=== PATIENT | female | born 1935 | race Caucasian/White ===

== ENCOUNTER 2016-10-12 16:04 | Emergency (ER) | payer OTHER ==
[2016-10-12 16:19] VITALS: BP 142/67; BMI 24.3
--- NOTE | 2016-10-12 18:44 | DR.GENAD ---
HPI - PCP Primary Care Physician: SUHAIL REINA - Complaint/Symptoms Chief Complaint Doctors Comments: Patient fell two weeks ago, again last week. Today c/o left shoulder pain unable to abduct arm. Chief Complaint:: LIMITED ROM OF LEFT ARM,PAIN TO TOUCH, PAIN IN LEFT NECK - Source History Provided: Patient, Family Member - Mode of Arrival Mode of Arrival: Ambulatory - Timing Onset of Chief Complaint: 10/11/16 PMH - PMH Past Medical History: Yes Past Medical History: Diabetes, Hypertension Past Surgical History: Yes Surgical History: Cholecystectomy, Hysterectomy, Ortho Surgery - Family History History of Family Medical Conditions: Yes Family Medical History: ID - Social History Does patient currently use any type of tobacco product: No Have you used tobacco products in the last 12 months: No Type of Tobacco Use: None Does any household member use tobacco: Yes Alcohol Use: None Do you use any recreational Drugs:: No Lives With: Alone Lives Where: Home - infectious screening In the last 2 months have you had wt loss of >10#?: NO Have you had fever, night sweats or hemotysis?: No Have you traveled outside the country in the last 6 months?: No Isolation: Standard ROS - Review of Systems Constitutional: No Symptoms Reported Eyes: No Symptoms Reported ENTM: No Symptoms Reported Respiratoy: No Symptoms Reported Cardiovascular: No Symptoms Reported Gastrointestinal/Abdominal: No Symptoms Reported Genitourinary: No Symptoms Reported Neurological: No Symptoms Reported Musculoskeletal: Joint Pain Integumentary: No Symptoms Reported Hematologic/Lymphatic: No Symptoms Reported Endocrine: No Symptoms Reported Psychiatric: No Symptoms Reported All Other Systems: Reviewed and Negative PE - Vital Signs Vitals: Temperature 97.3 F Pulse Rate 84 Respiratory Rate 16 Blood Pressure [Right Calf] 136/67 Blood Pressure [Left Calf] 155/63 Blood Pressure [Left Arm] 130/65 Blood Pressure [Right Arm] 135/67 Blood Pressure 142/67 O2 Sat by Pulse Oximetry 99 - General Limitations: No Limitations General Appearance: Alert, In No Apparent Distress - Head Head Exam: Normal Inspection, Atraumatic - Eyes Eye exam: Normal Appearance, PERRL, EOMI - ENT ENT Exam: Normal Exam External Ear Exam: Normal External Inspection TM/Canal Exam: Bilateral Normal Nose Exam: Normal Nose Exam Mouth Exam: Normal Inspection Throat Exam: Normal Inspection - Neck Neck Exam: Normal Inspection - Chest Chest Inspection: Normal Inspection - Respiratory Respiratory Exam: Normal Lung Sounds Bilat Respiratory Exam: Bilateral Clear to Auscultation - Cardiovascular Cardiovascular Exam: Regular Rate, Normal Rhythm - Abdominal Exam Abdominal Exam: Normal Inspection Abdominal Tenderness: negative: RUQ, RLQ, LUQ, LLQ, Epigastrium, Suprapubic, Diffuse, Mild, Moderate, Severe, Other - Extremities Extremities Exam: Normal Inspection - Back Back Exam: Normal Inspection - Neurologic Neurological Exam: Alert, Oriented X3, CN II-XII Intact - Psychiatric Psychiatric Exam: Normal Affect - Skin Skin Exam: Warm, Dry, Intact ROR - XRAY XRAY Interpreted by: Radiologist (Shoulder: negative for fracture; Mild osteoarthrosis of the left AC joint. 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
--- NOTE | 2016-10-12 19:10 | RAD ---
Two views of the left arm indication: Arm pain after fall 2 weeks prior with limited range of motion Findings: There is no fracture or dislocation within the left arm. No localizing soft tissue swellin g. Glenohumeral joint alignment is maintained. Mild osteoarthrosis of the left AC joint. Osteopenia is noted within the left upper extremity No displaced left-sided rib fracture identified. Impression: No acute radiographic abnormality within the left arm. Reported By:
[2016-10-12] MEDS ORDERED: DECADRON INJ IM ONE (19:30)
[2016-10-12] MEDS ORDERED: DECADRON INJ ONE (19:58)
== END 2016-10-12 20:10 | disposition home or self-care (01) ==
LOC: ER 16:28
DX: M19.012 Primary osteoarthritis, left shoulder (principal); W19.XXXA Unspecified fall, initial encounter
CPT/HCPCS: 73060; 96372; 99282; J1100

== ENCOUNTER → 2017-01-13 | Outpatient (CLI) | payer OTHER ==
--- NOTE | 2017-01-13 14:25 | MRI ---
Left shoulder MRI without contrast Indication: Shoulder pain with history of falls Technique: Multi sequence, multiplanar MR images of the left shoulder were obtained without contrast . Comparison: Left humerus radiograph October 12, 2016 Findings: Bone marrow signal appears normal. No acute fracture, malalignment or suspicious osseous l esion is identified. There is moderate tendinosis of the supraspinatus tendon without discrete tear identified. There is also moderate tendinosis of the infraspinatus, which demonstrates a focal, possibly full-thickness t ear of its mid fibers at the footplate with a laminating component extending to the myotendinous donna ction. Moderate fluid is present within the deep delaminating defect. There is a low grade, partial thickness articular sided tear of the mid subscapularis tendon, also with a delaminating component e xtending to the myotendinous junction (sagittal PD images 11-15, series 901). The teres minor appear s intact. There is no significant atrophy or edema of the rotator cuff musculature. There is mild degenerative arthrosis of the AC joint. A small os acromiale is suspected along the an terior aspect of the acromion (best appreciated on sagittal T1 images 18-20, series 801). There is n o appreciable edema of the synchondrosis. The type 2 acromion shows no appreciable anterior or later al downsloping. There is moderate fluid within the subdeltoid/subacromial bursa. There is mild chond romalacia of the glenohumeral joint. The long head biceps tendon appears intact and is appropriately positioned within the bicipital groo ve. There are tears of the anterior superior, superior posterior as well as posterior inferior gleno id labrum. Impression: 1. Diffuse rotator cuff tendinosis with focal, likely full thickness tear of the mid infraspinatus a nd partial thickness articular sided tear of the mid subscapularis tendon, both of which demonstrate delaminating components extending to the myotendinous junctions, as detailed above. 2. Large labral tears, involving the anterior superior, posterior superior and posterior inferior la cipriano. 3. Mild AC joint DJD with moderate fluid in the subdeltoid bursa, compatible with bursitis. A small os acromiale is also suspected. Reported By:
== END | disposition home or self-care (01) | DRG 556 ==
LOC: RAD 09:21
PROVIDERS: ATTEND Internal Medicine
DX: M25.512 Pain in left shoulder (principal); S43.492A Other sprain of left shoulder joint, initial encounter; X58.XXXA Exposure to other specified factors, initial encounter
CPT/HCPCS: 73221

== ENCOUNTER 2017-01-27 10:06 | Observation (INO) | payer OTHER ==
[2017-01-27] MEDS ORDERED: HumuLIN R SUBCUT PRN (11:32)
[2017-01-27 12:00] LABS: BASOPHILS # (AUTO) 0.1 X10^3/uL (0.0-0.1); BASOPHILS % (AUTO) 0.4 % (0.2-1.0); HEMATOCRIT 38.2 % (36.0-47.0); HEMOGLOBIN 13.2 g/dL (12.0-16.0); LYMPHOCYTES # (AUTO) 1.9 X10^3/uL (1.3-2.9); LYMPHOCYTES % (AUTO) 12.8 % (21.0-51.0); MEAN CORPUSCULAR HEMOGLOBIN 33.3 pg (27.0-34.0); MEAN CORPUSCULAR HGB CONC 34.5 g/dL (33.0-35.0); MEAN CORPUSCULAR VOLUME 96.6 fL (80.0-100.0); MEAN PLATELET VOLUME 8.5 fL (7.4-11.0); MONOCYTES # (AUTO) 1.2 x10^3/uL (0.3-0.8); MONOCYTES % (AUTO) 7.6 % (0.0-13.0); NEUTROPHILS % (AUTO) 79.2 % (42.0-75.0); PLATELET COUNT 288 X10^3/uL (150.0-450.0); RED BLOOD COUNT 3.96 X10^6/uL (3.5-5.4); RED CELL DISTRIBUTION WIDTH 14.5 % (11.6-16.5); WHITE BLOOD COUNT 15.2 X10^3/uL (3.6-10.0)
[2017-01-27 12:19] LABS: ALANINE AMINOTRANSFERASE 105 Units/L (12-78); ALBUMIN 4.1 g/dL (3.4-5.0); ALKALINE PHOSPHATASE 83 Units/L (46-116); ASPARTATE AMINO TRANSFERASE 77 Units/L (15-37); BLOOD UREA NITROGEN 17 mg/dL (7-18); CALCIUM 8.9 mg/dL (8.5-10.1); CARBON DIOXIDE 26.7 mmol/L (21-32); CHLORIDE 98 mmol/L (98-107); CREATININE 0.64 mg/dL (0.55-1.02); GLUCOSE 64 mg/dL (65-99); SODIUM 135 mmol/L (136-145); TOTAL PROTEIN 7.9 g/dL (6.4-8.2); eGFR BLACK RACES > 60 (>60); eGFR NON BLACK RACES > 60 (>60)
[2017-01-27 13:00] VITALS: BMI 22.6
[2017-01-27] MEDS: TORADOL 15 MG VIAL IVP SCH ×3 (13:05→23:58)
[2017-01-27] MEDS: NS 1000 ML 1,000 ML IV SCH (13:06)
--- NOTE | 2017-01-27 13:22 | DR.UPDATE ---
H&P Update History and Physical Update: WAS SEEN IN THE OFFICE ON 01/26/17. A H&P WAS COMPLETED PRIOR TO ADMISSION. PATIENT HAS BEEN SEEN AND EXAMINED WITH NO CHANGES NOTED. Changes noted: NO Yes with the following:
--- NOTE | 2017-01-27 15:49 | MRI ---
Reported By: ORY: Severe neck pain. Study: MRI cervical spine without contrast. Comparison: None. Technique: Multiplanar multisequence MRI of the cervical spine was obtained utilizing standard depar tmental protocol. Findings: The visualized posterior fossa appears normal. No cerebellar tonsillar ectopia. Anatomic alignment w ithout acute fracture or listhesis. Multilevel disc desiccation without significant disc height loss . Visualized bone marrow signal appears normal. The spinal cord demonstrates normal course, caliber, and signal characteristics. The prevertebral soft tissues appear normal. C2 -- C3: No significant disc bulge, neural foraminal narrowing, or spinal canal stenosis. C3 -- C4: Broad-based disc bulge with associated uncovertebral hypertrophy causing moderate to sever e bilateral neural foraminal narrowing. No significant spinal canal stenosis. Suggestion of posterio r annular tear. C4 -- C5: Broad-based disc bulge with associated uncovertebral hypertrophy causing mild/moderate lef t neural foraminal narrowing. No significant right neural foraminal narrowing or spinal canal stenos is. C5 -- C6: No significant disc bulge, neural foraminal narrowing, or spinal canal stenosis. C6 -- C7: Broad-based disc bulge with associated uncovertebral hypertrophy causing moderate left shannon ral foraminal narrowing and spinal canal stenosis to 10 mm. No significant right neural foraminal na rrowing. C7 -- T1: Broad-based disc bulge and associated uncovertebral hypertrophy causing moderate to severe right and moderate left neural foraminal narrowing. Spinal canal stenosis to 8 mm. IMPRESSION: Multilevel degenerative changes of the cervical spine as above.
[2017-01-27] MEDS: SNACK - Diabetic Appropriate PO SCH (20:17)
[2017-01-27] MEDS ORDERED: NORCO 7.5/325 MG TAB PO PRN (21:08)
[2017-01-27] MEDS ORDERED: NEURONTIN CAP 300 MG PO SCH (21:08)
[2017-01-27] MEDS ORDERED: GLUCOPHAGE PO SCH (21:09)
[2017-01-27] MEDS ORDERED: PATIENT'S HOME MEDICATION (Simvastatin [Simvastatin] 1 TAB) PO SCH (21:10)
[2017-01-27] MEDS ORDERED: QUINAPRIL HCL 20 MG PO SCH (21:10)
[2017-01-27] MEDS ORDERED: PATIENT'S HOME MEDICATION PO SCH (21:30)
[2017-01-27] MEDS ORDERED: GLUCOPHAGE ONE (23:51)
[2017-01-27] MEDS: ZYLOPRIM PO SCH (23:55)
[2017-01-27] MEDS: DULOXETINE HCL PO SCH (23:56)
[2017-01-27] MEDS: ANTIVERT TAB 25 MG PO SCH (23:57)
[2017-01-27] MEDS: ZOCOR TAB 40 MG PO SCH (23:58)
[2017-01-28] MEDS: NS 1000 ML 1,000 ML IV SCH ×3 (01:11→18:18)
[2017-01-28] MEDS: TORADOL 15 MG VIAL IVP SCH ×4 (05:41→23:38)
[2017-01-28 06:13] LABS: ALANINE AMINOTRANSFERASE 70 Units/L (12-78); ALBUMIN 3.2 g/dL (3.4-5.0); ALKALINE PHOSPHATASE 70 Units/L (46-116); ASPARTATE AMINO TRANSFERASE 38 Units/L (15-37); BLOOD UREA NITROGEN 11 mg/dL (7-18); CALCIUM 8.1 mg/dL (8.5-10.1); CARBON DIOXIDE 25.2 mmol/L (21-32); CHLORIDE 104 mmol/L (98-107); COR CA(FOR HYPOALB) 8.7 mg/dL (8.5-10.1); COR NA(FOR HYPERGLY) 138 mmol/L (136-145); CREATININE 0.62 mg/dL (0.55-1.02); GLUCOSE 116 mg/dL (65-99); SODIUM 138 mmol/L (136-145); TOTAL PROTEIN 6.4 g/dL (6.4-8.2); eGFR BLACK RACES > 60 (>60); eGFR NON BLACK RACES > 60 (>60)
[2017-01-28 06:17] LABS: BASOPHILS % (AUTO) 0.1 % (0.2-1.0); HEMATOCRIT 34.7 % (36.0-47.0); HEMOGLOBIN 12.1 g/dL (12.0-16.0); LYMPHOCYTES # (AUTO) 1.5 X10^3/uL (1.3-2.9); LYMPHOCYTES % (AUTO) 20.7 % (21.0-51.0); MEAN CORPUSCULAR HEMOGLOBIN 33.6 pg (27.0-34.0); MEAN CORPUSCULAR HGB CONC 34.8 g/dL (33.0-35.0); MEAN CORPUSCULAR VOLUME 96.4 fL (80.0-100.0); MEAN PLATELET VOLUME 8.6 fL (7.4-11.0); MONOCYTES # (AUTO) 0.4 x10^3/uL (0.3-0.8); MONOCYTES % (AUTO) 4.8 % (0.0-13.0); NEUTROPHILS # (AUTO) 5.5 x10^3/uL (2.2-4.8); NEUTROPHILS % (AUTO) 74.4 % (42.0-75.0); PLATELET COUNT 223 X10^3/uL (150.0-450.0); RED CELL DISTRIBUTION WIDTH 14.4 % (11.6-16.5); WHITE BLOOD COUNT 7.4 X10^3/uL (3.6-10.0)
[2017-01-28] MEDS ORDERED: GLUCOTROL PO SCH (07:00)
[2017-01-28] MEDS: ACCUPRIL PO SCH (08:56)
[2017-01-28] MEDS: NORVASC TAB 10 MG PO SCH (08:56)
[2017-01-28] MEDS: ANTIVERT TAB 25 MG PO SCH ×2 (08:56→21:28)
[2017-01-28] MEDS: DULOXETINE HCL PO SCH (08:57)
[2017-01-28] MEDS: SINGULAIR TAB 10 MG PO SCH (08:59)
[2017-01-28] MEDS ORDERED: GLIPIZIDE 5 MG PO SCH (09:00)
[2017-01-28] MEDS ORDERED: MILK OF MAGNESIA PO PRN (10:24)
[2017-01-28] MEDS: CYMBALTA PO SCH (11:14)
[2017-01-28] MEDS: PERCOCET TAB 5/325 MG PO SCH ×3 (11:15→21:28)
[2017-01-28] MEDS: NEURONTIN CAP 300 MG PO SCH ×2 (13:15→21:28)
--- NOTE | 2017-01-28 16:14 | PCM.PROG ---
Progress Note - Progress Note for Day of Date: 01/28/17 - Subjective Subjective: IS ALERT AND ORIENTED, SITTING UP IN BED ON MORNING ROUNDS. PATIENT'S DAUGHTER IS AT BEDSIDE. PATIENT IS NOTED WITH COMPLAINTS OF NECK PAIN AND LEFT SHOULDER PAIN. SHE REPORTS SOME RELIEF OF PAIN AFTER RECEIVING TORADOL, BUT STATES THAT PAIN RETURNS WHEN MEDICATION WEARS OFF. VITAL THIS MORNING ARE 98.1-86-18-94%-110/59. CBC REPORTS WBC 7.9, HGB 12.1, HCT 34.7. CMP REPORTS SODIUM 138, POTASSIUM 3.8, BUN 11, CREATININE 0.62, GLUCOSE 116, AST 38, ALT 70, TOTAL PROTEIN 6.4, ALBUMIN 3.2. ALL OTHER VALUES WITHIN NORMAL LIMITS. WE OBTAINED A CERVICAL SPINE CT WITHOUT CONTRAST. IT REPORTED MULTILEVEL DEGENERATIVE CHANGES OF THE C-SPINE. WE WILL START GABAPENTIN 300MG PO TID, PERCOCET 5/325 PO TID, AND PROZAC 30MG DAILY TO CONTROL PAIN. WE PLAN TO RECHECK LABS AND FOLLOW UP WITH PATIENT IN AM. - Past Medical Family Social History Past Med/Fam/Surg Hx: No changes since H&P Allergies: Allergies aspirin Allergy (Verified 01/27/17 11:32) fluconazole [From Diflucan] Allergy (Verified 01/27/17 11:08) rofecoxib [From Vioxx] Allergy (Verified 01/27/17 11:08) tizanidine [From Zanaflex] Allergy (Verified 01/27/17 11:08) - Review of Systems ROS: No change since H&P - Vital Signs and I&O's Vital Signs: Temperature 98.2 F Pulse Rate [Right Brachial] 85 Respiratory Rate 20 Blood Pressure [Right Calf] 136/67 Blood Pressure [Left Calf] 155/63 Blood Pressure [Left Arm] 130/65 Blood Pressure [Right Arm] 129/58 Blood Pressure 142/67 O2 Sat by Pulse Oximetry 97 Intake and Output: Intake & Output 01/26/17 01/27/17 01/28/17 01/29/17 11:59 11:59 11:59 11:59 Intake Total 1514 1194 Output Total 500 800 Balance 1014 394 - Physical Exam Oriented: Normal Eyes: Normal Ear: Normal Nose: Normal Throat: Normal Respiratory: Normal Cardiovascular: Normal : Normal Auscultation: Bowel Sounds: Normal Palpation: Normal Tenderness: Normal Skin: Normal Musculoskeletal: Left, Shoulder (PAIN AND TENDERNESS TO LEFT SHOULDER AND NECK ) , Tender Psychiatric: Normal. negative: Anxiety, Depression, Agitation, Other Mood Description: Calm Affect: Normal Speech Pattern: Clear, Appropriate - Laboratory and Diagnostics Result Diagrams: 01/28/17 05:33 01/28/17 11:40 Labs: Laboratory WBC 7.4 X10^3/uL (3.6-10.0) 01/28/17 05:33 RBC 3.60 X10^6/uL (3.5-5.4) 01/28/17 05:33 Hgb 12.1 g/dL (12.0-16.0) 01/28/17 05:33 Hct 34.7 % (36.0-47.0) L 01/28/17 05:33 MCV 96.4 fL (80.0-100.0) 01/28/17 05:33 MCH 33.6 pg (27.0-34.0) 01/28/17 05:33 MCHC 34.8 g/dL (33.0-35.0) 01/28/17 05:33 RDW 14.4 % (11.6-16.5) 01/28/17 05:33 Plt Count 223 X10^3/uL (150.0-450.0) 01/28/17 05:33 MPV 8.6 fL (7.4-11.0) 01/28/17 05:33 Neut % 74.4 % (42.0-75.0) 01/28/17 05:33 Lymph % 20.7 % (21.0-51.0) L 01/28/17 05:33 Bradford % 4.8 % (0.0-13.0) 01/28/17 05:33 Eos % 0.0 % (0.9-2.9) L 01/28/17 05:33 Baso % 0.1 % (0.2-1.0) L 01/28/17 05:33 Neut # 5.5 x10^3/uL (2.2-4.8) H 01/28/17 05:33 Lymph # 1.5 X10^3/uL (1.3-2.9) 01/28/17 05:33 Bradford # 0.4 x10^3/uL (0.3-0.8) 01/28/17 05:33 Eos # 0.0 x10^3/uL (0.0-0.2) 01/28/17 05:33 Baso # 0.0 X10^3/uL (0.0-0.1) 01/28/17 05:33 Absolute Nucleated RBC 0.1 /100WBC 01/28/17 05:33 Sodium 138 mmol/L (136-145) 01/28/17 05:33 Corrected Sodium 138 mmol/L (136-145) 01/28/17 05:33 Potassium 3.8 mmol/L (3.5-5.1) 01/28/17 05:33 Chloride 104 mmol/L (98-107) 01/28/17 05:33 Carbon Dioxide 25.2 mmol/L (21-32) 01/28/17 05:33 BUN 11 mg/dL (7-18) 01/28/17 05:33 Creatinine 0.62 mg/dL (0.55-1.02) 01/28/17 05:33 Est GFR (MDRD) Af Amer > 60 (>60) 01/28/17 05:33 Est GFR (MDRD) Non-Af > 60 (>60) 01/28/17 05:33 Glucose 63 mg/dL (65-99) L 01/28/17 11:40 Calcium 8.1 mg/dL (8.5-10.1) L 01/28/17 05:33 Corrected Calcium 8.7 mg/dL (8.5-10.1) 01/28/17 05:33 Total Bilirubin 0.30 mg/dL (0.2-1.0) 01/28/17 05:33 AST 38 Units/L (15-37) H 01/28/17 05:33 ALT 70 Units/L (12-78) 01/28/17 05:33 Alkaline Phosphatase 70 Units/L (46-116) 01/28/17 05:33 Total Protein 6.4 g/dL (6.4-8.2) 01/28/17 05:33 Albumin 3.2 g/dL (3.4-5.0) L 01/28/17 05:33 Globulin 3.2 g/dL (2.5-4.5) 01/28/17 05:33 Albumin/Globulin Ratio 1.0 Ratio (1.1-2.1) L 01/28/17 05:33 - Plan (1) Neck pain Status: Acute Plan: TORADOL 15MG IV Q6H, GABAPENTIN 300MG TID, PERCOCET 5/325 TID, CONTINUE TO MONITOR (2) Shoulder pain, left Status: Acute Qualifiers: Chronicity: acute Qualified Code(s): M25.512 - Pain in left shoulder Plan: TORADOL 15MG IV Q6H, GABAPENTIN 300MG TID, PERCOCET 5/325 TID, CONTINUE TO MONITOR (3) Depression Status: Acute Qualifiers: Depression Type: major depressive disorder Major depression recurrence: recurrent Active/Remission status: currently active Major depression episode severity: moderate Psychotic features: P Trimester: T Qualified Code(s): F33.1 - Major depressive disorder, recurrent, moderate Plan: DULOXETINE 30MG PO DAILY, CONTINUE TO MONITOR
[2017-01-28] MEDS: SNACK - Diabetic Appropriate PO SCH (20:00)
[2017-01-28] MEDS ORDERED: COLACE CAP 100 MG PO SCH (21:00)
[2017-01-28] MEDS: ZOCOR TAB 40 MG PO SCH (21:28)
[2017-01-28] MEDS: ZYLOPRIM PO SCH (21:28)
[2017-01-29] MEDS: NS 1000 ML 1,000 ML IV SCH (05:34)
[2017-01-29] MEDS: PERCOCET TAB 5/325 MG PO SCH (05:35)
[2017-01-29] MEDS: NEURONTIN CAP 300 MG PO SCH (05:36)
[2017-01-29] MEDS: TORADOL 15 MG VIAL IVP SCH (05:37)
[2017-01-29 05:53] LABS: BASOPHILS % (AUTO) 0.5 % (0.2-1.0); EOSINOPHILS # (AUTO) 0.1 x10^3/uL (0.0-0.2); EOSINOPHILS % (AUTO) 0.9 % (0.9-2.9); HEMOGLOBIN 13.1 g/dL (12.0-16.0); LYMPHOCYTES # (AUTO) 4.7 X10^3/uL (1.3-2.9); LYMPHOCYTES % (AUTO) 49.4 % (21.0-51.0); MEAN CORPUSCULAR HEMOGLOBIN 33.2 pg (27.0-34.0); MEAN CORPUSCULAR HGB CONC 34.4 g/dL (33.0-35.0); MEAN CORPUSCULAR VOLUME 96.7 fL (80.0-100.0); MEAN PLATELET VOLUME 8.8 fL (7.4-11.0); MONOCYTES # (AUTO) 0.8 x10^3/uL (0.3-0.8); NEUTROPHILS # (AUTO) 3.9 x10^3/uL (2.2-4.8); NEUTROPHILS % (AUTO) 41.2 % (42.0-75.0); PLATELET COUNT 253 X10^3/uL (150.0-450.0); RED BLOOD COUNT 3.93 X10^6/uL (3.5-5.4); RED CELL DISTRIBUTION WIDTH 14.3 % (11.6-16.5); WHITE BLOOD COUNT 9.4 X10^3/uL (3.6-10.0)
[2017-01-29 06:01] LABS: ALANINE AMINOTRANSFERASE 64 Units/L (12-78); ALBUMIN 3.2 g/dL (3.4-5.0); ALKALINE PHOSPHATASE 74 Units/L (46-116); ASPARTATE AMINO TRANSFERASE 35 Units/L (15-37); BLOOD UREA NITROGEN 10 mg/dL (7-18); CALCIUM 8.1 mg/dL (8.5-10.1); CARBON DIOXIDE 26.4 mmol/L (21-32); CHLORIDE 101 mmol/L (98-107); COR CA(FOR HYPOALB) 8.7 mg/dL (8.5-10.1); CREATININE 0.59 mg/dL (0.55-1.02); SODIUM 136 mmol/L (136-145); TOTAL PROTEIN 6.6 g/dL (6.4-8.2); eGFR BLACK RACES > 60 (>60); eGFR NON BLACK RACES > 60 (>60)
[2017-01-29 06:11] LABS: GLUCOSE 80 mg/dL (65-99)
[2017-01-29] MEDS: SINGULAIR TAB 10 MG PO SCH (08:24)
[2017-01-29] MEDS: ANTIVERT TAB 25 MG PO SCH (08:25)
[2017-01-29] MEDS: ACCUPRIL PO SCH (08:25)
[2017-01-29] MEDS: NORVASC TAB 10 MG PO SCH (08:25)
[2017-01-29 08:45] VITALS: BP 125/88
[2017-01-29] MEDS: CYMBALTA PO SCH (11:20)
== END 2017-01-29 12:15 | disposition home or self-care (01) ==
LOC: ICU 10:06 → UNDOADMOB 10:06 → ICU 11:13
PROVIDERS: ADMIT Internal Medicine; ATTEND Internal Medicine
DX: M54.2 Cervicalgia (principal); M25.512 Pain in left shoulder; M50.93 Cervical disc disorder, unspecified, cervicothoracic region; E11.649 Type 2 diabetes mellitus with hypoglycemia without coma; E78.2 Mixed hyperlipidemia; I10 Essential (primary) hypertension; F33.1 Major depressive disorder, recurrent, moderate; R74.8 Abnormal levels of other serum enzymes
CPT/HCPCS: 36415; 72141; 80053; 82947; 85025; A4222; G0378

== ENCOUNTER → 2017-04-05 | Outpatient (CLI) | payer OTHER ==
--- NOTE | 2017-04-05 17:28 | MG ---
Examination: Bilateral screening mammogram. Clinical history: Routine screening. Technique: Digital CC and MLO views of both breasts were obtained. Computer aided detection analysis was performed and used during the interpretation. Comparison: 04/01/2016. Findings: The breasts are composed of scattered fibroglandular densities. Innumerable scattered benign-appeari ng calcifications and vascular calcifications are noted in the breasts bilaterally. Stable benign-wendi earing densities are present in the left breast. No suspicious mass, area of architectural distortion or suspicious cluster of microcalcifications is noted. Impression: 1. No mammographic evidence of malignancy. BI-RADS category 2-benign findings. Recommend routine annual screening mammogram. Diagnostic CAD was utilized and reviewed. * 0 (ZERO) - ASSESSMENT INCOMPLETE; ADDITIONAL IMAGING IS NEEDED. * 0C - ASSESSMENT INCOMPLETE, NEEDS ADDITIONAL IMAGING EVALUATION AND/OR PRIOR MAMMOGRAMS FOR COMPARI SON. * 1/1 (ONE) - NEGATIVE. * 2/II (TWO) - BENIGN FINDINGS. * 3/III (THREE) - PROBABLY BENIGN FINDING; SHORT INTERVAL FOLLOW-UP SUGGESTED. * 4/IV (FOUR) - SUSPICIOUS ABNORMALITY; BIOPSY SHOULD BE CONSIDERED. * 5/V - HIGHLY SUSPICIOUS OF MALIGNANCY; BIOPSY SHOULD BE PERFORMED. * 6/IV - KNOWN BIOPSY PROVEN MALIGNANCY-APPROPRIATE ACTION SHOULD BE TAKEN. A NEGATIVE X-RAY REPORT SHOULD NOT DELAY BIOPSY IF A DOMINANT OR CLINICALLY SUSPICIOUS MASS IS PRESENT; 4 TO 8 PERCENT OF CANCERS ARE NOT IDENTIFIED BY X-RAY. A NEGATIVE REPORT MAY REINFORCE THE CLINICAL IMPRESSION. ADENOSIS AND DENSE BREASTS MAY OBSCURE AN UNDERLYING NEOPLASM. Reported By:
== END ==
LOC: RAD 13:09
PROVIDERS: ATTEND Internal Medicine
DX: Z12.31 Encounter for screening mammogram for malignant neoplasm of breast (principal)
CPT/HCPCS: 77067

== ENCOUNTER → 2017-05-03 | Outpatient (CLI) | payer OTHER ==
--- NOTE | 2017-05-03 17:05 | MRI ---
STUDY: MRI OF THE CERVICAL SPINE HISTORY: Chronic neck pain. Comparison: MRI dated January 27, 2017. Technique: An MRI of the cervical spine including sagittal T1, T2, and T2 STIR, axial T1, and T2 FSE images was performed using standard departmental protocol. Findings: Sagittal images: Visualized portions of the posterior fossa are within normal limits. The craniocervical junction is unremarkable. Vertebral body heights and alignment are within normal limits. Marrow signal is age-ap propriate. There is no evidence for fracture or significant bone marrow edema. There is no signific ant prevertebral soft tissue swelling. The surrounding paraspinal soft tissues are unremarkable. Th ere is no evidence of cord compression. No intrinsic signal abnormalities are identified in the spin al cord itself. Axial images: C2 -- C3: Normal. C3 -- C4: There is a posterior disc osteophyte complex and bilateral uncovertebral osteophyte formati on. This results in mild central canal stenosis. There is mild right neural foraminal stenosis. The l eft neural foramen is adequate. C4 -- C5: There is a shallow disc osteophyte complex and bilateral uncovertebral osteophyte formation . The central canal and right neural foramina are adequate. There is mild left neural foraminal steno sis. C5 -- C6: There is a posterior disc osteophyte complex and bilateral uncovertebral osteophyte formati on. The central canal and neural foramina are adequate. C6 -- C7: There is a shallow disc osteophyte complex and bilateral uncovertebral osteophyte formation . The central canal neural foramina are adequate. C7 -- T1: Normal. IMPRESSION: 1. Multilevel cervical spondylosis as described, probably most prominent at C3/4. 2. Mild spinal stenosis at C3/4. 3. Please see above for detail. Reported By:
== END ==
LOC: RAD 13:44
PROVIDERS: ATTEND Physician Assistant
DX: M50.21 Other cervical disc displacement, high cervical region (principal)
CPT/HCPCS: 72141

== ENCOUNTER → 2017-06-28 | Outpatient (CLI) | payer OTHER ==
--- NOTE | 2017-06-29 12:30 | MRI ---
MRI right knee without contrast Indication: Right knee pain with stiffness Comparison: None available Technique: Multiplanar, multi sequence imaging of the right knee without IV contrast administration. Findings: The extensor mechanism is intact. The patella demonstrates moderate chondral thinning of th e median patellar ridge with tiny subcortical cyst formation. The patellar remains well positioned wi thin the femoral trochlea. The medial and lateral retinacular complex are intact. Small suprapatellar joint effusion. The pes anserine tendons are normal. The popliteus muscle and tendon are normal. No popliteal fossa cyst. The medial femorotibial compartment demonstrates moderate tibial plateau and mild femoral condyle sub chondral bone marrow edema with diffuse thinning of the overlying articular cartilage. No discrete mcmillan bchondral depression or fracture identified. There is edema within the lateral most aspect of the fib ular head also without evidence of fracture the lateral femorotibial compartment demonstrates mild ch ondral thinning without subchondral bone marrow edema. The ACL is torn, given lack surrounding edema likely is chronic tear. The PCL is lax with intermediate signal likely secondary to patient hyperexte nsion however a chronic PCL injury/tear is not excluded. No high-grade or acute tear. The superficial MCL is intact. The fibular collateral ligament is normal. The biceps femoris is intact however does insert at the edematous fibular head. Iliotibial band is normal. Neither meniscus demonstrates tear. There is a mildly PD/T2 signal hyperintensity within the posterior aspect of the proximal tibial meta physis with mildly decreased T1 signal seen on sagittal image 15. The adjacent cortical bone is intac t. There is no subperiosteal edema or reaction. Impression: 1.Moderate osteoarthrosis of the medial femorotibial compartment with bone marrow edema within the me dial tibial plateau and femoral condyles. Moderate chondromalacia and chondral thinning of the median patellar ridge with subchondral bone marrow edema also in the setting of osteoarthrosis. 2. Nonspecific bone marrow edema within the fibular head, this likely represent contusion as no discr ete fracture is identified. The adjacent biceps femoris and fibular collateral ligaments attachment a re maintained. 3. Chronic appearing full-thickness tear of the ACL with anterior translation the tibial tuberosity. 4. Abnormal morphology and intermediate signal within the PCL is likely secondary to redundancy in th e setting of hyperextension however a chronic PCL injury is possible. 5. Indeterminate lobular PD/T2 hyperintense area within the posterior medullary portion of the proxim al tibial metaphysis likely represents asymmetric bone marrow reconversion; however, if there is a hi story of malignancy correlation with contrast-enhanced knee MRI would be indicated to exclude bony me tastatic disease. A nuclear medicine bone scan can also be performed however there is concern for art ifactual increased radiotracer uptake in this location secondary to the adjacent medial femorotibial compartment DJD. Reported By:
== END | disposition home or self-care (01) | DRG 556 ==
LOC: RAD 11:21
PROVIDERS: ATTEND Internal Medicine
DX: M25.561 Pain in right knee (principal); S83.511A Sprain of anterior cruciate ligament of right knee, initial encounter; X58.XXXA Exposure to other specified factors, initial encounter
CPT/HCPCS: 73721

== ENCOUNTER 2017-07-24 15:59 | Emergency (ER) | payer OTHER ==
[2017-07-24 16:07] VITALS: BP 179/79; BMI 27.4
[2017-07-24] MEDS ORDERED: PHENERGAN INJ 25 MG IM ONE (16:42)
[2017-07-24] MEDS ORDERED: DEMEROL INJ IM ONE (16:42)
--- NOTE | 2017-07-24 16:43 | DR.GENAD ---
HPI - PCP Primary Care Physician: LATOSHA - Complaint/Symptoms Chief Complaint Doctors Comments: Patient states she was at the mall two days ago and was walking from [facility] to [facility] when she go tired and set in her rolling walker and her daughter was pushing her when they hit an uneven place on the floor and the wheels got caught and she fell backwards hitting her head on the cement and her right ribs. She has some bruisin on her right leg but she went to [facility] and she checked her out and put a dressing on her bruising since the patient did not want to come to the emergency room. Patient states the pain is 8 of 10. and she has been taking tylenol for pain. She has some hydrocortisone at home but has not taken any. Chief Complaint:: PATIENT FAMILY STATED THAT PATIENT WAS AT THE MALL A COUPLE OF DAYS AGO AND WAS SITTING ON HER ROLLING WALKER AND IT FLIPPED AND CAUSED PATIENT TO FALL AND HIT HER HEAD AND RIGHT SIDE OF HER RIBS TO FEEL LIKE THEY ARE BROKEN. - Nurses notes reviewed Nurses Notes Review: Yes - Source History Provided: Patient, Family Member - Mode of Arrival Mode of Arrival: Ambulatory - Timing Onset of Chief Complaint: 07/21/17 Came on: Suddenly - Duration Duration: Intermittent How lon Duration: Days - Location Location: right ribs; back of head - Severity Severity: Moderate - Modifying Factors Worsens:: nothing Improves:: nothing PMH - PMH Past Medical History: Yes Past Medical History: Diabetes, Hypertension Past Surgical History: Yes Surgical History: Cholecystectomy, Hysterectomy, Joint Replacement, Ortho Surgery - Family History History of Family Medical Conditions: Yes Family Medical History: Diabetes Mellitus, Cancer, Hypertension - Social History Does patient currently use any type of tobacco product: No Have you used tobacco products in the last 12 months: No Type of Tobacco Use: None Does any household member use tobacco: No Alcohol Use: None Do you use any recreational Drugs:: No Lives With: Family Lives Where: Home - infectious screening In the last 2 months have you had wt loss of >10#?: NO Have you had fever, night sweats or hemotysis?: No Have you traveled outside the country in the last 6 months?: No Isolation: Standard ROS - Review of Systems Constitutional: No Symptoms Reported. negative: See HPI, Chills, Diaphoresis, Fever, Malaise, Weakness, Irritable, Fatigue, Loss of Appetite, Other Eyes: No Symptoms Reported ENTM: No Symptoms Reported Respiratoy: No Symptoms Reported. negative: See HPI, Productive Cough, Non- Productive Cough, Moist Cough, Dry Cough, Hacking Cough, Barking Cough, Brassy Cough, Orthopnea, Short of Breath, Stridor, Wheezing, Hemoptysis, Other Cardiovascular: No Symptoms Reported. negative: See HPI, Chest Pain, Edema, Palpitations, Syncope, Cyanosis, Skin Mottling, Other Gastrointestinal/Abdominal: No Symptoms Reported Genitourinary: No Symptoms Reported. negative: See HPI, Discharge, Dysuria, Frequency, Hematuria, Pain, Bleeding, Other Neurological: No Symptoms Reported, Headache Musculoskeletal: No Symptoms Reported, Neck Pain, Right, Rib(s) Integumentary: No Symptoms Reported, Bruises (right lower leg with bruising) Hematologic/Lymphatic: No Symptoms Reported. negative: See HPI, Anemia, Blood Clots, Easy Bleeding, Easy Bruising, Swollen Glands, Lymphadenopathy, Other Endocrine: No Symptoms Reported Psychiatric: No Symptoms Reported. negative: See HPI, Anxiety, Depression, Hallucinations, Excessive crying, Suicidal, Other PE - Vital Signs Vitals: Temperature 98.2 F Pulse Rate 93 Respiratory Rate 20 Blood Pressure [Right Calf] 136/67 Blood Pressure [Left Calf] 155/63 Blood Pressure [Left Arm] 130/65 Blood Pressure [Right Arm] 125/88 Blood Pressure 179/79 O2 Sat by Pulse Oximetry 98 - General Limitations: Physical Limitation (decreased hearing) General Appearance: Alert, In Distress (moderate) - Head Head Exam: Normal Inspection, Normocephalic (occipital scalp with 3 cm nodule with ecchymosis) - Eyes Eye exam: Normal Appearance, PERRL, EOMI. negative: Scleral Icterus, Conjunctival Injection, Nystagmus, Miosis, Mydrasis, Periorbital Swelling, Periorbital Tenderness, Other - ENT ENT Exam: Normal Exam, Normal Oropharynx, Normal External Ear Exam, Mucous Membranes Moist, TM's Normal Bilaterally External Ear Exam: Normal External Inspection TM/Canal Exam: Bilateral Normal Nose Exam: Normal Nose Exam Mouth Exam: Normal Inspection. negative: Drooling, Trismus, Lip Swelling, Tongue Elevation, Tongue Swelling, Laceration, Other Throat Exam: Normal Inspection - Neck Neck Exam: Normal Inspection, Full ROM, Trachea Midline - Chest Chest Inspection: Normal Inspection, Symmetric Chest Wall Rise, Tenderness ( right chest wall tenderness; no erythema or bruising noted) - Respiratory Respiratory Exam: Normal Lung Sounds Bilat Respiratory Exam: Bilateral Clear to Auscultation - Cardiovascular Cardiovascular Exam: Regular Rate, Normal Rhythm, Normal Heart Sounds - Abdominal Exam Abdominal Exam: Normal Inspection, Normal Bowel Sounds, Soft Abdominal Tenderness: negative: RUQ, RLQ, LUQ, LLQ, Epigastrium, Suprapubic, Diffuse, Mild, Moderate, Severe, Other - Extremities Extremities Exam: Normal Inspection, Full ROM, Normal Capillary Refill. negative: Tenderness, Edema, Joint Swelling, Calf Tenderness, Other - Back Back Exam: Normal Inspection, Full ROM. negative: Tenderness, (R) CVA Tenderness, (L) CVA Tenderness, Muscle Spasm, Paraspinal Tenderness, Vertebral Tenderness, Rashes, (R) Sciatic Notch Tenderness, (L) Sciatic Notch Tendern, (R ) Straight Leg Raise, (L) Straight Leg Raise, Other - Neurologic Neurological Exam: Alert, Oriented X3, CN II-XII Intact, Reflexes Normal. negative: Normal Gait (gait not tested) - Psychiatric Psychiatric Exam: Normal Affect, Normal Mood - Skin Skin Exam: Warm, Dry, Intact, Normal Color ROR - Labs Reviewed Laboratory Results Reviewed?: Yes (all lab results reviewed and discussed with patient and daughter) - XRAY XRAY Interpreted by: Radiologist (CT head: No definite evidence of acute intracranial process.) XRAY Findings: CT chest: No acute intrathoracic process. Imaged ribs are without fracture - Diagnosis Discharge Problem: Left thyroid nodule Fall (on)(from) sidewalk curb, initial encounter Qualifiers: Encounter type: initial encounter Qualified Code(s): W10.1XXA - Fall (on)(from ) sidewalk curb, initial encounter Contusion of head Qualifiers: Encounter type: initial encounter Contusion of head detail: scalp Qualified Code(s): S00.03XA - Contusion of scalp, initial encounter Contusion of rib on right side Qualifiers: Encounter type: initial encounter Qualified Code(s): S20.211A - Contusion of right front wall of thorax, initial encounter Abrasion of right lower leg Qualifiers: Encounter type: initial encounter Qualified Code(s): S80.811A - Abrasion, right lower leg, initial encounter - Discharge Plan Disposition: 01 HOME, SELF-CARE Condition: Stable - Follow ups/Referrals Follow ups/Referrals: Suhail Gaona [Primary Care Provider] - 3 days - Instructions Instructions: Neck Contusion, Head Injury, Adult, [id number], Degenerative Disk Disease, Rib Contusion, Hematoma
[2017-07-24] MEDS ORDERED: PHENERGAN INJ 25 MG ONE (16:45)
[2017-07-24] MEDS ORDERED: DEMEROL INJ ONE (16:45)
--- NOTE | 2017-07-24 17:33 | CT ---
HISTORY: Fell a few days ago Study: CT cervical spine without contrast Comparison: None available Technique: Multiple axial images of the cervical spine were obtained from the skull base to the thora cic inlet without administration of IV contrast. Sagittal and coronal reformats were performed and r eviewed. Findings: Alignment of the cervical spine is maintained. No evidence for acute cortical disruption or subluxat ion can be seen. The central canal remains free of compromise from bony fragments or significant sof t tissue encroachment. The posterior elements appear unremarkable. The prevertebral soft tissues ar e normal in their appearance. Soft tissues demonstrate carotid artery calcifications and a small left -sided thyroid nodule..Moderate degenerative changes of the cervical spine are incidentally noted. IMPRESSION: 1. No evidence for traumatic injury of the cervical spine. Reported By:
--- NOTE | 2017-07-24 17:34 | CT ---
CT CHEST WITHOUT IV CONTRAST CLINICAL HISTORY: 81-year-old female status post fall a few days ago with right-sided chest pain. COMPARISON: None. TECHNIQUE: Contiguous axial CT images were obtained of the chest without contrast and reformatted in the sagittal and coronal planes. FINDINGS: Heart is normal in size without pericardial effusion. Calcific atherosclerosis of the coronary vessel s. No focal areas of consolidation are identified in the lungs. No pleural effusion or pneumothorax is s een. No pathologically enlarged lymph nodes are identified in the mediastinum or joe, though detection is difficult in the absence of intravenous contrast. The visualized upper abdominal structures are unremarkable. No fracture, dislocation or abnormal lytic or blastic bone lesions are identified. IMPRESSION: 1. No acute intrathoracic process. 2. Imaged ribs are without fracture. Reported By:
--- NOTE | 2017-07-24 17:37 | CT ---
CT HEAD WITHOUT CONTRAST CLINICAL HISTORY: 81-year-old female status post fall from rolling walker 3 days prior striking her h ead. COMPARISON: CT head 11/12/2014. TECHNIQUE: Multiple, non-contrasted axial CT images were obtained from the skull base to the cranial vertex. Coronal and sagittal reformats were performed. FINDINGS: There are no abnormal intra- or extra-axial fluid collections, midline shift, or mass effec t. Shine-white differentiation is normal. Global cortical involutional changes are present that are ad vanced for the patient's stated age. The ventricular system is mildly enlarged but commensurate with the degree of sulcal prominence. Periventricular and supraventricular white matter hypodensity is pre sent that is nonspecific in appearance, but most likely to represent microvascular ischemic changes. Atherosclerotic vascular calcification is present within the carotid siphons and distal vertebral art eries. The paranasal sinuses, mastoid air cells, and tympanic spaces are clear. IMPRESSION: 1. No definite evidence of an acute intracranial process. If clinical concern persists, consider MRI /MRA brain. 2. Moderate microvascular white matter ischemic changes, with associated volume loss. Reported By:
== END 2017-07-24 19:08 | disposition home or self-care (01) ==
LOC: ER 16:11
DX: S00.03XA Contusion of scalp, initial encounter (principal); S20.211A Contusion of right front wall of thorax, initial encounter; S80.811A Abrasion, right lower leg, initial encounter; E04.1 Nontoxic single thyroid nodule; W10.1XXA Fall (on)(from) sidewalk curb, initial encounter; Y92.89 Other specified places as the place of occurrence of the external cause; S09.8XXA Other specified injuries of head, initial encounter
CPT/HCPCS: 70450; 71250; 72125; 96372; 99282; 99283; J2175; J2550

== ENCOUNTER 2018-05-02 17:06 | Inpatient (IN) ==
[2018-05-02] MEDS ORDERED: DILAUDID INJ IVP PRN (17:52)
[2018-05-02] MEDS ORDERED: ZOSYN VIAL 3.375 GRAMS IV ONE (18:04)
[2018-05-02] MEDS ORDERED: NS 100 ML IV + SPIKE MINIBAG* 100 ML IV ONE (18:05)
[2018-05-02 18:27] LABS: BASOPHILS # (AUTO) 0.1 X10^3/uL (0.0-0.1); BASOPHILS % (AUTO) 0.7 % (0.2-1.0); EOSINOPHILS # (AUTO) 0.2 x10^3/uL (0.0-0.2); EOSINOPHILS % (AUTO) 2.3 % (0.9-2.9); HEMATOCRIT 34.2 % (36.0-47.0); HEMOGLOBIN 11.4 g/dL (12.0-16.0); LYMPHOCYTES # (AUTO) 1.8 X10^3/uL (1.3-2.9); LYMPHOCYTES % (AUTO) 24.5 % (21.0-51.0); MEAN CORPUSCULAR HEMOGLOBIN 31.9 pg (27.0-34.0); MEAN CORPUSCULAR HGB CONC 33.3 g/dL (33.0-35.0); MEAN PLATELET VOLUME 8.3 fL (7.4-11.0); MONOCYTES # (AUTO) 0.5 x10^3/uL (0.3-0.8); MONOCYTES % (AUTO) 6.4 % (0.0-13.0); NEUTROPHILS # (AUTO) 4.8 x10^3/uL (2.2-4.8); NEUTROPHILS % (AUTO) 66.1 % (42.0-75.0); PLATELET COUNT 378 X10^3/uL (150.0-450.0); RED BLOOD COUNT 3.57 X10^6/uL (3.5-5.4); RED CELL DISTRIBUTION WIDTH 15.6 % (11.6-16.5); WHITE BLOOD COUNT 7.3 X10^3/uL (3.6-10.0)
[2018-05-02 18:34] LABS: ALANINE AMINOTRANSFERASE 44 Units/L (12-78); ALBUMIN 2.9 g/dL (3.4-5.0); ALKALINE PHOSPHATASE 120 Units/L (46-116); ASPARTATE AMINO TRANSFERASE 26 Units/L (15-37); BLOOD UREA NITROGEN 14 mg/dL (7-18); CALCIUM 8.8 mg/dL (8.5-10.1); CARBON DIOXIDE 26.5 mmol/L (21-32); CHLORIDE 101 mmol/L (98-107); COR CA(FOR HYPOALB) 9.7 mg/dL (8.5-10.1); CREATININE 0.55 mg/dL (0.55-1.02); SODIUM 136 mmol/L (136-145); TOTAL PROTEIN 7.2 g/dL (6.4-8.2); eGFR NON BLACK RACES > 60 (>60)
[2018-05-02] MEDS: ZOSYN VIAL 3.375 GRAMS 3.375 G in NS 100 ML IV + SPIKE MINIBAG* 100 ML IV SCH ×2 (18:48→21:06)
[2018-05-02] MEDS: NS 1000 ML 1,000 ML IV SCH (18:48)
[2018-05-02] MEDS: TORADOL 30 MG VIAL IVP PRN (18:49)
[2018-05-02 22:58] VITALS: BMI 26.5
[2018-05-03] MEDS: TORADOL 30 MG VIAL IVP PRN (00:18)
[2018-05-03 05:28] LABS: ALANINE AMINOTRANSFERASE 33 Units/L (12-78); ALBUMIN 2.1 g/dL (3.4-5.0); ALKALINE PHOSPHATASE 88 Units/L (46-116); ASPARTATE AMINO TRANSFERASE 18 Units/L (15-37); BLOOD UREA NITROGEN 13 mg/dL (7-18); CALCIUM 7.9 mg/dL (8.5-10.1); CARBON DIOXIDE 27.6 mmol/L (21-32); CHLORIDE 105 mmol/L (98-107); COR CA(FOR HYPOALB) 9.4 mg/dL (8.5-10.1); CREATININE 0.52 mg/dL (0.55-1.02); SODIUM 137 mmol/L (136-145); TOTAL PROTEIN 5.6 g/dL (6.4-8.2); eGFR NON BLACK RACES > 60 (>60)
[2018-05-03] MEDS: ZOSYN VIAL 3.375 GRAMS 3.375 G in NS 100 ML IV + SPIKE MINIBAG* 100 ML IV SCH ×3 (05:31→21:26)
[2018-05-03 05:33] LABS: BASOPHILS # (AUTO) 0.1 X10^3/uL (0.0-0.1); BASOPHILS % (AUTO) 1.1 % (0.2-1.0); EOSINOPHILS # (AUTO) 0.2 x10^3/uL (0.0-0.2); EOSINOPHILS % (AUTO) 4.3 % (0.9-2.9); HEMATOCRIT 26.7 % (36.0-47.0); LYMPHOCYTES # (AUTO) 2.3 X10^3/uL (1.3-2.9); LYMPHOCYTES % (AUTO) 39.8 % (21.0-51.0); MEAN CORPUSCULAR HEMOGLOBIN 32.3 pg (27.0-34.0); MEAN CORPUSCULAR HGB CONC 33.8 g/dL (33.0-35.0); MEAN CORPUSCULAR VOLUME 95.6 fL (80.0-100.0); MEAN PLATELET VOLUME 8.3 fL (7.4-11.0); MONOCYTES # (AUTO) 0.5 x10^3/uL (0.3-0.8); MONOCYTES % (AUTO) 8.6 % (0.0-13.0); NEUTROPHILS # (AUTO) 2.6 x10^3/uL (2.2-4.8); NEUTROPHILS % (AUTO) 46.2 % (42.0-75.0); PLATELET COUNT 296 X10^3/uL (150.0-450.0); RED BLOOD COUNT 2.79 X10^6/uL (3.5-5.4); RED CELL DISTRIBUTION WIDTH 15.8 % (11.6-16.5); WHITE BLOOD COUNT 5.7 X10^3/uL (3.6-10.0)
[2018-05-03] MEDS ORDERED: HYDROGEN PEROXIDE 3% ONE (08:47)
[2018-05-03] MEDS ORDERED: STERILE WATER IRRIGATION IR ONE (08:55)
[2018-05-03] MEDS: NS 1000 ML 1,000 ML IV SCH ×3 (09:36→20:14)
[2018-05-03] MEDS ORDERED: TORADOL 30 MG VIAL IVP PRN (13:56)
[2018-05-03] MEDS ORDERED: DILAUDID INJ IVP PRN (13:57)
[2018-05-03] MEDS ORDERED: TYLENOL 325 MG TAB PO PRN (14:14)
[2018-05-03] MEDS ORDERED: PATIENT'S HOME MEDICATION (Ferrous Sulfate [Ferrous Sulfate] 325 MG) PO SCH (14:15)
[2018-05-03] MEDS ORDERED: HumuLIN R SUBCUT PRN (14:17)
[2018-05-03] MEDS ORDERED: GLIPIZIDE 5 MG PO SCH (14:30)
[2018-05-03] MEDS ORDERED: GLUCOPHAGE ONE (15:21)
[2018-05-03] MEDS: DULOXETINE PO SCH (15:26)
[2018-05-03] MEDS: COLACE CAP 100 MG PO SCH (15:37)
[2018-05-03] MEDS: NEURONTIN CAP 300 MG PO SCH ×2 (15:37→21:25)
[2018-05-03] MEDS: ZYLOPRIM PO SCH (15:37)
[2018-05-03] MEDS: PROTONIX TAB 40 MG PO SCH (15:37)
[2018-05-03] MEDS: GLUCOPHAGE PO SCH (15:38)
[2018-05-03] MEDS: NORVASC TAB 10 MG PO SCH ×2 (15:39→18:45)
[2018-05-03] MEDS: TAB-A-VITE PO SCH (15:39)
[2018-05-03] MEDS ORDERED: NEOSPORIN OINT ONE (15:52)
[2018-05-03] MEDS ORDERED: NEOSPORIN OINT TOP ONE (16:00)
[2018-05-03] MEDS ORDERED: SACCHAROMYCES BOULARDII PO SCH (21:00)
[2018-05-03] MEDS: SNACK - Diabetic Appropriate PO SCH (21:25)
[2018-05-03] MEDS ORDERED: POTASSIUM CHLORIDE LIQ 20 MEQ UDC PO PRN (21:25)
[2018-05-03] MEDS ORDERED: K-RIDER 10 MEQ/NS 100 ML 10 MEQ/100 ML BAG IV PRN (21:25)
[2018-05-03] MEDS: SINGULAIR TAB 10 MG PO SCH (21:25)
[2018-05-03] MEDS: ACCUPRIL PO SCH (21:25)
[2018-05-03] MEDS ORDERED: POTASSIUM CHL 40 MEQ/NS 0.45% 500 ML IV PRN (21:25)
[2018-05-03] MEDS ORDERED: K-DUR TAB 20 MEQ PO PRN (21:25)
[2018-05-03] MEDS ORDERED: MICRO K EXTEN CAP 10 MEQ PO PRN (21:25)
[2018-05-03] MEDS: ZOCOR TAB 20 MG PO SCH (21:25)
[2018-05-03] MEDS ORDERED: POTASSIUM CHL 60 MEQ/NS 0.45% 500 ML IV PRN (21:25)
[2018-05-03] MEDS ORDERED: KLOR-CON PO PRN (21:25)
[2018-05-03] MEDS: NORCO 7.5/325 MG TAB PO PRN (21:27)
[2018-05-03] MEDS: MAGNESIUM SULFATE 1 GRAM/100 mL PREMIX 1 GM/100 ML BAG IV PRN ×2 (22:10→23:35)
[2018-05-04 05:16] LABS: BASOPHILS # (AUTO) 0.1 X10^3/uL (0.0-0.1); EOSINOPHILS # (AUTO) 0.4 x10^3/uL (0.0-0.2); EOSINOPHILS % (AUTO) 7.1 % (0.9-2.9); HEMOGLOBIN 9.3 g/dL (12.0-16.0); LYMPHOCYTES # (AUTO) 2.4 X10^3/uL (1.3-2.9); LYMPHOCYTES % (AUTO) 43.5 % (21.0-51.0); MEAN CORPUSCULAR HEMOGLOBIN 31.8 pg (27.0-34.0); MEAN CORPUSCULAR HGB CONC 33.2 g/dL (33.0-35.0); MEAN CORPUSCULAR VOLUME 95.8 fL (80.0-100.0); MEAN PLATELET VOLUME 8.4 fL (7.4-11.0); MONOCYTES # (AUTO) 0.5 x10^3/uL (0.3-0.8); MONOCYTES % (AUTO) 9.1 % (0.0-13.0); NEUTROPHILS # (AUTO) 2.2 x10^3/uL (2.2-4.8); NEUTROPHILS % (AUTO) 39.3 % (42.0-75.0); PLATELET COUNT 302 X10^3/uL (150.0-450.0); RED BLOOD COUNT 2.92 X10^6/uL (3.5-5.4); RED CELL DISTRIBUTION WIDTH 15.6 % (11.6-16.5); WHITE BLOOD COUNT 5.6 X10^3/uL (3.6-10.0)
[2018-05-04 05:27] LABS: ALANINE AMINOTRANSFERASE 28 Units/L (12-78); ALBUMIN 2.2 g/dL (3.4-5.0); ALKALINE PHOSPHATASE 91 Units/L (46-116); ASPARTATE AMINO TRANSFERASE 18 Units/L (15-37); BLOOD UREA NITROGEN 7 mg/dL (7-18); CALCIUM 7.9 mg/dL (8.5-10.1); CARBON DIOXIDE 22.7 mmol/L (21-32); CHLORIDE 106 mmol/L (98-107); COR CA(FOR HYPOALB) 9.3 mg/dL (8.5-10.1); MAGNESIUM 2.5 mg/dL (1.7-2.9); SODIUM 139 mmol/L (136-145); TOTAL PROTEIN 5.9 g/dL (6.4-8.2); eGFR NON BLACK RACES > 60 (>60)
[2018-05-04] MEDS: NEURONTIN CAP 300 MG PO SCH ×3 (05:29→21:17)
[2018-05-04] MEDS: ZOSYN VIAL 3.375 GRAMS 3.375 G in NS 100 ML IV + SPIKE MINIBAG* 100 ML IV SCH ×3 (05:30→21:17)
--- NOTE | 2018-05-04 08:02 | DR.UPDATE ---
H&P Update History and Physical Update: WAS SEEN IN THE OFFICE ON 05/02/18. SHE WAS ADMITTED FOR FURTHER EVALUATION AND TREATMENT OF LLE CELLULITIS AND WOUND. WE PLANNED TO CONSULT FOR POSSIBLE DEBRIDEMENT. A H&P WAS COMPLETED PRIOR TO ADMISSION. PATIENT HAS BEEN SEEN AND EXAMINED WITH NO CHANGES NOTED TO H&P. Changes noted: NO Yes with the following:
[2018-05-04] MEDS: ACCUPRIL PO SCH ×2 (09:55→21:17)
[2018-05-04] MEDS: FERROUS GLUCONATE PO SCH (09:55)
[2018-05-04] MEDS: QUESTRAN POWDER FOR ORAL SUSP PO SCH (09:55)
[2018-05-04] MEDS: VSL#3 PO SCH (09:55)
[2018-05-04] MEDS: NORVASC TAB 10 MG PO SCH (09:55)
[2018-05-04] MEDS: COLACE CAP 100 MG PO SCH (09:55)
[2018-05-04] MEDS: TAB-A-VITE PO SCH (09:55)
[2018-05-04] MEDS: ZYLOPRIM PO SCH (09:55)
[2018-05-04] MEDS: GLUCOPHAGE PO SCH (09:55)
[2018-05-04] MEDS: PROTONIX TAB 40 MG PO SCH (09:55)
[2018-05-04] MEDS ORDERED: GLUCOPHAGE ONE (10:00)
[2018-05-04] MEDS: GLUCOTROL PO SCH (10:14)
--- NOTE | 2018-05-04 10:14 | PCM.PROG ---
Progress Note - Progress Note for Day of Date of Exam: 05/03/18 - Subjective Subjective: WAS ADMITTED FOR LEFT LOWER EXTREMITY CELLULITIS AND A WOUND FOLLOWING A FALL OVER THE WEEKEND. WOUND WAS SUTURED IN THE ER. THERE ARE ALSO MULTIPLE ABRASION AND SKIN TEARS NOTED TO LEG. TODAY, SHE IS ALERT AND ORIENTED, LYING IN BED ON MORNING ROUNDS. FAMILY IS AT BEDSIDE. SHE COMPLAINS OF LEFT LEG PAIN. ON EXAMINATION, HEART IS REGULAR IN RATE AND RHYTHM. BILATERAL LUNGS ARE NOTED WITH DIMINISHED LUNG SOUNDS THROUGHOUT. ABDOMEN IS ROUND, SOFT, AND NON-TENDER WITH NORMAL BOWEL SOUNDS NOTED IN ALL QUADRANTS. LEFT LOWER EXTREMITY IS NOTED WITH ERYTHEMA, MULTIPLE ABRASIONS, AND SCATTERED BRUISING. HER VITALS THIS MORNING ARE 98.8-86-18-97%-133/63. LABS WERE OBTAINED. ABNORMAL LAB VALUES INCLUDE THE FOLLOWING: RBC 2.79, HGB 9.0, HCT 26.7, CREATININE 0.52, CALCIUM 7.9, TOTAL PROTEIN 5.6, ALBUMIN 2.1. WOUND AND BLOOD CULTURES PENDING. WE CONSULTED FOR POSSIBLE DEBRIDEMENT OF WOUND. HE WILL SEE HER THIS MORNING. SHE IS CURRENTLY RECEIVING IV ZOSYN. WE WILL CONTINUE WITH CURRENT PLAN OF CARE TODAY. OTHERWISE, WE WILL FOLLOW UP WITH AM LABS AND CONTINUE TO MONITOR PATIENT. - Past Medical Family Social History Past Med/Fam/Surg Hx: No changes since H&P Allergies: Allergies aspirin Allergy (Verified 01/27/17 11:32) fluconazole [From Diflucan] Allergy (Verified 01/27/17 11:08) rofecoxib [From Vioxx] Allergy (Verified 01/27/17 11:08) tizanidine [From Zanaflex] Allergy (Verified 01/27/17 11:08) - Review of Systems ROS: No change since H&P - Vital Signs and I&O's Vital Signs: Temperature 97.6 F Pulse Rate [Left Radial] 79 Respiratory Rate 16 Blood Pressure [Right Calf] 136/67 Blood Pressure [Left Calf] 155/63 Blood Pressure [Left Arm] 130/65 Blood Pressure [Right Arm] 139/60 Blood Pressure 138/64 O2 Sat by Pulse Oximetry 96 Intake and Output: Intake & Output 05/01/18 05/02/18 05/03/18 05/04/18 11:59 11:59 11:59 11:59 Intake Total 1280 / 1280 2725 / 2725 Balance 1280 / 1280 2725 / 2725 - Physical Exam Oriented: Normal Eyes: Normal Ear: Normal Nose: Normal Throat: Normal Respiratory: Diminished Cardiovascular: Normal. negative: S3, S4, Murmur : Normal Auscultation: Bowel Sounds: Normal Palpation: Normal Tenderness: Normal Skin: Red (LEFT LOWER EXTREMITY), Tender, Wound, Bruising Musculoskeletal: Normal Psychiatric: Normal Mood Description: Calm Affect: Normal Speech Pattern: Clear, Appropriate - Laboratory and Diagnostics Result Diagrams: 05/04/18 04:06 05/04/18 04:06 Labs: 05/02/18 21:58 Leg - Left Gram Stain - Final 05/02/18 21:58 Leg - Left Wound Culture - Preliminary Laboratory WBC 5.6 X10^3/uL (3.6-10.0) 05/04/18 04:06 RBC 2.92 X10^6/uL (3.5-5.4) L 05/04/18 04:06 Hgb 9.3 g/dL (12.0-16.0) L 05/04/18 04:06 Hct 28.0 % (36.0-47.0) L 05/04/18 04:06 MCV 95.8 fL (80.0-100.0) 05/04/18 04:06 MCH 31.8 pg (27.0-34.0) 05/04/18 04:06 MCHC 33.2 g/dL (33.0-35.0) 05/04/18 04:06 RDW 15.6 % (11.6-16.5) 05/04/18 04:06 Plt Count 302 X10^3/uL (150.0-450.0) 05/04/18 04:06 MPV 8.4 fL (7.4-11.0) 05/04/18 04:06 Neut % (Auto) 39.3 % (42.0-75.0) L 05/04/18 04:06 Lymph % (Auto) 43.5 % (21.0-51.0) 05/04/18 04:06 [place] % (Auto) 9.1 % (0.0-13.0) 05/04/18 04:06 Eos % (Auto) 7.1 % (0.9-2.9) H 05/04/18 04:06 Baso % (Auto) 1.0 % (0.2-1.0) 05/04/18 04:06 Neut # (Auto) 2.2 x10^3/uL (2.2-4.8) 05/04/18 04:06 Lymph # (Auto) 2.4 X10^3/uL (1.3-2.9) 05/04/18 04:06 [place] # (Auto) 0.5 x10^3/uL (0.3-0.8) 05/04/18 04:06 Eos # (Auto) 0.4 x10^3/uL (0.0-0.2) H 05/04/18 04:06 Baso # (Auto) 0.1 X10^3/uL (0.0-0.1) 05/04/18 04:06 Absolute Nucleated RBC 0.1 /100WBC 05/04/18 04:06 Sodium 139 mmol/L (136-145) 05/04/18 04:06 Corrected Sodium TNP 05/04/18 04:06 Potassium 4.3 mmol/L (3.5-5.1) 05/04/18 04:06 Chloride 106 mmol/L (98-107) 05/04/18 04:06 Carbon Dioxide 22.7 mmol/L (21-32) 05/04/18 04:06 BUN 7 mg/dL (7-18) 05/04/18 04:06 Creatinine 0.50 mg/dL (0.55-1.02) L 05/04/18 04:06 Est GFR (MDRD) Af Amer > 60 (>60) 05/04/18 04:06 Est GFR (MDRD) Non-Af > 60 (>60) 05/04/18 04:06 Glucose 100 mg/dL (65-99) H 05/04/18 04:06 POC Glucose (mg/dL) 91 mg/dL (65-99) 05/04/18 05:32 Calcium 7.9 mg/dL (8.5-10.1) L 05/04/18 04:06 Corrected Calcium 9.3 mg/dL (8.5-10.1) 05/04/18 04:06 Magnesium 2.5 mg/dL (1.7-2.9) 05/04/18 04:06 Total Bilirubin 0.20 mg/dL (0.2-1.0) 05/04/18 04:06 AST 18 Units/L (15-37) 05/04/18 04:06 ALT 28 Units/L (12-78) 05/04/18 04:06 Alkaline Phosphatase 91 Units/L (46-116) 05/04/18 04:06 Total Protein 5.9 g/dL (6.4-8.2) L 05/04/18 04:06 Albumin 2.2 g/dL (3.4-5.0) L 05/04/18 04:06 Globulin 3.7 g/dL (2.5-4.5) 05/04/18 04:06 Albumin/Globulin Ratio 0.6 Ratio (1.1-2.1) L 05/04/18 04:06 - Plan (1) Lower extremity cellulitis Status: Acute Qualifiers: Laterality: left Qualified Code(s): L03.116 - Cellulitis of left lower limb Plan: IV ANTIBIOTICS, WOUND CARE, CONTINUE TO MONITOR (2) Laceration of leg, left Status: Acute Qualifiers: Encounter type: subsequent encounter Qualified Code(s): S81.812D - Laceration without foreign body, left lower leg, subsequent encounter Plan: IV ANTIBIOTICS, WOUND CARE, DEBRIDEMENT TODAY, CONTINUE TO MONITOR
[2018-05-04] MEDS: DULOXETINE PO SCH (11:00)
[2018-05-04] MEDS: NS 1000 ML 1,000 ML IV SCH (12:15)
[2018-05-04] MEDS: NEOSPORIN OINT TOP SCH (12:45)
[2018-05-04] MEDS: NORCO 7.5/325 MG TAB PO PRN (15:41)
--- NOTE | 2018-05-04 19:56 | PCM.PROG ---
Progress Note - Progress Note for Day of Date of Exam: 05/04/18 - Subjective Subjective: WAS ADMITTED FOR LEFT LOWER EXTREMITY CELLULITIS AND A WOUND FOLLOWING A FALL OVER THE WEEKEND. WOUND WAS DEBRIDED BY YESTERDAY. TODAY, SHE IS ALERT AND ORIENTED, LYING IN BED ON MORNING ROUNDS. FAMILY IS AT BEDSIDE. SHE COMPLAINS OF LEFT LEG PAIN. ON EXAMINATION, HEART IS REGULAR IN RATE AND RHYTHM. BILATERAL LUNGS ARE NOTED WITH DIMINISHED LUNG SOUNDS THROUGHOUT. ABDOMEN IS ROUND, SOFT, AND NON-TENDER WITH NORMAL BOWEL SOUNDS NOTED IN ALL QUADRANTS. LEFT LOWER EXTREMITY IS NOTED WITH ERYTHEMA, MULTIPLE ABRASIONS, AND SCATTERED BRUISING. HER VITALS THIS MORNING ARE 97.8-81-18-99%-135/65. LABS WERE OBTAINED. ABNORMAL LAB VALUES INCLUDE THE FOLLOWING: RBC 2.92, HGB 9.3, HCT 28.0, CREATININE 0.50, GLUCOSE 100, CALCIUM 7.9, TOTAL PROTEIN 5.9, ALBUMIN 2.2. WOUND AND BLOOD CULTURES PENDING.. SHE IS CURRENTLY RECEIVING IV ZOSYN. WE WILL CONTINUE WITH CURRENT PLAN OF CARE TODAY. OTHERWISE, WE WILL FOLLOW UP WITH AM LABS AND CONTINUE TO MONITOR PATIENT. - Past Medical Family Social History Past Med/Fam/Surg Hx: No changes since H&P Allergies: Allergies aspirin Allergy (Verified 01/27/17 11:32) fluconazole [From Diflucan] Allergy (Verified 01/27/17 11:08) rofecoxib [From Vioxx] Allergy (Verified 01/27/17 11:08) tizanidine [From Zanaflex] Allergy (Verified 01/27/17 11:08) - Review of Systems ROS: No change since H&P - Vital Signs and I&O's Vital Signs: Temperature 98.5 F Pulse Rate [Left Radial] 94 Respiratory Rate 20 Blood Pressure [Right Calf] 136/67 Blood Pressure [Left Calf] 155/63 Blood Pressure [Left Arm] 130/65 Blood Pressure [Right Arm] 132/63 Blood Pressure 138/64 O2 Sat by Pulse Oximetry 95 Intake and Output: Intake & Output 05/02/18 05/03/18 05/04/18 05/05/18 11:59 11:59 11:59 11:59 Intake Total 1280 / 1280 2725 / 2725 580 / 580 Balance 1280 / 1280 2725 / 2725 580 / 580 - Physical Exam Oriented: Normal Eyes: Normal Ear: Normal Nose: Normal Throat: Normal Respiratory: Diminished Cardiovascular: Normal. negative: S3, S4, Murmur : Normal Auscultation: Bowel Sounds: Normal Tenderness: Normal Skin: Red (LEFT LOWER EXTREMITY), Tender, Wound, Bruising Musculoskeletal: Normal Psychiatric: Normal Mood Description: Calm Affect: Normal Speech Pattern: Clear, Appropriate - Laboratory and Diagnostics Result Diagrams: 05/04/18 04:06 05/04/18 04:06 Labs: 05/02/18 18:10 Blood Blood Culture - Preliminary 05/02/18 18:06 Blood Blood Culture - Preliminary 05/02/18 21:58 Leg - Left Gram Stain - Final 05/02/18 21:58 Leg - Left Wound Culture - Preliminary Laboratory WBC 5.6 X10^3/uL (3.6-10.0) 05/04/18 04:06 RBC 2.92 X10^6/uL (3.5-5.4) L 05/04/18 04:06 Hgb 9.3 g/dL (12.0-16.0) L 05/04/18 04:06 Hct 28.0 % (36.0-47.0) L 05/04/18 04:06 MCV 95.8 fL (80.0-100.0) 05/04/18 04:06 MCH 31.8 pg (27.0-34.0) 05/04/18 04:06 MCHC 33.2 g/dL (33.0-35.0) 05/04/18 04:06 RDW 15.6 % (11.6-16.5) 05/04/18 04:06 Plt Count 302 X10^3/uL (150.0-450.0) 05/04/18 04:06 MPV 8.4 fL (7.4-11.0) 05/04/18 04:06 Neut % (Auto) 39.3 % (42.0-75.0) L 05/04/18 04:06 Lymph % (Auto) 43.5 % (21.0-51.0) 05/04/18 04:06 [place] % (Auto) 9.1 % (0.0-13.0) 05/04/18 04:06 Eos % (Auto) 7.1 % (0.9-2.9) H 05/04/18 04:06 Baso % (Auto) 1.0 % (0.2-1.0) 05/04/18 04:06 Neut # (Auto) 2.2 x10^3/uL (2.2-4.8) 05/04/18 04:06 Lymph # (Auto) 2.4 X10^3/uL (1.3-2.9) 05/04/18 04:06 [place] # (Auto) 0.5 x10^3/uL (0.3-0.8) 05/04/18 04:06 Eos # (Auto) 0.4 x10^3/uL (0.0-0.2) H 05/04/18 04:06 Baso # (Auto) 0.1 X10^3/uL (0.0-0.1) 05/04/18 04:06 Absolute Nucleated RBC 0.1 /100WBC 05/04/18 04:06 Sodium 139 mmol/L (136-145) 05/04/18 04:06 Corrected Sodium TNP 05/04/18 04:06 Potassium 4.3 mmol/L (3.5-5.1) 05/04/18 04:06 Chloride 106 mmol/L (98-107) 05/04/18 04:06 Carbon Dioxide 22.7 mmol/L (21-32) 05/04/18 04:06 BUN 7 mg/dL (7-18) 05/04/18 04:06 Creatinine 0.50 mg/dL (0.55-1.02) L 05/04/18 04:06 Est GFR (MDRD) Af Amer > 60 (>60) 05/04/18 04:06 Est GFR (MDRD) Non-Af > 60 (>60) 05/04/18 04:06 Glucose 100 mg/dL (65-99) H 05/04/18 04:06 POC Glucose (mg/dL) 112 mg/dL (65-99) H 05/04/18 16:17 Calcium 7.9 mg/dL (8.5-10.1) L 05/04/18 04:06 Corrected Calcium 9.3 mg/dL (8.5-10.1) 05/04/18 04:06 Magnesium 2.5 mg/dL (1.7-2.9) 05/04/18 04:06 Total Bilirubin 0.20 mg/dL (0.2-1.0) 05/04/18 04:06 AST 18 Units/L (15-37) 05/04/18 04:06 ALT 28 Units/L (12-78) 05/04/18 04:06 Alkaline Phosphatase 91 Units/L (46-116) 05/04/18 04:06 Total Protein 5.9 g/dL (6.4-8.2) L 05/04/18 04:06 Albumin 2.2 g/dL (3.4-5.0) L 05/04/18 04:06 Globulin 3.7 g/dL (2.5-4.5) 05/04/18 04:06 Albumin/Globulin Ratio 0.6 Ratio (1.1-2.1) L 05/04/18 04:06 - Plan (1) Lower extremity cellulitis Status: Acute Qualifiers: Laterality: left Qualified Code(s): L03.116 - Cellulitis of left lower limb Plan: IV ANTIBIOTICS, WOUND CARE, CONTINUE TO MONITOR (2) Laceration of leg, left Status: Acute Qualifiers: Encounter type: subsequent encounter Qualified Code(s): S81.812D - Laceration without foreign body, left lower leg, subsequent encounter Plan: IV ANTIBIOTICS, WOUND CARE, DEBRIDEMENT TODAY, CONTINUE TO MONITOR
[2018-05-04] MEDS: SNACK - Diabetic Appropriate PO SCH (20:30)
[2018-05-04] MEDS: ZOCOR TAB 20 MG PO SCH (21:17)
[2018-05-04] MEDS: SINGULAIR TAB 10 MG PO SCH (21:17)
[2018-05-05] MEDS: NEURONTIN CAP 300 MG PO SCH ×3 (05:32→21:17)
[2018-05-05 05:33] LABS: BASOPHILS # (AUTO) 0.1 X10^3/uL (0.0-0.1); BASOPHILS % (AUTO) 0.9 % (0.2-1.0); EOSINOPHILS # (AUTO) 0.4 x10^3/uL (0.0-0.2); EOSINOPHILS % (AUTO) 5.9 % (0.9-2.9); HEMATOCRIT 28.2 % (36.0-47.0); HEMOGLOBIN 9.6 g/dL (12.0-16.0); LYMPHOCYTES # (AUTO) 2.4 X10^3/uL (1.3-2.9); LYMPHOCYTES % (AUTO) 35.3 % (21.0-51.0); MEAN CORPUSCULAR HEMOGLOBIN 32.7 pg (27.0-34.0); MEAN CORPUSCULAR HGB CONC 34.2 g/dL (33.0-35.0); MEAN CORPUSCULAR VOLUME 95.5 fL (80.0-100.0); MEAN PLATELET VOLUME 8.3 fL (7.4-11.0); MONOCYTES # (AUTO) 0.6 x10^3/uL (0.3-0.8); MONOCYTES % (AUTO) 8.6 % (0.0-13.0); NEUTROPHILS # (AUTO) 3.4 x10^3/uL (2.2-4.8); NEUTROPHILS % (AUTO) 49.3 % (42.0-75.0); PLATELET COUNT 304 X10^3/uL (150.0-450.0); RED BLOOD COUNT 2.95 X10^6/uL (3.5-5.4); RED CELL DISTRIBUTION WIDTH 15.5 % (11.6-16.5); WHITE BLOOD COUNT 6.9 X10^3/uL (3.6-10.0)
[2018-05-05] MEDS: ZOSYN VIAL 3.375 GRAMS 3.375 G in NS 100 ML IV + SPIKE MINIBAG* 100 ML IV SCH ×3 (05:33→21:05)
[2018-05-05 05:44] LABS: ALANINE AMINOTRANSFERASE 26 Units/L (12-78); ALBUMIN 2.3 g/dL (3.4-5.0); ALKALINE PHOSPHATASE 93 Units/L (46-116); ASPARTATE AMINO TRANSFERASE 19 Units/L (15-37); BLOOD UREA NITROGEN 6 mg/dL (7-18); CALCIUM 8.1 mg/dL (8.5-10.1); CHLORIDE 105 mmol/L (98-107); COR CA(FOR HYPOALB) 9.5 mg/dL (8.5-10.1); CREATININE 0.53 mg/dL (0.55-1.02); SODIUM 139 mmol/L (136-145); TOTAL PROTEIN 6.1 g/dL (6.4-8.2); eGFR NON BLACK RACES > 60 (>60)
[2018-05-05] MEDS: GLUCOTROL PO SCH (06:08)
--- NOTE | 2018-05-05 07:44 | DR.PROGNOT ---
Hospital Progress Notes - Progress Note for Day of: Progress Note Date: 05/05/18 - Chief Complaint Chief Complaint: poor appetite . afebriole . WBC is normal . culture is negative . dressing was changed yesterday and a new wound vac was applied on both ulcers with a bridging . - Past Medical Family Social History Past Med/Fam/Surg Hx: No changes since H&P Allergies: Allergies aspirin Allergy (Verified 01/27/17 11:32) fluconazole [From Diflucan] Allergy (Verified 01/27/17 11:08) rofecoxib [From Vioxx] Allergy (Verified 01/27/17 11:08) tizanidine [From Zanaflex] Allergy (Verified 01/27/17 11:08) - Review Of Systems ROS: No change since H&P - Vital Signs Vital Signs: Temperature 98.1 F Pulse Rate [Left Radial] 85 Respiratory Rate 18 Blood Pressure [Right Calf] 136/67 Blood Pressure [Left Calf] 155/63 Blood Pressure [Left Arm] 156/73 Blood Pressure [Right Arm] 132/63 Blood Pressure 138/64 O2 Sat by Pulse Oximetry 98 - Physical Exam Oriented: Normal Eyes: Normal Ear: Normal Nose: Normal Throat: Normal Respiratory: Diminished Cardiovascular: Normal. negative: S3, S4, Murmur : Normal GI:Auscultation: Normal GI:Palpation: Normal GI: Tenderness: Normal Skin: Red (large stage 4 decubitus ulcer Rt gluteal area 14 x 6 x6 cm .. no necrosis or abscess formation with smaller one 2 x 2 cm next to it ), Tender, Wound, Bruising Musculoskeletal: Normal Psychiatric: Normal Mood Description: Calm Affect: Normal Speech Pattern: Clear, Appropriate - Laboratory and Diagnostics Result Diagrams: 05/05/18 04:08 05/05/18 04:08 Labs: 05/02/18 18:10 Blood Blood Culture - Preliminary 05/02/18 18:06 Blood Blood Culture - Preliminary 05/02/18 21:58 Leg - Left Gram Stain - Final 05/02/18 21:58 Leg - Left Wound Culture - Preliminary Laboratory WBC 6.9 X10^3/uL (3.6-10.0) 05/05/18 04:08 RBC 2.95 X10^6/uL (3.5-5.4) L 05/05/18 04:08 Hgb 9.6 g/dL (12.0-16.0) L 05/05/18 04:08 Hct 28.2 % (36.0-47.0) L 05/05/18 04:08 MCV 95.5 fL (80.0-100.0) 05/05/18 04:08 MCH 32.7 pg (27.0-34.0) 05/05/18 04:08 MCHC 34.2 g/dL (33.0-35.0) 05/05/18 04:08 RDW 15.5 % (11.6-16.5) 05/05/18 04:08 Plt Count 304 X10^3/uL (150.0-450.0) 05/05/18 04:08 MPV 8.3 fL (7.4-11.0) 05/05/18 04:08 Neut % (Auto) 49.3 % (42.0-75.0) 05/05/18 04:08 Lymph % (Auto) 35.3 % (21.0-51.0) 05/05/18 04:08 [place] % (Auto) 8.6 % (0.0-13.0) 05/05/18 04:08 Eos % (Auto) 5.9 % (0.9-2.9) H 05/05/18 04:08 Baso % (Auto) 0.9 % (0.2-1.0) 05/05/18 04:08 Neut # (Auto) 3.4 x10^3/uL (2.2-4.8) 05/05/18 04:08 Lymph # (Auto) 2.4 X10^3/uL (1.3-2.9) 05/05/18 04:08 [place] # (Auto) 0.6 x10^3/uL (0.3-0.8) 05/05/18 04:08 Eos # (Auto) 0.4 x10^3/uL (0.0-0.2) H 05/05/18 04:08 Baso # (Auto) 0.1 X10^3/uL (0.0-0.1) 05/05/18 04:08 Absolute Nucleated RBC 0.1 /100WBC 05/05/18 04:08 Sodium 139 mmol/L (136-145) 05/05/18 04:08 Corrected Sodium TNP 05/05/18 04:08 Potassium 4.4 mmol/L (3.5-5.1) 05/05/18 04:08 Chloride 105 mmol/L (98-107) 05/05/18 04:08 Carbon Dioxide 24.0 mmol/L (21-32) 05/05/18 04:08 BUN 6 mg/dL (7-18) L 05/05/18 04:08 Creatinine 0.53 mg/dL (0.55-1.02) L 05/05/18 04:08 Est GFR (MDRD) Af Amer > 60 (>60) 05/05/18 04:08 Est GFR (MDRD) Non-Af > 60 (>60) 05/05/18 04:08 Glucose 83 mg/dL (65-99) 05/05/18 04:08 POC Glucose (mg/dL) 84 mg/dL (65-99) 05/05/18 05:44 Calcium 8.1 mg/dL (8.5-10.1) L 05/05/18 04:08 Corrected Calcium 9.5 mg/dL (8.5-10.1) 05/05/18 04:08 Magnesium 2.5 mg/dL (1.7-2.9) 05/04/18 04:06 Total Bilirubin 0.30 mg/dL (0.2-1.0) 05/05/18 04:08 AST 19 Units/L (15-37) 05/05/18 04:08 ALT 26 Units/L (12-78) 05/05/18 04:08 Alkaline Phosphatase 93 Units/L (46-116) 05/05/18 04:08 Total Protein 6.1 g/dL (6.4-8.2) L 05/05/18 04:08 Albumin 2.3 g/dL (3.4-5.0) L 05/05/18 04:08 Globulin 3.8 g/dL (2.5-4.5) 05/05/18 04:08 Albumin/Globulin Ratio 0.6 Ratio (1.1-2.1) L 05/05/18 04:08 - Assessment and Plan 1: large Rt gluteal decubitus ulcers, stage 4 and 14 x 6 x 6 cm . keep wound v ac and change it twice a week . will follow as OP. - Problem Patient Problems: Patient Problems Lower extremity cellulitis (Acute) L03.119 Laceration of leg, left (Acute) S81.927M
[2018-05-05] MEDS ORDERED: GLUCOPHAGE ONE (08:30)
--- NOTE | 2018-05-05 08:39 | DR.PROGNOT ---
Hospital Progress Notes - Progress Note for Day of: Progress Note Date: 05/05/18 - Chief Complaint Chief Complaint: only mild drainage from leg wound. pain is less . culture is negative so far. - Past Medical Family Social History Past Med/Fam/Surg Hx: No changes since H&P Allergies: Allergies aspirin Allergy (Verified 01/27/17 11:32) fluconazole [From Diflucan] Allergy (Verified 01/27/17 11:08) rofecoxib [From Vioxx] Allergy (Verified 01/27/17 11:08) tizanidine [From Zanaflex] Allergy (Verified 01/27/17 11:08) - Review Of Systems ROS: No change since H&P - Vital Signs Vital Signs: Temperature 98.2 F Pulse Rate [Left Radial] 85 Respiratory Rate 18 Blood Pressure [Right Calf] 136/67 Blood Pressure [Left Calf] 155/63 Blood Pressure [Left Arm] 154/81 Blood Pressure [Right Arm] 132/63 Blood Pressure 138/64 O2 Sat by Pulse Oximetry 93 - Physical Exam Oriented: Normal Eyes: Normal Ear: Normal Nose: Normal Throat: Normal Respiratory: Diminished Cardiovascular: Normal. negative: S3, S4, Murmur : Normal GI:Auscultation: Normal GI:Palpation: Normal GI: Tenderness: Normal Skin: Tender (large area of denuded , friable and ecchymotic skin Lt leg with cellulitis .1 + distal edema ), Wound, Bruising Musculoskeletal: Normal Psychiatric: Normal Mood Description: Calm Affect: Normal Speech Pattern: Clear, Appropriate - Laboratory and Diagnostics Result Diagrams: 05/05/18 04:08 05/05/18 04:08 Labs: 05/02/18 18:10 Blood Blood Culture - Preliminary 05/02/18 18:06 Blood Blood Culture - Preliminary 05/02/18 21:58 Leg - Left Gram Stain - Final 05/02/18 21:58 Leg - Left Wound Culture - Preliminary Laboratory WBC 6.9 X10^3/uL (3.6-10.0) 05/05/18 04:08 RBC 2.95 X10^6/uL (3.5-5.4) L 05/05/18 04:08 Hgb 9.6 g/dL (12.0-16.0) L 05/05/18 04:08 Hct 28.2 % (36.0-47.0) L 05/05/18 04:08 MCV 95.5 fL (80.0-100.0) 05/05/18 04:08 MCH 32.7 pg (27.0-34.0) 05/05/18 04:08 MCHC 34.2 g/dL (33.0-35.0) 05/05/18 04:08 RDW 15.5 % (11.6-16.5) 05/05/18 04:08 Plt Count 304 X10^3/uL (150.0-450.0) 05/05/18 04:08 MPV 8.3 fL (7.4-11.0) 05/05/18 04:08 Neut % (Auto) 49.3 % (42.0-75.0) 05/05/18 04:08 Lymph % (Auto) 35.3 % (21.0-51.0) 05/05/18 04:08 [place] % (Auto) 8.6 % (0.0-13.0) 05/05/18 04:08 Eos % (Auto) 5.9 % (0.9-2.9) H 05/05/18 04:08 Baso % (Auto) 0.9 % (0.2-1.0) 05/05/18 04:08 Neut # (Auto) 3.4 x10^3/uL (2.2-4.8) 05/05/18 04:08 Lymph # (Auto) 2.4 X10^3/uL (1.3-2.9) 05/05/18 04:08 [place] # (Auto) 0.6 x10^3/uL (0.3-0.8) 05/05/18 04:08 Eos # (Auto) 0.4 x10^3/uL (0.0-0.2) H 05/05/18 04:08 Baso # (Auto) 0.1 X10^3/uL (0.0-0.1) 05/05/18 04:08 Absolute Nucleated RBC 0.1 /100WBC 05/05/18 04:08 Sodium 139 mmol/L (136-145) 05/05/18 04:08 Corrected Sodium TNP 05/05/18 04:08 Potassium 4.4 mmol/L (3.5-5.1) 05/05/18 04:08 Chloride 105 mmol/L (98-107) 05/05/18 04:08 Carbon Dioxide 24.0 mmol/L (21-32) 05/05/18 04:08 BUN 6 mg/dL (7-18) L 05/05/18 04:08 Creatinine 0.53 mg/dL (0.55-1.02) L 05/05/18 04:08 Est GFR (MDRD) Af Amer > 60 (>60) 05/05/18 04:08 Est GFR (MDRD) Non-Af > 60 (>60) 05/05/18 04:08 Glucose 83 mg/dL (65-99) 05/05/18 04:08 POC Glucose (mg/dL) 84 mg/dL (65-99) 05/05/18 05:44 Calcium 8.1 mg/dL (8.5-10.1) L 05/05/18 04:08 Corrected Calcium 9.5 mg/dL (8.5-10.1) 05/05/18 04:08 Magnesium 2.5 mg/dL (1.7-2.9) 05/04/18 04:06 Total Bilirubin 0.30 mg/dL (0.2-1.0) 05/05/18 04:08 AST 19 Units/L (15-37) 05/05/18 04:08 ALT 26 Units/L (12-78) 05/05/18 04:08 Alkaline Phosphatase 93 Units/L (46-116) 05/05/18 04:08 Total Protein 6.1 g/dL (6.4-8.2) L 05/05/18 04:08 Albumin 2.3 g/dL (3.4-5.0) L 05/05/18 04:08 Globulin 3.8 g/dL (2.5-4.5) 05/05/18 04:08 Albumin/Globulin Ratio 0.6 Ratio (1.1-2.1) L 05/05/18 04:08 - Assessment and Plan 1: recent trauma Lt leg . infected wounds Lt leg with cellulitis and skin abrasions. PVD . same local care and ATB . debridement as needed . - Problem Patient Problems: Patient Problems Lower extremity cellulitis (Acute) L03.119 Laceration of leg, left (Acute) S80.432O
[2018-05-05] MEDS: NEOSPORIN OINT TOP SCH (08:45)
[2018-05-05] MEDS: NS 1000 ML 1,000 ML IV SCH (08:45)
[2018-05-05] MEDS: TAB-A-VITE PO SCH (08:45)
[2018-05-05] MEDS: FERROUS GLUCONATE PO SCH (08:45)
[2018-05-05] MEDS: ACCUPRIL PO SCH ×2 (08:45→21:06)
[2018-05-05] MEDS: QUESTRAN POWDER FOR ORAL SUSP PO SCH (08:46)
[2018-05-05] MEDS: COLACE CAP 100 MG PO SCH (08:46)
[2018-05-05] MEDS: PROTONIX TAB 40 MG PO SCH (08:46)
[2018-05-05] MEDS: VSL#3 PO SCH (08:46)
[2018-05-05] MEDS: ZYLOPRIM PO SCH (08:46)
[2018-05-05] MEDS: GLUCOPHAGE PO SCH (08:47)
[2018-05-05] MEDS: DULOXETINE PO SCH (08:47)
[2018-05-05] MEDS: NORVASC TAB 10 MG PO SCH (08:47)
[2018-05-05] MEDS ORDERED: BUTT CREAM (COMPOUND) TOP PRN (09:48)
[2018-05-05] MEDS: SNACK - Diabetic Appropriate PO SCH (20:00)
[2018-05-05] MEDS: ZOCOR TAB 20 MG PO SCH (21:06)
[2018-05-05] MEDS: SINGULAIR TAB 10 MG PO SCH (21:17)
[2018-05-06 05:13] LABS: BASOPHILS # (AUTO) 0.1 X10^3/uL (0.0-0.1); BASOPHILS % (AUTO) 0.9 % (0.2-1.0); EOSINOPHILS # (AUTO) 0.3 x10^3/uL (0.0-0.2); EOSINOPHILS % (AUTO) 5.8 % (0.9-2.9); HEMATOCRIT 29.1 % (36.0-47.0); HEMOGLOBIN 9.7 g/dL (12.0-16.0); LYMPHOCYTES # (AUTO) 2.3 X10^3/uL (1.3-2.9); LYMPHOCYTES % (AUTO) 40.2 % (21.0-51.0); MEAN CORPUSCULAR HEMOGLOBIN 31.9 pg (27.0-34.0); MEAN CORPUSCULAR HGB CONC 33.4 g/dL (33.0-35.0); MEAN CORPUSCULAR VOLUME 95.4 fL (80.0-100.0); MONOCYTES # (AUTO) 0.5 x10^3/uL (0.3-0.8); MONOCYTES % (AUTO) 8.9 % (0.0-13.0); NEUTROPHILS # (AUTO) 2.5 x10^3/uL (2.2-4.8); NEUTROPHILS % (AUTO) 44.2 % (42.0-75.0); PLATELET COUNT 330 X10^3/uL (150.0-450.0); RED BLOOD COUNT 3.05 X10^6/uL (3.5-5.4); RED CELL DISTRIBUTION WIDTH 15.5 % (11.6-16.5); WHITE BLOOD COUNT 5.7 X10^3/uL (3.6-10.0)
[2018-05-06] MEDS: NS 1000 ML 1,000 ML IV SCH (05:28)
[2018-05-06] MEDS: NEURONTIN CAP 300 MG PO SCH (05:29)
[2018-05-06] MEDS: ZOSYN VIAL 3.375 GRAMS 3.375 G in NS 100 ML IV + SPIKE MINIBAG* 100 ML IV SCH (05:29)
[2018-05-06 05:38] LABS: ALANINE AMINOTRANSFERASE 26 Units/L (12-78); ALBUMIN 2.4 g/dL (3.4-5.0); ALKALINE PHOSPHATASE 91 Units/L (46-116); ASPARTATE AMINO TRANSFERASE 22 Units/L (15-37); BLOOD UREA NITROGEN 5 mg/dL (7-18); CALCIUM 8.1 mg/dL (8.5-10.1); CARBON DIOXIDE 23.3 mmol/L (21-32); CHLORIDE 104 mmol/L (98-107); COR CA(FOR HYPOALB) 9.4 mg/dL (8.5-10.1); SODIUM 138 mmol/L (136-145); TOTAL PROTEIN 6.1 g/dL (6.4-8.2); eGFR NON BLACK RACES > 60 (>60)
--- NOTE | 2018-05-06 08:43 | PCM.PROG ---
Progress Note - Progress Note for Day of Date of Exam: 05/05/18 - Subjective Subjective: WAS ADMITTED FOR LEFT LOWER EXTREMITY CELLULITIS AND A WOUND FOLLOWING A FALL OVER THE WEEKEND. WOUND WAS DEBRIDED BY YESTERDAY. TODAY, SHE IS ALERT AND ORIENTED, LYING IN BED ON MORNING ROUNDS. FAMILY IS AT BEDSIDE. SHE COMPLAINS OF LEFT LEG PAIN. ON EXAMINATION, HEART IS REGULAR IN RATE AND RHYTHM. BILATERAL LUNGS ARE NOTED WITH DIMINISHED LUNG SOUNDS THROUGHOUT. ABDOMEN IS ROUND, SOFT, AND NON-TENDER WITH NORMAL BOWEL SOUNDS NOTED IN ALL QUADRANTS. LEFT LOWER EXTREMITY IS NOTED WITH ERYTHEMA, MULTIPLE ABRASIONS, AND SCATTERED BRUISING. HER VITALS THIS MORNING ARE 97.8-81-18-99%-135/65. LABS WERE OBTAINED. ABNORMAL LAB VALUES INCLUDE THE FOLLOWING: RBC 2.92, HGB 9.3, HCT 28.0, CREATININE 0.50, GLUCOSE 100, CALCIUM 7.9, TOTAL PROTEIN 5.9, ALBUMIN 2.2. WOUND AND BLOOD CULTURES PENDING.. SHE IS CURRENTLY RECEIVING IV ZOSYN. WE WILL CONTINUE WITH CURRENT PLAN OF CARE TODAY. OTHERWISE, WE WILL FOLLOW UP WITH AM LABS AND CONTINUE TO MONITOR PATIENT. - Past Medical Family Social History Past Med/Fam/Surg Hx: No changes since H&P Allergies: Allergies aspirin Allergy (Verified 01/27/17 11:32) fluconazole [From Diflucan] Allergy (Verified 01/27/17 11:08) rofecoxib [From Vioxx] Allergy (Verified 01/27/17 11:08) tizanidine [From Zanaflex] Allergy (Verified 01/27/17 11:08) - Review of Systems ROS: No change since H&P - Vital Signs and I&O's Vital Signs: Temperature 98.6 F Pulse Rate [Left Radial] 86 Respiratory Rate 20 Blood Pressure [Right Calf] 136/67 Blood Pressure [Left Calf] 155/63 Blood Pressure [Left Arm] 129/60 Blood Pressure [Right Arm] 132/63 Blood Pressure 138/64 O2 Sat by Pulse Oximetry 94 Intake and Output: Intake & Output 05/03/18 05/04/18 05/05/18 05/06/18 11:59 11:59 11:59 11:59 Intake Total 1280 / 1280 2725 / 2725 1400 / 1400 2227 / 2227 Balance 1280 / 1280 2725 / 2725 1400 / 1400 222 / 2226 - Physical Exam Oriented: Normal Eyes: Normal Ear: Normal Nose: Normal Throat: Normal Respiratory: Diminished Cardiovascular: Normal. negative: S3, S4, Murmur : Normal Auscultation: Bowel Sounds: Normal Palpation: Normal Tenderness: Normal Skin: Tender (large area of denuded , friable and ecchymotic skin Lt leg with cellulitis .1 + distal edema ), Wound, Bruising Musculoskeletal: Normal Psychiatric: Normal Mood Description: Calm Affect: Normal Speech Pattern: Clear - Laboratory and Diagnostics Result Diagrams: 05/06/18 04:04 05/06/18 04:04 Labs: 05/02/18 21:58 Leg - Left Gram Stain - Final 05/02/18 21:58 Leg - Left Wound Culture - Preliminary 05/02/18 18:10 Blood Blood Culture - Preliminary 05/02/18 18:06 Blood Blood Culture - Preliminary Laboratory WBC 5.7 X10^3/uL (3.6-10.0) 05/06/18 04:04 RBC 3.05 X10^6/uL (3.5-5.4) L 05/06/18 04:04 Hgb 9.7 g/dL (12.0-16.0) L 05/06/18 04:04 Hct 29.1 % (36.0-47.0) L 05/06/18 04:04 MCV 95.4 fL (80.0-100.0) 05/06/18 04:04 MCH 31.9 pg (27.0-34.0) 05/06/18 04:04 MCHC 33.4 g/dL (33.0-35.0) 05/06/18 04:04 RDW 15.5 % (11.6-16.5) 05/06/18 04:04 Plt Count 330 X10^3/uL (150.0-450.0) 05/06/18 04:04 MPV 8.0 fL (7.4-11.0) 05/06/18 04:04 Neut % (Auto) 44.2 % (42.0-75.0) 05/06/18 04:04 Lymph % (Auto) 40.2 % (21.0-51.0) 05/06/18 04:04 [place] % (Auto) 8.9 % (0.0-13.0) 05/06/18 04:04 Eos % (Auto) 5.8 % (0.9-2.9) H 05/06/18 04:04 Baso % (Auto) 0.9 % (0.2-1.0) 05/06/18 04:04 Neut # (Auto) 2.5 x10^3/uL (2.2-4.8) 05/06/18 04:04 Lymph # (Auto) 2.3 X10^3/uL (1.3-2.9) 05/06/18 04:04 [place] # (Auto) 0.5 x10^3/uL (0.3-0.8) 05/06/18 04:04 Eos # (Auto) 0.3 x10^3/uL (0.0-0.2) H 05/06/18 04:04 Baso # (Auto) 0.1 X10^3/uL (0.0-0.1) 05/06/18 04:04 Absolute Nucleated RBC 0.0 /100WBC 05/06/18 04:04 Sodium 138 mmol/L (136-145) 05/06/18 04:04 Corrected Sodium TNP 05/06/18 04:04 Potassium 3.7 mmol/L (3.5-5.1) 05/06/18 04:04 Chloride 104 mmol/L (98-107) 05/06/18 04:04 Carbon Dioxide 23.3 mmol/L (21-32) 05/06/18 04:04 BUN 5 mg/dL (7-18) L 05/06/18 04:04 Creatinine 0.50 mg/dL (0.55-1.02) L 05/06/18 04:04 Est GFR (MDRD) Af Amer > 60 (>60) 05/06/18 04:04 Est GFR (MDRD) Non-Af > 60 (>60) 05/06/18 04:04 Glucose 85 mg/dL (65-99) 05/06/18 04:04 POC Glucose (mg/dL) 82 mg/dL (65-99) 05/06/18 05:10 Calcium 8.1 mg/dL (8.5-10.1) L 05/06/18 04:04 Corrected Calcium 9.4 mg/dL (8.5-10.1) 05/06/18 04:04 Magnesium 2.5 mg/dL (1.7-2.9) 05/04/18 04:06 Total Bilirubin 0.30 mg/dL (0.2-1.0) 05/06/18 04:04 AST 22 Units/L (15-37) 05/06/18 04:04 ALT 26 Units/L (12-78) 05/06/18 04:04 Alkaline Phosphatase 91 Units/L (46-116) 05/06/18 04:04 Total Protein 6.1 g/dL (6.4-8.2) L 05/06/18 04:04 Albumin 2.4 g/dL (3.4-5.0) L 05/06/18 04:04 Globulin 3.7 g/dL (2.5-4.5) 05/06/18 04:04 Albumin/Globulin Ratio 0.6 Ratio (1.1-2.1) L 05/06/18 04:04 - Plan (1) Lower extremity cellulitis Status: Acute Qualifiers: Laterality: left Qualified Code(s): L03.116 - Cellulitis of left lower limb Plan: IV ANTIBIOTICS, WOUND CARE, CONTINUE TO MONITOR (2) Laceration of leg, left Status: Acute Qualifiers: Encounter type: subsequent encounter Qualified Code(s): S81.812D - Laceration without foreign body, left lower leg, subsequent encounter Plan: IV ANTIBIOTICS, WOUND CARE, DEBRIDEMENT TODAY, CONTINUE TO MONITOR
[2018-05-06] MEDS: ACCUPRIL PO SCH (09:53)
[2018-05-06] MEDS: VSL#3 PO SCH (09:54)
[2018-05-06] MEDS: COLACE CAP 100 MG PO SCH (09:54)
[2018-05-06] MEDS: TAB-A-VITE PO SCH (09:54)
[2018-05-06] MEDS: PROTONIX TAB 40 MG PO SCH (09:54)
[2018-05-06] MEDS: ZYLOPRIM PO SCH (09:54)
[2018-05-06] MEDS: FERROUS GLUCONATE PO SCH (09:54)
[2018-05-06] MEDS: DULOXETINE PO SCH (09:55)
[2018-05-06] MEDS: QUESTRAN POWDER FOR ORAL SUSP PO SCH (09:55)
[2018-05-06] MEDS: NORVASC TAB 10 MG PO SCH (09:56)
[2018-05-06] MEDS: NEOSPORIN OINT TOP SCH (09:56)
[2018-05-06 12:31] VITALS: BP 132/61
--- NOTE | 2018-06-09 22:21 | DR.CARTERD ---
- Discharge Summary for: Discharge Summary for Date of:: 05/06/18 - Admission Date Date of Admission: 05/02/18 - Admission Diagnoses Admission Diagnosis: (1) Lower extremity cellulitis (2) Laceration of leg, left - Discharge Date Discharge Date: 05/06/18 - Discharge Diagnoses Discharge Diagnosis: (1) Lower extremity cellulitis (2) Laceration of leg, left - Hospital Course Hospital Course: DAY ONE, MS. WATERS WAS SEEN IN THE OFFICE ON 05/02/18. SHE WAS ADMITTED FOR FURTHER EVALUATION AND TREATMENT OF LLE CELLULITIS AND WOUND. WE PLANNED TO CONSULT FOR POSSIBLE DEBRIDEMENT. WE CONTINUED TO MONITOR AND TREAT. DAY TWO, WAS ADMITTED FOR LEFT LOWER EXTREMITY CELLULITIS AND A WOUND FOLLOWING A FALL OVER THE WEEKEND. WOUND WAS SUTURED IN THE ER. THERE WERE ALSO MULTIPLE ABRASION AND SKIN TEARS NOTED TO LEG. TODAY, SHE WAS ALERT AND ORIENTED, LYING IN BED ON MORNING ROUNDS. FAMILY WAS AT BEDSIDE. SHE COMPLAINED OF LEFT LEG PAIN. ON EXAMINATION, HEART WAS REGULAR IN RATE AND RHYTHM. BILATERAL LUNGS WERE NOTED WITH DIMINISHED LUNG SOUNDS THROUGHOUT. ABDOMEN WAS ROUND, SOFT, AND NON-TENDER WITH NORMAL BOWEL SOUNDS NOTED IN ALL QUADRANTS. LEFT LOWER EXTREMITY WAS NOTED WITH ERYTHEMA, MULTIPLE ABRASIONS, AND SCATTERED BRUISING. HER VITALS THIS MORNING WERE 98.8-86-18-97%-133/63. LABS WERE OBTAINED. ABNORMAL LAB VALUES INCLUDED THE FOLLOWING: RBC 2.79, HGB 9.0, HCT 26.7, CREATININE 0.52, CALCIUM 7.9, TOTAL PROTEIN 5.6, ALBUMIN 2.1. WOUND AND BLOOD CULTURES PENDING. WE CONSULTED FOR POSSIBLE DEBRIDEMENT OF WOUND. HE SAW HER THIS MORNING. SHE RECEIVED IV ZOSYN. WE CONTINUED WITH CURRENT PLAN OF CARE TODAY. WE FOLLOWED UP WITH AM LABS AND CONTINUED TO MONITOR PATIENT. DAY THREE, WOUND WAS DEBRIDED BY YESTERDAY. TODAY, SHE WAS ALERT AND ORIENTED, LYING IN BED ON MORNING ROUNDS. FAMILY WAS AT BEDSIDE. SHE COMPLAINED OF LEFT LEG PAIN. ON EXAMINATION, HEART WAS REGULAR IN RATE AND RHYTHM. BILATERAL LUNGS WERE NOTED WITH DIMINISHED LUNG SOUNDS THROUGHOUT. ABDOMEN WAS ROUND, SOFT, AND NON-TENDER WITH NORMAL BOWEL SOUNDS NOTED IN ALL QUADRANTS. LEFT LOWER EXTREMITY WAS NOTED WITH ERYTHEMA, MULTIPLE ABRASIONS, AND SCATTERED BRUISING. HER VITALS THIS MORNING WERE 97.8-81-18-99%-135/65. LABS WERE OBTAINED. ABNORMAL LAB VALUES INCLUDED THE FOLLOWING: RBC 2.92, HGB 9.3, HCT 28.0, CREATININE 0.50, GLUCOSE 100, CALCIUM 7.9, TOTAL PROTEIN 5.9, ALBUMIN 2.2. WOUND AND BLOOD CULTURES PENDING.. SHE RECEIVED IV ZOSYN. WE CONTINUED WITH CURRENT PLAN OF CARE TODAY. WE FOLLOWED UP WITH AM LABS AND CONTINUED TO MONITOR PATIENT. DAY FOUR, SHE WAS ALERT AND ORIENTED, LYING IN BED ON MORNING ROUNDS. FAMILY WAS AT BEDSIDE. SHE COMPLAINED OF LEFT LEG PAIN. ON EXAMINATION, HEART WAS REGULAR IN RATE AND RHYTHM. BILATERAL LUNGS WERE NOTED WITH DIMINISHED LUNG SOUNDS THROUGHOUT. ABDOMEN WAS ROUND, SOFT, AND NON-TENDER WITH NORMAL BOWEL SOUNDS NOTED IN ALL QUADRANTS. LEFT LOWER EXTREMITY WAS NOTED WITH ERYTHEMA, MULTIPLE ABRASIONS, AND SCATTERED BRUISING. HER VITALS THIS MORNING WERE 97.8-81-18-99%-135/65. LABS WERE OBTAINED. ABNORMAL LAB VALUES INCLUDED THE FOLLOWING: RBC 2.92, HGB 9.3, HCT 28.0, CREATININE 0.50, GLUCOSE 100, CALCIUM 7.9, TOTAL PROTEIN 5.9, ALBUMIN 2.2. WOUND AND BLOOD CULTURES PENDING.. SHE WAS RECEIVING IV ZOSYN. WE CONTINUED WITH CURRENT PLAN OF CARE. WE WILL FOLLOWED UP WITH AM LABS AND CONTINUED TO MONITOR PATIENT. DAY FIVE, PATIENT WAS LYING IN BED ALERT AND ORIENTED THIS MORNING. NO COMPLAINTS WERE VOICED THIS AM. REDNESS TO LEFT LOWER EXTREMITY HAS SIGNIFICANTLY IMPROVED. LABS WERE IN NORMAL RANGE FOR PATIENT. VITALS WERE STABLE. HOME HEALTH WAS SET UP BY CASE MANAGEMENT. WE PLANNED FOR DISCHARGE. INSTRUCTIONS FOR MEDICATIONS AND FOLLOW UP WERE DISCUSSED WITH PATIENT AND FAMILY, BOTH VOICED UNDERSTANDING. PATIENT WAS DISCHARGED HOME IN STABLE CONDITION WITH FAMILY. - Discharge Medications Discharge Medications: Home Medication List montelukast 10 mg PO HS 05/02/18 [History] multivitamin 1 tab PO DAILY 05/02/18 [History] sulfamethoxazole-trimethoprim [Bactrim DS] 1 tab PO BID #20 tab 05/06/18 [Rx] Prescriptions: sulfamethoxazole-trimethoprim [Bactrim DS] Suhail [facility]ona Ambulatory Orders Glipizide [Glipizide 5 mg] 5 mg PO DAILY 11/28/13 metformin 500 mg PO DAILY 11/28/13 quinapril 20 mg PO BID #60 tab 11/15/14 gabapentin 300 mg PO TID #90 capsule 01/29/17 Saccharomyces boulardii [Florastor] 1 cap PO BID 04/28/18 acetaminophen 2 tab PO Q4HR PRN 04/28/18 allopurinol 300 mg PO DAILY 04/28/18 amlodipine 10 mg PO DAILY 04/28/18 cholestyramine (with sugar) 1 pkg PO DAILY 04/28/18 docusate sodium 100 mg PO DAILY 04/28/18 duloxetine 1 cap PO DAILY 04/28/18 ferrous sulfate 325 mg PO DAILY 04/28/18 hydrocodone-acetaminophen 2 tab PO Q6H PRN 04/28/18 insulin regular human [Humulin R Regular U-100 Insuln] See Rx Instructions .ROUTE .COMPLEX 04/28/18 pantoprazole 40 mg PO DAILY 04/28/18 simvastatin 20 mg PO DAILYHS 04/28/18 - Discharge Disposition Discharge Disposition: PATIENT TO FOLLOW UP IN OUR OFFICE IN ONE WEEK. PATIENT TO FOLLOW UP WITH DR. MORA ON NEXT AVAILABLE APPOINTMENT TIME.
== END 2018-05-06 12:20 | disposition home health service (06) | DRG 570 ==
LOC: MED/SURG 17:13
PROVIDERS: ADMIT Internal Medicine; ATTEND Internal Medicine
DX: I10 Essential (primary) hypertension; E78.2 Mixed hyperlipidemia; R26.89 Other abnormalities of gait and mobility; E11.65 Type 2 diabetes mellitus with hyperglycemia; L89.894 Pressure ulcer of other site, stage 4; L03.116 Cellulitis of left lower limb; W18.39XA Other fall on same level, initial encounter; S81.812A Laceration without foreign body, left lower leg, initial encounter; M79.605 Pain in left leg
CPT/HCPCS: 36415; 80053; 83735; 85025; 87040; 87070; 87075; 87205; 97110; 97116; 97162; 97167; 97530; A4216; A4217; A4222; J1170; J1885; J2543; J3475; J7030; J7050

== ENCOUNTER 2021-10-08 06:45 | Inpatient (IN) ==
[2021-10-08 07:05] VITALS: BMI 24.8
[2021-10-08] MEDS ORDERED: NORCO 5/325 MG TAB PO ONE (07:05)
[2021-10-08] MEDS ORDERED: NORCO 5/325 MG TAB ONE (07:20)
[2021-10-08 07:41] LABS: BASOPHILS # (AUTO) 0.1 X10^3/uL (0.0-0.1); BASOPHILS % (AUTO) 1.3 % (0.2-1.0); EOSINOPHILS % (AUTO) 0.3 % (0.9-2.9); HEMATOCRIT 39.5 % (36.0-47.0); HEMOGLOBIN 13.4 g/dL (12.0-16.0); LYMPHOCYTES # (AUTO) 1.8 X10^3/uL (1.3-2.9); LYMPHOCYTES % (AUTO) 15.7 % (21.0-51.0); MEAN CORPUSCULAR HEMOGLOBIN 32.5 pg (27.0-34.0); MEAN CORPUSCULAR HGB CONC 33.9 g/dL (33.0-35.0); MEAN CORPUSCULAR VOLUME 95.9 fL (80.0-100.0); MEAN PLATELET VOLUME 8.7 fL (7.4-11.0); MONOCYTES # (AUTO) 0.6 x10^3/uL (0.3-0.8); MONOCYTES % (AUTO) 4.9 % (0.0-13.0); NEUTROPHILS # (AUTO) 8.7 x10^3/uL (2.2-4.8); NEUTROPHILS % (AUTO) 77.8 % (42.0-75.0); RED BLOOD COUNT 4.12 X10^6/uL (3.5-5.4); RED CELL DISTRIBUTION WIDTH 15.2 % (11.6-16.5)
[2021-10-08 07:45] LABS: ALANINE AMINOTRANSFERASE 25 Units/L (12-78); ALBUMIN 3.6 g/dL (3.4-5.0); ALKALINE PHOSPHATASE 133 Units/L (46-116); ASPARTATE AMINO TRANSFERASE 32 Units/L (15-37); BLOOD UREA NITROGEN 13 mg/dL (7-18); CALCIUM 9.4 mg/dL (8.5-10.1); CARBON DIOXIDE 26.3 mmol/L (21-32); CHLORIDE 100 mmol/L (98-107); CREATININE 0.63 mg/dL (0.55-1.02); SODIUM 137 mmol/L (136-145); TOTAL PROTEIN 7.4 g/dL (6.4-8.2); eGFR NON BLACK RACES > 60 (>60)
--- NOTE | 2021-10-08 07:45 | DR.EXTPAIN ---
HPI <Indy Jeffers - Last Filed: 10/08/21 07:54> Time seen Time Seen by Provider: 10/08/21 06:52 HPI Comment HPI Comment: Brought in by ems with info from daughter who says "she fell again this morning" and is now c/o pain in lt ankle, knee and hip as well as head where she opened a cut that was previously glued recently; daughter says pt has been weak, dizzy and off balance for weeks and she's expressed concern about her bp being too low; says dbp routinely runs in the 40s and she thinks her meds need to be adjusted; pt denies cp, sob, abd pain, n/v/d. <[facility] - Last Filed: 10/09/21 00:05> HPI Comment HPI Comment: 86 y/o female being seen in the ED this a.m. due to a fall this morning. Her who is present with her states that the pt. has been falling at home recently. SHe is s/p Lt. hip replacement surgery. She was endorsed over from the previous shift. PMH <Indy Jeffers - Last Filed: 10/08/21 07:54> PMH Past Medical History: Arthritis, Diabetes and Hypertension Past Surgical History: Yes Surgical History: Cholecystectomy, Hysterectomy, Joint Replacement and Ortho Surgery Family History Family Medical History: Diabetes Mellitus, Cancer and Hypertension Social History Do you use any recreational Drugs:: No ROS <Indy Jeffers - Last Filed: 10/08/21 07:54> Review of Systems Constitutional: No Symptoms Reported Eyes: No Symptoms Reported ENTM: No Symptoms Reported Respiratoy: No Symptoms Reported Cardiovascular: No Symptoms Reported Gastrointestinal/Abdominal: No Symptoms Reported Genitourinary: No Symptoms Reported Integumentary: No Symptoms Reported Hematologic/Lymphatic: No Symptoms Reported Endocrine: No Symptoms Reported Psychiatric: No Symptoms Reported PE <Indy Jeffers - Last Filed: 10/08/21 07:54> Vital Signs Vitals: Temperature 97.7 F Pulse Rate 88 Respiratory Rate 18 Blood Pressure [Right Calf] 136/67 Blood Pressure [Left Calf] 155/63 Blood Pressure [Left Arm] 132/61 Blood Pressure [Right Arm] 132/63 Blood Pressure 130/75 O2 Sat by Pulse Oximetry 96 General Limitations: Physical Limitation (in bed unable move) General Appearance: Alert and In No Apparent Distress Head Head Exam: Other (1-2 cm thin, linear superficial abrasion to lt posterior scalp, no bleeding) Eyes Eye exam: Normal Appearance ENT ENT Exam: Normal Exam Neck Neck Exam: Normal Inspection Chest Chest Inspection: Normal Inspection Respiratory Respiratory Exam: Normal Lung Sounds Bilat Cardiovascular Cardiovascular Exam: Regular Rate and Normal Rhythm Abdominal Exam Abdominal Exam: Normal Inspection, Normal Bowel Sounds and Soft Extremities Extremities Exam: Normal Inspection Lower Extremities Ankle Exam: Swelling (lt lateral malleolous swelling, tender, normal rom) Back Back Exam: Normal Inspection Neurological Neurological Exam: Alert, Oriented X3 and CN II-XII Intact Psychiatric Psychiatric Exam: Normal Affect and Normal Mood Skin Skin Exam: Warm, Dry and Other (bruising and tenderness to lt knee, no significant swelling) <[facility] Last Filed: 10/09/21 00:05> Vital Signs Vitals: Temperature 97.7 F Pulse Rate 88 Respiratory Rate 18 Blood Pressure [Right Calf] 136/67 Blood Pressure [Left Calf] 155/63 Blood Pressure [Left Arm] 132/61 Blood Pressure [Right Arm] 132/63 Blood Pressure 130/75 O2 Sat by Pulse Oximetry 96 <[facility] - Last Filed: 10/09/21 00:05> Treatment Treatment: Name: GRIS WATERS [facility]#: [id number]: [id number] : 1935Sex: FLocation: MED/SURG Order Number(s): [id number](s):KNEE COMPLETE, LEFT Ordering Physician: Indy Jeffers Primary Care: Suhail Gaona Service Date: 10/08/21 Service Time: 0750 HISTORY Pt c/o pain to left side of neck, left shoulder, left knee an left ankle s/p fall. Pt is aao x 4. Pulses palpable to bilateral feet. Pt fell at midnight and was found by family after 6 am. HTN, DM, ARTHRITIS SX: SUE HYST ORTHO STUDY KNEE COMPLETE, LEFT three-view COMPARISON None FINDINGS No evidence for acute cortical disruption or dislocation. Left total knee arthroplasty. No evidence of hardware fracture or loosening. No large knee joint effusion. IMPRESSION No acute fracture or hardware complication. Electronically signed by: JAZMYNE MONTEZ (Oct 08, 2021 14:07:23) Report Electronically signed: 10/08/21 1408 CC: Indy Jeffers Reevaluation 1st: Unchanged Consultation Consultation Comments: Name: GRIS WATERS#: [id number]: [id number] : 1935Sex: FLocation: ER Order Number(s): [id number](s):HIP, LEFT Ordering Physician: Indy Jeffers Primary Care: Suhail Gaona Service Date: 10/08/21 Service Time: 0750 HISTORY Pt c/o pain to left side of neck, left shoulder, left knee an left ankle s/p fall. Pt is aao x 4. Pulses palpable to bilateral feet. Pt fell at midnight and was found by family after 6 am. STUDY HIP, LEFT COMPARISON Left hip radiograph 08/25/2021. TECHNIQUE AP pelvis and lateral view left hip. FINDINGS Status post left hip arthroplasty. No radiographic hardware complication. Bones are osteopenic. There is mild irregularity suspicious for fracture at the left superior pubic ramus. Lucency at the left sacral ala may be due to bowel gas. IMPRESSION Mild irregularity suspicious for fracture at the left superior pubic ramus. Recommend CT to evaluate for other radiographically occult fractures. Electronically signed by: Yung Encarnacion (Oct 08, 2021 08:40:39) Report Electronically signed: 10/08/21 0878 CC: Indy Jeffers Education/Counseling Education/Counseling: Patient, Family, Education and Counseling Educated On: Treatment, Diagnosis, Prognosis and Needs for Follow Up ROR <Indy Jeffers - Last Filed: 10/08/21 07:54> Labs Reviewed Result Diagrams: 10/08/21 07:23 10/08/21 07:23 Laboratory: WBC 11.2 X10^3/uL (3.6-10.0) H 10/08/21 07:23 RBC 4.12 X10^6/uL (3.5-5.4) 10/08/21 07:23 Hgb 13.4 g/dL (12.0-16.0) 10/08/21 07:23 Hct 39.5 % (36.0-47.0) 10/08/21 07: MCV 95.9 fL (80.0-100.0) 10/08/21 07:23 MCH 32.5 pg (27.0-34.0) 10/08/21 07: MCHC 33.9 g/dL (33.0-35.0) 10/08/21 07: RDW 15.2 % (11.6-16.5) 10/08/21 07: Plt Count 359 X10^3/uL (150.0-450.0) 10/08/21 07: Plt Count Comment Adequate (ADEQUATE) 10/08/21: MPV 8.7 fL (7.4-11.0) 10/08/21 07: Neut % (Auto) 77.8 % (42.0-75.0) H 10/08/21 07: Lymph % (Auto) 15.7 % (21.0-51.0) L 10/08/21 07: Terrell % (Auto) 4.9 % (0.0-13.0) 10/08/21: Eos % (Auto) 0.3 % (0.9-2.9) L 10/08/21 07: Baso % (Auto) 1.3 % (0.2-1.0) H 10/08/21: Neut # (Auto) 8.7 x10^3/uL (2.2-4.8) H 10/08/21 07: Lymph # (Auto) 1.8 X10^3/uL (1.3-2.9) 10/08/21 07: Terrell # (Auto) 0.6 x10^3/uL (0.3-0.8) 10/08/21 07: Eos # (Auto) 0.0 x10^3/uL (0.0-0.2) 10/08/21 07: Baso # (Auto) 0.1 X10^3/uL (0.0-0.1) 10/08/21: Absolute Nucleated RBC 0.1 /100WBC 10/08/21 07: Plt Clumps, EDTA Few 10/08/21 07: Plt Morphology Comment Normal (NORMAL) 10/08/21 07: RBC Morphology Normal (NORMAL) 10/08/21 07: Sodium 137 mmol/L (136-145) 10/08/21 07:23 Corrected Sodium TNP 10/08/21 07:23 Potassium 4.2 mmol/L (3.5-5.1) 10/08/21 07:23 Chloride 100 mmol/L (98-107) 10/08/21 07:23 Carbon Dioxide 26.3 mmol/L (21-32) 10/08/21 07:23 BUN 13 mg/dL (7-18) 10/08/21 07:23 Creatinine 0.63 mg/dL (0.55-1.02) 10/08/21 07:23 Est GFR (MDRD) Af Amer > 60 (>60) 10/08/21 07:23 Est GFR (MDRD) Non-Af > 60 (>60) 10/08/21 07:23 Glucose 108 mg/dL (65-99) H 10/08/21 07:23 Calcium 9.4 mg/dL (8.5-10.1) 10/08/21 07:23 Corrected Calcium TNP 10/08/21 07:23 Total Bilirubin 0.40 mg/dL (0.2-1.0) 10/08/21 07:23 AST 32 Units/L (15-37) 10/08/21 07:23 ALT 25 Units/L (12-78) 10/08/21 07:23 Alkaline Phosphatase 133 Units/L (46-116) H 10/08/21 07:23 Total Protein 7.4 g/dL (6.4-8.2) 10/08/21 07:23 Albumin 3.6 g/dL (3.4-5.0) 10/08/21 07:23 Globulin 3.8 g/dL (2.5-4.5) 10/08/21 07:23 Albumin/Globulin Ratio 0.9 Ratio (1.1-2.1) L 10/08/21 07:23 Specimen Type Catherized urine 10/08/21 08:20 Urine Color Yellow (YELLOW) 10/08/21 08:20 Urine Appearance Clear (CLEAR) 10/08/21 08:20 Urine pH 7.0 (5.0 - 8.0) 10/08/21 08:20 Ur Specific [place] 1.015 (1.000-1.030) 10/08/21 08:20 Urine Protein Negative (NEGATIVE) 10/08/21 08:20 Urine Glucose (UA) Negative (NEGATIVE) 10/08/21 08:20 Urine Ketones 3+ (NEGATIVE) 10/08/21 08:20 Urine Blood Negative (NEGATIVE) 10/08/21 08:20 Urine Nitrite Positive (NEGATIVE) 10/08/21 08:20 Urine Bilirubin Negative (NEGATIVE) 10/08/21 08:20 Urine Urobilinogen Normal (NORMAL) 10/08/21 08:20 Ur Leukocyte Esterase 2+ (NEGATIVE) 10/08/21 08:20 Urine RBC 0-2 /HPF (0-3) 10/08/21 08:20 Urine WBC 20-30 /HPF (0-5) A 10/08/21 08:20 Ur Squamous Epith Cells Rare /HPF (NEGATIVE) 10/08/21 08:20 Ur Transition Epith Cell Rare /HPF (NEGATIVE) 10/08/21 08:20 Amorphous Sediment Trace /HPF (NEGATIVE) 10/08/21 08:20 Urine Bacteria 2+ /HPF (NEGATIVE) 10/08/21 08:20 Ur Culture Indicated? Yes/culture set up 10/08/21 08:20 SARS-CoV-2 (PCR) Negative (NEGATIVE) 10/08/21 09:00 <JONO SOOD - Last Filed: 10/09/21 00:05> Labs Reviewed Laboratory Results Reviewed?: Yes Laboratory: WBC 11.2 X10^3/uL (3.6-10.0) H 10/08/21 07:23 RBC 4.12 X10^6/uL (3.5-5.4) 10/08/21 07:23 Hgb 13.4 g/dL (12.0-16.0) 10/08/21 07:23 Hct 39.5 % (36.0-47.0) 10/08/21 07:23 MCV 95.9 fL (80.0-100.0) 10/08/21 07:23 MCH 32.5 pg (27.0-34.0) 10/08/21 07: MCHC 33.9 g/dL (33.0-35.0) 10/08/21 07:23 RDW 15.2 % (11.6-16.5) 10/08/21 07:23 Plt Count 359 X10^3/uL (150.0-450.0) 10/08/21 07: Plt Count Comment Adequate (ADEQUATE) 10/08/21 07: MPV 8.7 fL (7.4-11.0) 10/08/21 07: Neut % (Auto) 77.8 % (42.0-75.0) H 10/08/21 07: Lymph % (Auto) 15.7 % (21.0-51.0) L 10/08/21 07: Terrell % (Auto) 4.9 % (0.0-13.0) 10/08/21 07: Eos % (Auto) 0.3 % (0.9-2.9) L 10/08/21 07: Baso % (Auto) 1.3 % (0.2-1.0) H 10/08/21 07: Neut # (Auto) 8.7 x10^3/uL (2.2-4.8) H 10/08/21 07: Lymph # (Auto) 1.8 X10^3/uL (1.3-2.9) 10/08/21 07:23 Terrell # (Auto) 0.6 x10^3/uL (0.3-0.8) 10/08/21 07: Eos # (Auto) 0.0 x10^3/uL (0.0-0.2) 10/08/21 07: Baso # (Auto) 0.1 X10^3/uL (0.0-0.1) 10/08/21 07: Absolute Nucleated RBC 0.1 /100WBC 10/08/21 07: Plt Clumps, EDTA Few 10/08/21 07:23 Plt Morphology Comment Normal (NORMAL) 10/08/21 07: RBC Morphology Normal (NORMAL) 10/08/21 07: Sodium 137 mmol/L (136-145) 10/08/21 07:23 Corrected Sodium TNP 10/08/21 07: Potassium 4.2 mmol/L (3.5-5.1) 10/08/21 07: Chloride 100 mmol/L (98-107) 10/08/21 07: Carbon Dioxide 26.3 mmol/L (21-32) 10/08/21 07: BUN 13 mg/dL (7-18) 10/08/21 07:23 Creatinine 0.63 mg/dL (0.55-1.02) 10/08/21 07:23 Est GFR (MDRD) Af Amer > 60 (>60) 10/08/21 07:23 Est GFR (MDRD) Non-Af > 60 (>60) 10/08/21 07:23 Glucose 108 mg/dL (65-99) H 10/08/21 07:23 Calcium 9.4 mg/dL (8.5-10.1) 10/08/21 07:23 Corrected Calcium TNP 10/08/21 07:23 Total Bilirubin 0.40 mg/dL (0.2-1.0) 10/08/21 07:23 AST 32 Units/L (15-37) 10/08/21 07:23 ALT 25 Units/L (12-78) 10/08/21 07:23 Alkaline Phosphatase 133 Units/L (46-116) H 10/08/21 07:23 Total Protein 7.4 g/dL (6.4-8.2) 10/08/21 07:23 Albumin 3.6 g/dL (3.4-5.0) 10/08/21 07:23 Globulin 3.8 g/dL (2.5-4.5) 10/08/21 07:23 Albumin/Globulin Ratio 0.9 Ratio (1.1-2.1) L 10/08/21 07:23 Specimen Type Catherized urine 10/08/21 08:20 Urine Color Yellow (YELLOW) 10/08/21 08:20 Urine Appearance Clear (CLEAR) 10/08/21 08:20 Urine pH 7.0 (5.0 - 8.0) 10/08/21 08:20 Ur Specific [place] 1.015 (1.000-1.030) 10/08/21 08:20 Urine Protein Negative (NEGATIVE) 10/08/21 08:20 Urine Glucose (UA) Negative (NEGATIVE) 10/08/21 08:20 Urine Ketones 3+ (NEGATIVE) 10/08/21 08:20 Urine Blood Negative (NEGATIVE) 10/08/21 08:20 Urine Nitrite Positive (NEGATIVE) 10/08/21 08:20 Urine Bilirubin Negative (NEGATIVE) 10/08/21 08:20 Urine Urobilinogen Normal (NORMAL) 10/08/21 08:20 Ur Leukocyte Esterase 2+ (NEGATIVE) 10/08/21 08:20 Urine RBC 0-2 /HPF (0-3) 10/08/21 08:20 Urine WBC 20-30 /HPF (0-5) A 10/08/21 08:20 Ur Squamous Epith Cells Rare /HPF (NEGATIVE) 10/08/21 08:20 Ur Transition Epith Cell Rare /HPF (NEGATIVE) 10/08/21 08:20 Amorphous Sediment Trace /HPF (NEGATIVE) 10/08/21 08:20 Urine Bacteria 2+ /HPF (NEGATIVE) 10/08/21 08:20 Ur Culture Indicated? Yes/culture set up 10/08/21 08:20 SARS-CoV-2 (PCR) Negative (NEGATIVE) 10/08/21 09:00 Opioid <Indy Jeffers - Last Filed: 10/08/21 07:54> Opioid Risk Tool Age (Sandor box if 16-45): No History of Preadolescent Sexual Abuse: No Total: 0 Total Score Risk Category: Low Risk Copyright: Yosef BRISENO predicting aberrant behaviors <JONO SOOD - Last Filed: 10/09/21 00:05> Opioid Risk Tool Total: 0 Total Score Risk Category: Low Risk <Indy Jeffers - Last Filed: 10/08/21 07:54> Diagnosis Discharge Problem: Left lateral ankle pain, Acute UTI Fall Qualifiers: Encounter type: initial encounter Qualified Code(s): W19.XXXA - Unspecified fall, initial encounter Knee pain, left Qualifiers: Chronicity: acute Qualified Code(s): M25.562 - Pain in left knee Abrasion of scalp Qualifiers: Encounter type: initial encounter Qualified Code(s): S00.01XA - Abrasion of scalp, initial encounter Fracture of superior pubic ramus Qualifiers: Encounter type: initial encounter Fracture type: closed Laterality: left Qualified Code(s): S32.512A - Fracture of superior rim of left pubis, initial encounter for closed fracture <ADEWUNMI SOBOWALE - Last Filed: 10/09/21 00:05> Additional Notes Additional Notes: Name: GRIS WATERS [facility]#: [id number]: [id number] : 1935Sex: FLocation: ER Order Number(s): [id number](s):ANKLE, LEFT Ordering Physician: Indy Jfefers Primary Care: Suhail Gaona Service Date: 10/08/21 Service Time: 0750 HISTORY Fall, left ankle pain STUDY Left ankle three views COMPARISON None FINDINGS The bones are osteopenic. No definite fracture, lytic, or blastic lesion is identified. No joint effusion or joint erosion is identified. No soft tissue abnormality is identified. IMPRESSION No acute traumatic abnormality Osteopenia Electronically signed by: JAZMYNE MONTEZ (Oct 08, 2021 08:47:47) Report Electronically signed: 10/08/21 0848 CC: Indy Jeffers Name: GRIS WATERS [facility]#: [id number]: [id number] : 1935Sex: FLocation: ER Order Number(s): [id number](s):BRAIN W/O CON Ordering Physician: Indy Jeffers Primary Care: Suhail Gaona Service Date: 10/08/21 Service Time: 729 HISTORY Fall, head injury, left neck pain STUDY CT head without contrast Technique: Axial noncontrast images with coronal and sagittal reformats. Dose reduction procedures were used with mA/kv adjusted for body size. COMPARISON 08/25/2021 FINDINGS The ventricles, cortical sulci, and other CSF spaces are enlarged consistent with generalized atrophy likely age related. There is decreased attenuation in the periventricular white matter suggestive of small vessel vascular disease. There is a lacunar infarct in the right anterior ivanna. This appears old but new when compared to the prior examination. There are no focal areas of abnormal attenuation to suggest recent CVA, hemorrhage, contusion, mass lesion, or extra-axial fluid collection. The visualized sinuses are. The calvarium is intact. 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 Electronically signed by: JAZMYNE MONTEZ (Oct 08, 2021 08:24:31) Report Electronically signed: 10/08/21 0825 CC: Indy Jeffers
[2021-10-08 07:55] LABS: WHITE BLOOD COUNT 11.2 X10^3/uL (3.6-10.0)
[2021-10-08 07:56] LABS: PLATELET MORPHOLOGY COMMENT NORMAL (NORMAL)
--- NOTE | 2021-10-08 08:25 | CT ---
HISTORYFall, head injury, left neck painSTUDYCT head without contrastTechnique: Axial noncontrast images with coronal and sagittal reformats. Dose reduction procedures were used with mA/kv adjusted for body size.ZUAGWOELHM33/07/2022FINDINGSThe ventricles, cortical sulci, and other CSF spaces are enlarged consistent with generalized atrophy likely age related. There is decreased attenuation in the periventricular white matter suggestive of small vessel vascular disease. There is a lacunar infarct in the right anterior ivanna. This appears old but new when compared to the prior examination. There are no focal areas of abnormal attenuation to suggest recent CVA, hemorrhage, contusion, mass lesion, or extra-axial fluid collection. The visualized sinuses are. The calvarium is intact.IMPRESSIONNo definite acute intracranial abnormalityGeneralized atrophy likely age relatedDiffuse small vessel vascular diseaseLacunar infarct in the right anterior ivanna which does not appear recent but is new since the prior examination.Electronically signed by: JAZMYNE MONTEZ (Oct 08, 2021 08:24:31)
[2021-10-08 08:29] LABS: BILIRUBIN,URINE NEGATIVE (NEGATIVE); BLOOD/HEMOGLOBIN,URINE NEGATIVE (NEGATIVE); GLUCOSE, URINE NEGATIVE (NEGATIVE); KETONES,URINE 3+ (NEGATIVE); LEUKOCYTE ESTERASE ,URINE 2+ (NEGATIVE); NITRITES,URINE POSITIVE (NEGATIVE); PROTEIN,URINE NEGATIVE (NEGATIVE); UROBILINOGEN,URINE NORMAL (NORMAL)
--- NOTE | 2021-10-08 08:41 | RAD ---
HISTORYPt c/o pain to left side of neck, left shoulder, left knee an left ankle s/p fall. Pt is aao x 4. Pulses palpable to bilateral feet. Pt fell at midnight and was found by family after 6 am.STUDYHIP, LEFTCOMPARISONLeft hip radiograph 08/25/2021.TECHNIQUEAP pelvis and lateral view left hip.FINDINGSStatus post left hip arthroplasty. No radiographic hardware complication. Bones are osteopenic. There is mild irregularity suspicious for fracture at the left superior pubic ramus. Lucency at the left sacral ala may be due to bowel gas.IMPRESSIONMild irregularity suspicious for fracture at the left superior pubic ramus. Recommend CT to evaluate for other radiographically occult fractures.Electronically signed by: Yung Encarnacion (Oct 08, 2021 08:40:39)
[2021-10-08 08:45] LABS: APPEARANCE,URINE CLEAR (CLEAR); BACTERIA,URINE 2+ /HPF (NEGATIVE); COLOR,URINE YELLOW (YELLOW); RBC,URINE 0-2 /HPF (0-3); SQUAMOUS EPITHELIAL CELL,UR RARE /HPF (NEGATIVE)
[2021-10-08 08:46] LABS: TRANSITIONAL EPI CELLS,URINE RARE /HPF (NEGATIVE)
--- NOTE | 2021-10-08 08:48 | RAD ---
HISTORYFall, left ankle painSTUDYLeft ankle three viewsCOMPARISONNoneFINDINGSThe bones are osteopenic. No definite fracture, lytic, or blastic lesion is identified. No joint effusion or joint erosion is identified. No soft tissue abnormality is identified.IMPRESSIONNo acute traumatic abnormalityOsteopeniaElectronically signed by: JAZMYNE MONTEZ (Oct 08, 2021 08:47:47)
[2021-10-08] MEDS ORDERED: ROCEPHIN 1 GRAM IV PREMIX 1 G/50 ML IV.SOLN. IV ONE ×2 (09:15→09:30)
[2021-10-08] MEDS ORDERED: NEURONTIN CAP 300 MG PO PRN (10:14)
[2021-10-08] MEDS: ROCEPHIN VIAL 1 GRAM 1 G in NS 100 ML IV 100 ML IV SCH (11:00)
[2021-10-08] MEDS: NS 1,000 ML IV 1,000 ML IV SCH ×3 (11:00→20:54)
[2021-10-08] MEDS ORDERED: MORPHINE SULFATE INJ 2 MG INJ IVP PRN (13:56)
--- NOTE | 2021-10-08 14:08 | RAD ---
HISTORYPt c/o pain to left side of neck, left shoulder, left knee an left ankle s/p fall. Pt is aao x 4. Pulses palpable to bilateral feet. Pt fell at midnight and was found by family after 6 am. HTN, DM, ARTHRITIS SX: SUE HYST ORTHOSTUDYKNEE COMPLETE, LEFT three-viewCOMPARISONNoneFINDINGSNo evidence for acute cortical disruption or dislocation. Left total knee arthroplasty. No evidence of hardware fracture or loosening. No large knee joint effusion.IMPRESSIONNo acute fracture or hardware complication.Electronically signed by: JAZMYNE MONTEZ (Oct 08, 2021 14:07:23)
--- NOTE | 2021-10-08 14:58 | CT ---
HISTORYPUBIC RAMI FXSTUDYCT pelvis without IV contrastCOMPARISONX-ray from same dayTECHNIQUEMultiple axial images of the pelvis were obtained without the administration of IV contrast. Dose reduction techniques including Automated Exposure Control (AEC) and adjustment of mA and kV were utilized.FINDINGSPosterior fusion is seen in the lower lumbar spine. Visualized portions of the hardware appear normal. Bones are prominently osteopenic. There may be osteomalacia. There is no widening of the symphysis pubis or SI joints.There is angulation of the mid coccyx which could be from old fracture or possibly a recent nondisplaced fracture. Very slight cortical irregularity is seen of the body of the left pubic bone. This may be from an old healed fracture. No acute pubic bone fracture is seen.Patient has a left SUSANA which causes artifact slightly limiting evaluation. It appears normal. Little arthritic changes are seen in the right hip. Small umbilical hernia is seen containing fat and there may be small inguinal hernias containing fat.IMPRESSIONProbable old healed fracture of the midbody of the coccyx with mild angulation. Less likely this is a recent nondisplaced fracture.Likely old healed fracture of the body of the left pubic bones. No suggestion of acute pubic bone fracture.Electronically signed by: Yifan Vang (Oct 08, 2021 14:57:09)
[2021-10-08] MEDS: ZOCOR TAB 40 MG PO SCH (20:49)
[2021-10-08] MEDS: ANTIVERT TAB 25 MG PO SCH (20:49)
[2021-10-08] MEDS: ZYLOPRIM PO SCH (20:49)
[2021-10-08] MEDS: CYMBALTA PO SCH (20:50)
[2021-10-08] MEDS: NORCO 5/325 MG TAB PO PRN (20:50)
[2021-10-08] MEDS ORDERED: BUTT CREAM (COMPOUND) TOP PRN (23:18)
[2021-10-09 04:56] LABS: ALANINE AMINOTRANSFERASE 20 Units/L (12-78); ALBUMIN 2.6 g/dL (3.4-5.0); ALKALINE PHOSPHATASE 105 Units/L (46-116); ASPARTATE AMINO TRANSFERASE 25 Units/L (15-37); BLOOD UREA NITROGEN 6 mg/dL (7-18); CALCIUM 8.2 mg/dL (8.5-10.1); CARBON DIOXIDE 27.1 mmol/L (21-32); CHLORIDE 103 mmol/L (98-107); COR CA(FOR HYPOALB) 9.3 mg/dL (8.5-10.1); CREATININE 0.53 mg/dL (0.55-1.02); SODIUM 135 mmol/L (136-145); TOTAL PROTEIN 5.9 g/dL (6.4-8.2); eGFR NON BLACK RACES > 60 (>60)
[2021-10-09 05:13] LABS: MEAN PLATELET VOLUME 8.5 fL (7.4-11.0)
[2021-10-09 05:16] LABS: BASOPHILS % (AUTO) 0.6 % (0.2-1.0); EOSINOPHILS # (AUTO) 0.1 x10^3/uL (0.0-0.2); HEMATOCRIT 34.6 % (36.0-47.0); HEMOGLOBIN 12.1 g/dL (12.0-16.0); LYMPHOCYTES # (AUTO) 1.5 X10^3/uL (1.3-2.9); LYMPHOCYTES % (AUTO) 24.3 % (21.0-51.0); MEAN CORPUSCULAR HEMOGLOBIN 33.6 pg (27.0-34.0); MEAN CORPUSCULAR HGB CONC 34.9 g/dL (33.0-35.0); MEAN CORPUSCULAR VOLUME 96.3 fL (80.0-100.0); MONOCYTES # (AUTO) 0.4 x10^3/uL (0.3-0.8); MONOCYTES % (AUTO) 5.7 % (0.0-13.0); NEUTROPHILS # (AUTO) 4.3 x10^3/uL (2.2-4.8); NEUTROPHILS % (AUTO) 68.4 % (42.0-75.0); RED CELL DISTRIBUTION WIDTH 15.3 % (11.6-16.5); WHITE BLOOD COUNT 6.3 X10^3/uL (3.6-10.0)
[2021-10-09] MEDS ORDERED: MICRO K EXTEN CAP 10 MEQ PO PRN (07:24)
[2021-10-09] MEDS ORDERED: K-RIDER 10 MEQ/NS 100 ML 10 MEQ/100 ML BAG IV PRN (07:24)
[2021-10-09] MEDS ORDERED: POTASSIUM CHL 60 MEQ/NS 0.45% 500 ML IV PRN (07:24)
[2021-10-09] MEDS ORDERED: KLOR-CON PO PRN (07:24)
[2021-10-09] MEDS ORDERED: POTASSIUM CHLORIDE LIQ 20 MEQ UDC PO PRN (07:24)
[2021-10-09] MEDS ORDERED: MAGNESIUM SULFATE 1 GRAM/100 mL PREMIX 1 G/100 ML BAG IV PRN (07:24)
[2021-10-09] MEDS ORDERED: K-DUR TAB 20 MEQ PO PRN (07:24)
[2021-10-09] MEDS ORDERED: POTASSIUM CHL 40 MEQ/NS 0.45% 500 ML IV PRN (07:24)
[2021-10-09] MEDS ORDERED: [UNRECOGNIZED DRUG - OTHER] PO SCH (09:00)
[2021-10-09] MEDS: SINGULAIR TAB 10 MG PO SCH (10:00)
[2021-10-09] MEDS: ANTIVERT TAB 25 MG PO SCH ×2 (10:00→20:25)
[2021-10-09] MEDS: TAB-A-VITE PO SCH (10:00)
[2021-10-09] MEDS: ROCEPHIN VIAL 1 GRAM 1 G in NS 100 ML IV 100 ML IV SCH (10:00)
--- NOTE | 2021-10-09 10:29 | DR.H&P ---
H&P - History & Physical for Day of: H&P Date: 10/08/21 - Chief Complaint Chief Complaint: LEFT ANKLE, KNEE, HIP PAIN, HEADACHE, DIZZINESS, WEAKNESS, UNSTEADY GAIT - History of Present Illness History of Present Illness: IS A 86 YEAR OLD PATIENT OF OURS. SHE PRESENTED TO THE ER WITH COMPLAINTS OF LEFT ANKLE, KNEE, AND HIP PAIN FOLLOWING A FALL AT HOME. SHE ALSO COMPLAINS OF HEADACHE, DIZZINESS, AND UNSTEADY GAIT. SHE REPORTS THAT HER DIASTOLIC BLOOD PRESSURE ROUTINELY DROPS INTO THE 40s. SHE DENIES CHEST PAIN, SHORTNESS OF BREATH, ABDOMINAL PAIN, OR N/V/D. PMH INCLUDES ARTHRITIS, DM II, HTN, CHOLECYSTECTOMY, HYSTERECTOMY, LEFT HIP REPLACEMENT, AND KNEE REPLACEMENT. EXAMINATION REVEALED SCATTERED BRUISING AND TENDERNESS TO THE LEFT KNEE. LEFT LATERAL MALLEOLOUS SWELLING AND TENDERNESS NOTED. THERE IS A 1- 2CM SUPERFICIAL ABRASION TO THE LEFT POSTERIOR SCALP. NO ACTIVE BLEEDING NOTED. THERE ARE THREE SMALL STAGE 1 ULCERS TO THE BUTTOCKS. ON ARRIVAL, HER VITASL WERE 97.7-99-20-100%-102/57. LABS WERE OBTAINED. WBC 11.2, RBC 4.12, HGB 13.4, HCT 39.5, SODIUM 137, POTASSIUM 4.2, BUN 13, CREATININE 0.63, GLUCOSE 108, CALCIUM 9.4, TOTAL BILI 0.40, TOTAL PROTEIN 7.4, ALBUMIN 3.6. URINALYSIS REVEALED: WBC 20-30, RBC 0-2, LEUKOCYTES 2+, BACTERIA 2+, NITRITES POSITIE. A URINE CULTURE WAS SET UP. COVID-[address] WITHOUT CONTRAST WAS OBTAINED AND REVEALED: No definite acute intracranial abnormality. Generalized atrophy likely age related. Diffuse small vessel vascular disease. 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 LEFT ANKLE XRAY REVEALED: No acute traumatic abnormality. Osteopenia. HIP XRAY REVEALED: Mild irregularity suspicious for fracture at the left superior pubic ramus. Recommend CT to evaluate for other radiographically occult fractures. LEFT KNEE XRAY REVEALED: No acute fracture or hardware complication. WE OBTAINED A PELVIS CT WITHOUT CONTRAST. IT REVEALED: Probable old healed fracture of the midbody of the coccyx with mild angulation. Less likely this is a recent nondisplaced fracture. Likely old healed fracture of the body of the left pubic bones. No suggestion of acute pubic bone fracture. IN THE ER, SHE WAS GIVEN NORCO 5/325MG PO X 1 DOSE, ROCEPHIN 1G IV X 1 DOSE. SHE WAS ADMITTED TO THE HOSPTIAL FOR FURTHER EVALUATION AND TREATMENT OF UTI, SCALP ABRASION, FREQUENT FALLS, AND PUBIC RAMI FX. SHE WAS STARTED ON NORMAL SALINE AT 75 ML/HR, ROCEPHIN 1G IM DAILY, THE POTASSIUM AND MAGNESIUM PROTOCOLS, MORPHINE 2MG IV Q4H PRN, OTBS ACHS, AND HER HOME MEDICATIONS WERE RESUMED. TODAY, WE WILL OBTAIN A BRAIN MRI WITHOUT CONTRAST TO FURTHER ASSESS FOR CVA. OTHERWISE, WE PLAN TO FOLLOW UP WITH AM LABS AND CONTINUE TO MONITOR. WE WILL HAVE PT EVALUATE PATIENT. TIME SPENT ON CLINICAL ASSESSMENT, REVIEWING LABS AND IMAGING, DECISION MAKING, AND DOCUMENTATION GREATER THAN 75 MINUTES. - Past Medical History Past Medical History: Hypertension, Diabetes, Arthritis Additional Medical History: Freq UTI's - Past Surgical History Surgical History: Cholecystectomy, Hysterectomy, Joint Replacement, Ortho Surgery - Family History Family Medical History: Diabetes Mellitus, Cancer, Hypertension - Social History Does patient currently use any type of tobacco product: No Have you used tobacco products in the last 12 months: No Type of Tobacco Use: None Does any household member use tobacco: No Alcohol Use: None Drug Use: None - Medications Home Medications: aspirin Allergy (Verified 01/27/17 11:32) fluconazole [From Diflucan] Allergy (Verified 01/27/17 11:08) rofecoxib [From Vioxx] Allergy (Verified 01/27/17 11:08) tizanidine [From Zanaflex] Allergy (Verified 01/27/17 11:08) - Review of Systems Constitutional: Weakness Eyes: No Symptoms Reported ENT: No Symptoms Reported Respiratory: No Symptoms Reported Cardiovascular: [place] Gastrointestinal: No Symptoms Reported Genitourinary: No Symptoms Reported Musculoskeletal: See HPI, Leg Pain, Other (LEFT KNEE, ANKLE, AND HIP PAIN ) Skin: Bruising Neurological: See HPI, Weakness, Incoordination - Physical Exam Vital Signs: Temperature 97.8 F Pulse Rate [Bilateral Radial] 88 Pulse Rate 88 Respiratory Rate 20 Blood Pressure [Right Calf] 136/67 Blood Pressure [Left Calf] 155/63 Blood Pressure [Left Arm] 127/60 Blood Pressure [Right Arm] 121/66 Blood Pressure 130/75 O2 Sat by Pulse Oximetry 92 Oriented: Time, Person, Place Eyes: Normal Ear: Normal Nose: Normal Throat: Normal Respiratory: Diminished Throughout Cardiovascular: Normal : Normal Auscultation: Bowel Sounds: Normal Palpation: Normal Tenderness: Normal Skin: Bruising Musculoskeletal: Left, Hip, Knee, Leg, Swelling (LEFT ANKLE/FOOT TRACE EDEMA ), Tender Psychiatric: Normal Mood Description: Calm Affect: Normal Speech Pattern: Clear - Assessment/Plan (1) Acute UTI Status: Acute Plan: ADMIT, NORMAL SALINE AT 75 ML/HR, ROCEPHIN 1G IM DAILY, THE POTASSIUM AND MAGNESIUM PROTOCOLS, MORPHINE 2MG IV Q4H PRN, OTBS ACHS, AND HER HOME MEDICATIONS WERE RESUMED. (2) Pubic ramus fracture Qualifiers: Encounter type: initial encounter Fracture type: closed Laterality: left Qualified Code(s): S32.592A - Other specified fracture of left pubis, initial encounter for closed fracture Status: Acute (3) Abrasion of scalp Qualifiers: Encounter type: initial encounter Qualified Code(s): S00.01XA - Abrasion of scalp, initial encounter Status: Acute (4) Frequent falls Status: Acute (5) Dizziness Status: Acute (6) Unsteady gait Status: Acute (7) Diabetes mellitus, type 2 Qualifiers: Diabetes mellitus long term care pharmacist insulin use: with usp use Diabetes mellitus complication status: with hyperglycemia Qualified Code(s): E11.65 - Type 2 diabetes mellitus with hyperglycemia; Z79.4 - correction (current) use of insulin Status: Chronic (8) Essential hypertension Status: Chronic (9) Hyperlipidemia Qualifiers: Hyperlipidemia type: mixed hyperlipidemia Qualified Code(s): E78.2 - Mixed hyperlipidemia Status: Chronic - Allergies Allergies/Adverse Reactions: Allergies Allergy/AdvReac Type Severity Reaction Status Date / Time aspirin Allergy Verified 01/27/17 11:32 fluconazole [From Diflucan] Allergy Verified 01/27/17 11:08 rofecoxib [From Vioxx] Allergy Verified 01/27/17 11:08 tizanidine [From Zanaflex] Allergy Verified 01/27/17 11:08
[2021-10-09] MEDS: NS 1,000 ML IV 1,000 ML IV SCH ×2 (11:45→19:04)
[2021-10-09] MEDS: NORCO 5/325 MG TAB PO PRN (20:24)
[2021-10-09] MEDS: ZOCOR TAB 40 MG PO SCH (20:25)
[2021-10-09] MEDS: CYMBALTA PO SCH (20:25)
[2021-10-09] MEDS: ZYLOPRIM PO SCH (20:26)
[2021-10-10] MEDS: NS 1,000 ML IV 1,000 ML IV SCH ×4 (02:49→20:43)
[2021-10-10 06:39] LABS: BASOPHILS # (AUTO) 0.1 X10^3/uL (0.0-0.1); BASOPHILS % (AUTO) 1.1 % (0.2-1.0); EOSINOPHILS # (AUTO) 0.1 x10^3/uL (0.0-0.2); EOSINOPHILS % (AUTO) 1.7 % (0.9-2.9); HEMATOCRIT 36.4 % (36.0-47.0); HEMOGLOBIN 12.4 g/dL (12.0-16.0); LYMPHOCYTES # (AUTO) 1.9 X10^3/uL (1.3-2.9); LYMPHOCYTES % (AUTO) 28.5 % (21.0-51.0); MEAN CORPUSCULAR HEMOGLOBIN 32.9 pg (27.0-34.0); MEAN CORPUSCULAR HGB CONC 33.9 g/dL (33.0-35.0); MEAN CORPUSCULAR VOLUME 96.8 fL (80.0-100.0); MEAN PLATELET VOLUME 8.3 fL (7.4-11.0); MONOCYTES # (AUTO) 0.5 x10^3/uL (0.3-0.8); MONOCYTES % (AUTO) 7.2 % (0.0-13.0); NEUTROPHILS # (AUTO) 4.1 x10^3/uL (2.2-4.8); NEUTROPHILS % (AUTO) 61.5 % (42.0-75.0); RED BLOOD COUNT 3.76 X10^6/uL (3.5-5.4); RED CELL DISTRIBUTION WIDTH 15.2 % (11.6-16.5); WHITE BLOOD COUNT 6.6 X10^3/uL (3.6-10.0)
[2021-10-10 06:59] LABS: ALANINE AMINOTRANSFERASE 22 Units/L (12-78); ALBUMIN 2.7 g/dL (3.4-5.0); ALKALINE PHOSPHATASE 106 Units/L (46-116); ASPARTATE AMINO TRANSFERASE 28 Units/L (15-37); BLOOD UREA NITROGEN 7 mg/dL (7-18); CALCIUM 8.8 mg/dL (8.5-10.1); CARBON DIOXIDE 25.7 mmol/L (21-32); CHLORIDE 103 mmol/L (98-107); COR CA(FOR HYPOALB) 9.8 mg/dL (8.5-10.1); SODIUM 135 mmol/L (136-145); TOTAL PROTEIN 6.1 g/dL (6.4-8.2); eGFR NON BLACK RACES > 60 (>60)
[2021-10-10] MEDS: ANTIVERT TAB 25 MG PO SCH ×2 (08:16→20:40)
[2021-10-10] MEDS: TAB-A-VITE PO SCH (08:16)
[2021-10-10] MEDS: CIPRO IV 400 MG PREMIX* 400 MG/200 ML IV.SOLN. IV SCH ×2 (08:16→20:40)
[2021-10-10] MEDS: SINGULAIR TAB 10 MG PO SCH (08:16)
--- NOTE | 2021-10-10 11:05 | PCM.PROG ---
Progress Note Progress Note for Day of Date of Exam: 10/10/21 Subjective Subjective: PT IS A 86 YEAR OLD PATIENT PMH INCLUDES ARTHRITIS, DM II, HTN, CHOLECYSTECTOMY, HYSTERECTOMY, LEFT HIP REPLACEMENT, AND KNEE REPLACEMENT, ADMITTED FOR ACUTE CYSTITIS AND FREQUENT FALLS. THIS MORNING PT IS RESTING COMFORTABLY IN BED, NO ACUTE EVENTS OVERNIGHT. LABS/IMAGING: WBC 6.6, HGB 12.4, PLT 269, NA 135, K 3.8, CREATININE 0.50, GLUCOSE 97. URINE CULTURE POSITIVE FOR PSEUDOMONAS AUR., SUSCEPTIBLE TO CIPROFLOXACIN. HER TREATMENTS COURSE INCLUDES: IVF NORMAL SALINE AT 75 ML/HR, ROCEPHIN 1G IM DAILY, THE POTASSIUM AND MAGNESIUM PROTOCOLS, MORPHINE 2MG IV Q4H PRN, OTBS ACHS, AND HER HOME MEDICATIONS WERE RESUMED. BRAIN MRI WITHOUT CONTRAST TO FURTHER ASSESS FOR CVA HAS BEEN TAKING AN D THE RESULT IS PENDING. WILL CHANGE ANTIBIOTICS TO IV CIPROFLOXACIN BASED ON SENSITIVITIES. OTHERWISE, CONTINUE WITH CURRENT TREATMENT PLAN. MONITOR AND FOLLOW UP WITH AM LABS. WILL HAVE PHYSICAL THERAPY EVALUATE PATIENT. Past Medical Family Social History Past Med/Fam/Surg Hx: No changes since H&P Allergies: Allergies aspirin Allergy (Verified 01/27/17 11:32) fluconazole [From Diflucan] Allergy (Verified 01/27/17 11:08) rofecoxib [From Vioxx] Allergy (Verified 01/27/17 11:08) tizanidine [From Zanaflex] Allergy (Verified 01/27/17 11:08) Review of Systems ROS: No change since H&P Vital Signs and I&O's Vital Signs: Temperature 98.0 F Pulse Rate [Bilateral Radial] 82 Pulse Rate 88 Respiratory Rate 18 Blood Pressure [Right Calf] 136/67 Blood Pressure [Left Calf] 155/63 Blood Pressure [Left Arm] 137/67 Blood Pressure [Right Arm] 131/62 Blood Pressure 130/75 O2 Sat by Pulse Oximetry 94 Intake and Output: Intake & Output 10/07/21 10/08/21 10/09/21 10/10/21 23:59 23:59 23:59 23:59 Intake Total 2054 557 / 557 1057 / 1057 Balance 2054 557 / 557 1057 / 1057 Physical Exam Oriented: Time, Person and Place Eyes: Normal Ear: Normal Nose: Normal Throat: Normal Respiratory: Normal Cardiovascular: Normal : Normal Auscultation: Bowel Sounds: Normal Tenderness: Normal Skin: Bruising Musculoskeletal: Left, Hip, Knee, Leg, Swelling (LEFT ANKLE/FOOT TRACE EDEMA ) and Tender Psychiatric: Normal Mood Description: Calm Affect: Normal Speech Pattern: Clear Laboratory and Diagnostics Result Diagrams: 10/10/21 06:25 10/10/21 06:25 Labs: 10/08/21 08:20 Urine,Catheterized Urine Culture - Final Pseudomonas Aeruginosa Laboratory WBC 6.6 X10^3/uL (3.6-10.0) 10/10/21 06:25 RBC 3.76 X10^6/uL (3.5-5.4) 10/10/21 06:25 Hgb 12.4 g/dL (12.0-16.0) 10/10/21 06:25 Hct 36.4 % (36.0-47.0) 10/10/21 06:25 MCV 96.8 fL (80.0-100.0) 10/10/21 06:25 MCH 32.9 pg (27.0-34.0) 10/10/21 06:25 MCHC 33.9 g/dL (33.0-35.0) 10/10/21 06:25 RDW 15.2 % (11.6-16.5) 10/10/21 06:25 Plt Count 269 X10^3/uL (150.0-450.0) 10/10/21 06:25 Plt Count Comment Adequate (ADEQUATE) 10/08/21 07:23 MPV 8.3 fL (7.4-11.0) 10/10/21 06:25 Neut % (Auto) 61.5 % (42.0-75.0) 10/10/21 06:25 Lymph % (Auto) 28.5 % (21.0-51.0) 10/10/21 06:25 Emanuel % (Auto) 7.2 % (0.0-13.0) 10/10/21 06:25 Eos % (Auto) 1.7 % (0.9-2.9) 10/10/21 06:25 Baso % (Auto) 1.1 % (0.2-1.0) H 10/10/21 06:25 Neut # (Auto) 4.1 x10^3/uL (2.2-4.8) 10/10/21 06:25 Lymph # (Auto) 1.9 X10^3/uL (1.3-2.9) 10/10/21 06:25 Emanuel # (Auto) 0.5 x10^3/uL (0.3-0.8) 10/10/21 06:25 Eos # (Auto) 0.1 x10^3/uL (0.0-0.2) 10/10/21 06:25 Baso # (Auto) 0.1 X10^3/uL (0.0-0.1) 10/10/21 06:25 Absolute Nucleated RBC 0.0 /100WBC 10/10/21 06:25 Plt Clumps, EDTA Few 10/08/21 07:23 Plt Morphology Comment Normal (NORMAL) 10/08/21 07:23 RBC Morphology Normal (NORMAL) 10/08/21 07:23 Sodium 135 mmol/L (136-145) L 10/10/21 06:25 Corrected Sodium TNP 10/10/21 06:25 Potassium 3.8 mmol/L (3.5-5.1) 10/10/21 06:25 Chloride 103 mmol/L (98-107) 10/10/21 06:25 Carbon Dioxide 25.7 mmol/L (21-32) 10/10/21 06:25 BUN 7 mg/dL (7-18) 10/10/21 06:25 Creatinine 0.50 mg/dL (0.55-1.02) L 10/10/21 06:25 Est GFR (MDRD) Af Amer > 60 (>60) 10/10/21 06:25 Est GFR (MDRD) Non-Af > 60 (>60) 10/10/21 06:25 Glucose 97 mg/dL (65-99) 10/10/21 06:25 POC Glucose (mg/dL) 101 mg/dL (65-99) H 10/10/21 10:51 Calcium 8.8 mg/dL (8.5-10.1) 10/10/21 06:25 Corrected Calcium 9.8 mg/dL (8.5-10.1) 10/10/21 06:25 Magnesium 1.9 mg/dL (1.7-2.9) 10/09/21 04:15 Total Bilirubin 0.30 mg/dL (0.2-1.0) 10/10/21 06:25 AST 28 Units/L (15-37) 10/10/21 06:25 ALT 22 Units/L (12-78) 10/10/21 06:25 Alkaline Phosphatase 106 Units/L (46-116) 10/10/21 06:25 Total Protein 6.1 g/dL (6.4-8.2) L 10/10/21 06:25 Albumin 2.7 g/dL (3.4-5.0) L 10/10/21 06:25 Globulin 3.4 g/dL (2.5-4.5) 10/10/21 06:25 Albumin/Globulin Ratio 0.8 Ratio (1.1-2.1) L 10/10/21 06:25 Specimen Type Catherized urine 10/08/21 08:20 Urine Color Yellow (YELLOW) 10/08/21 08:20 Urine Appearance Clear (CLEAR) 10/08/21 08:20 Urine pH 7.0 (5.0 - 8.0) 10/08/21 08:20 Ur Specific [place] 1.015 (1.000-1.030) 10/08/21 08:20 Urine Protein Negative (NEGATIVE) 10/08/21 08:20 Urine Glucose (UA) Negative (NEGATIVE) 10/08/21 08:20 Urine Ketones 3+ (NEGATIVE) 10/08/21 08:20 Urine Blood Negative (NEGATIVE) 10/08/21 08:20 Urine Nitrite Positive (NEGATIVE) 10/08/21 08:20 Urine Bilirubin Negative (NEGATIVE) 10/08/21 08:20 Urine Urobilinogen Normal (NORMAL) 10/08/21 08:20 Ur Leukocyte Esterase 2+ (NEGATIVE) 10/08/21 08:20 Urine RBC 0-2 /HPF (0-3) 10/08/21 08:20 Urine WBC 20-30 /HPF (0-5) A 10/08/21 08:20 Ur Squamous Epith Cells Rare /HPF (NEGATIVE) 10/08/21 08:20 Ur Transition Epith Cell Rare /HPF (NEGATIVE) 10/08/21 08:20 Amorphous Sediment Trace /HPF (NEGATIVE) 10/08/21 08:20 Urine Bacteria 2+ /HPF (NEGATIVE) 10/08/21 08:20 Ur Culture Indicated? Yes/culture set up 10/08/21 08:20 SARS-CoV-2 (PCR) Negative (NEGATIVE) 10/08/21 09:00 Plan (1) Acute UTI: Status: Acute Plan: ADMIT, NORMAL SALINE AT 75 ML/HR, ROCEPHIN 1G IM DAILY, THE POTASSIUM AND MAGNESIUM PROTOCOLS, MORPHINE 2MG IV Q4H PRN, OTBS ACHS, AND HER HOME MEDICATIONS WERE RESUMED. (2) Pubic ramus fracture: Status: Acute Qualifiers: Encounter type: initial encounter Fracture type: closed Laterality: left Qualified Code(s): S32.592A - Other specified fracture of left pubis, initial encounter for closed fracture (3) Abrasion of scalp: Status: Acute Qualifiers: Encounter type: initial encounter Qualified Code(s): S00.01XA - Abrasion of scalp, initial encounter (4) Frequent falls: Status: Acute (5) Dizziness: Status: Acute (6) Unsteady gait: Status: Acute (7) Diabetes mellitus, type 2: Status: Chronic Qualifiers: Diabetes mellitus complication status: with hyperglycemia Diabetes mellitus termite exterminator insulin use: with snf use Qualified Code(s): E11.65 - Type 2 diabetes mellitus with hyperglycemia; Z79.4 - long term care pharmacist (current) use of insulin (8) Essential hypertension: Status: Chronic (9) Hyperlipidemia: Status: Chronic Qualifiers: Hyperlipidemia type: mixed hyperlipidemia Qualified Code(s): E78.2 - Mixed hyperlipidemia
[2021-10-10] MEDS ORDERED: MILK OF MAGNESIA PO PRN (15:34)
[2021-10-10] MEDS ORDERED: MILK OF MAGNESIA ONE (15:38)
[2021-10-10] MEDS: ZYLOPRIM PO SCH (20:40)
[2021-10-10] MEDS: COLACE CAP 100 MG PO SCH (20:41)
[2021-10-10] MEDS: ZOCOR TAB 40 MG PO SCH (20:41)
[2021-10-10] MEDS: CYMBALTA PO SCH (20:41)
[2021-10-10] MEDS: NORCO 5/325 MG TAB PO PRN (20:41)
[2021-10-11] MEDS: NS 1,000 ML IV 1,000 ML IV SCH ×3 (02:20→17:46)
[2021-10-11 07:17] LABS: ALANINE AMINOTRANSFERASE 23 Units/L (12-78); ALBUMIN 2.7 g/dL (3.4-5.0); ALKALINE PHOSPHATASE 109 Units/L (46-116); ASPARTATE AMINO TRANSFERASE 25 Units/L (15-37); BLOOD UREA NITROGEN 9 mg/dL (7-18); CALCIUM 8.4 mg/dL (8.5-10.1); CARBON DIOXIDE 27.6 mmol/L (21-32); CHLORIDE 100 mmol/L (98-107); COR CA(FOR HYPOALB) 9.4 mg/dL (8.5-10.1); CREATININE 0.48 mg/dL (0.55-1.02); SODIUM 134 mmol/L (136-145); TOTAL PROTEIN 6.2 g/dL (6.4-8.2); eGFR NON BLACK RACES > 60 (>60)
[2021-10-11 07:25] LABS: BASOPHILS # (AUTO) 0.2 X10^3/uL (0.0-0.1); BASOPHILS % (AUTO) 1.4 % (0.2-1.0); EOSINOPHILS # (AUTO) 0.1 x10^3/uL (0.0-0.2); EOSINOPHILS % (AUTO) 0.6 % (0.9-2.9); HEMATOCRIT 37.2 % (36.0-47.0); HEMOGLOBIN 12.6 g/dL (12.0-16.0); LYMPHOCYTES # (AUTO) 1.7 X10^3/uL (1.3-2.9); LYMPHOCYTES % (AUTO) 14.6 % (21.0-51.0); MEAN CORPUSCULAR HEMOGLOBIN 32.8 pg (27.0-34.0); MEAN CORPUSCULAR HGB CONC 33.9 g/dL (33.0-35.0); MEAN CORPUSCULAR VOLUME 96.8 fL (80.0-100.0); MEAN PLATELET VOLUME 9.8 fL (7.4-11.0); MONOCYTES # (AUTO) 0.6 x10^3/uL (0.3-0.8); MONOCYTES % (AUTO) 5.2 % (0.0-13.0); NEUTROPHILS # (AUTO) 9.1 x10^3/uL (2.2-4.8); NEUTROPHILS % (AUTO) 78.2 % (42.0-75.0); RED BLOOD COUNT 3.85 X10^6/uL (3.5-5.4); RED CELL DISTRIBUTION WIDTH 15.1 % (11.6-16.5); WHITE BLOOD COUNT 11.7 X10^3/uL (3.6-10.0)
[2021-10-11 08:02] LABS: PLATELET MORPHOLOGY COMMENT NORMAL (NORMAL)
[2021-10-11] MEDS: COLACE CAP 100 MG PO SCH ×2 (08:49→20:56)
[2021-10-11] MEDS: SINGULAIR TAB 10 MG PO SCH (08:49)
[2021-10-11] MEDS: CIPRO IV 400 MG PREMIX* 400 MG/200 ML IV.SOLN. IV SCH ×2 (08:49→20:56)
[2021-10-11] MEDS: TAB-A-VITE PO SCH (08:49)
[2021-10-11] MEDS: ANTIVERT TAB 25 MG PO SCH ×2 (08:49→20:56)
--- NOTE | 2021-10-11 08:53 | PCM.PROG ---
Progress Note Progress Note for Day of Date of Exam: 10/11/21 Subjective Subjective: PT IS A 86 YEAR OLD PATIENT PMH INCLUDES ARTHRITIS, DM II, HTN, CHOLECYSTECTOMY, HYSTERECTOMY, LEFT HIP REPLACEMENT, AND KNEE REPLACEMENT, ADMITTED FOR ACUTE CYSTITIS AND FREQUENT FALLS. The patient is resting this morning the bed but she is alert and awake. She has no new complaints this morning. I reviewed her urine culture and sensitivity and he grew out pseudomonas aeruginosa. It is sensitive to ciprofloxacin with RADHA of less than 1. She is to go to [facility] in 2 days from now for inpatient rehab rehabilitation. Potassium slightly low this morning we will replace and repeat routine labs in the morning consisting of a CBC, CMP. Past Medical Family Social History Past Med/Fam/Surg Hx: No changes since H&P Allergies: Allergies aspirin Allergy (Verified 01/27/17 11:32) fluconazole [From Diflucan] Allergy (Verified 01/27/17 11:08) rofecoxib [From Vioxx] Allergy (Verified 01/27/17 11:08) tizanidine [From Zanaflex] Allergy (Verified 01/27/17 11:08) Review of Systems ROS: No change since H&P Vital Signs and I&O's Vital Signs: Temperature 97.7 F Pulse Rate [Bilateral Radial] 88 Pulse Rate 88 Respiratory Rate 20 Blood Pressure [Right Calf] 136/67 Blood Pressure [Left Calf] 155/63 Blood Pressure [Left Arm] 126/59 Blood Pressure [Right Arm] 138/65 Blood Pressure 130/75 O2 Sat by Pulse Oximetry 94 Intake and Output: Intake & Output 10/08/21 10/09/21 10/10/21 10/11/21 11:59 11:59 11:59 11:59 Intake Total 2054 1614 / 1614 2845 / 2845 Balance 2054 1614 / 1614 2845 / 2845 Physical Exam Oriented: Time, Person and Place Eyes: Normal Ear: Normal Nose: Normal Throat: Normal Respiratory: Normal Cardiovascular: Normal : Normal Auscultation: Bowel Sounds: Normal Tenderness: Normal Skin: Bruising Musculoskeletal: Left, Hip, Knee, Leg, Swelling (LEFT ANKLE/FOOT TRACE EDEMA ) and Tender Psychiatric: Normal Mood Description: Calm Affect: Normal Speech Pattern: Clear Laboratory and Diagnostics Result Diagrams: 10/11/21 05:19 10/11/21 05:19 Labs: 10/08/21 08:20 Urine,Catheterized Urine Culture - Final Pseudomonas Aeruginosa Laboratory WBC 11.7 X10^3/uL (3.6-10.0) H 10/11/21 05:19 RBC 3.85 X10^6/uL (3.5-5.4) 10/11/21 05:19 Hgb 12.6 g/dL (12.0-16.0) 10/11/21 05:19 Hct 37.2 % (36.0-47.0) 10/11/21 05:19 MCV 96.8 fL (80.0-100.0) 10/11/21 05:19 MCH 32.8 pg (27.0-34.0) 10/11/21 05:19 MCHC 33.9 g/dL (33.0-35.0) 10/11/21 05:19 RDW 15.1 % (11.6-16.5) 10/11/21 05:19 Plt Count 242 X10^3/uL (150.0-450.0) 10/11/21 05:19 Plt Count Comment Adequate (ADEQUATE) 10/11/21 05:19 MPV 9.8 fL (7.4-11.0) 10/11/21 05:19 Neut % (Auto) 78.2 % (42.0-75.0) H 10/11/21 05:19 Lymph % (Auto) 14.6 % (21.0-51.0) L 10/11/21 05:19 [place] % (Auto) 5.2 % (0.0-13.0) 10/11/21 05:19 Eos % (Auto) 0.6 % (0.9-2.9) L 10/11/21 05:19 Baso % (Auto) 1.4 % (0.2-1.0) H 10/11/21 05:19 Neut # (Auto) 9.1 x10^3/uL (2.2-4.8) H 10/11/21 05:19 Lymph # (Auto) 1.7 X10^3/uL (1.3-2.9) 10/11/21 05:19 Bowman # (Auto) 0.6 x10^3/uL (0.3-0.8) 10/11/21 05:19 Eos # (Auto) 0.1 x10^3/uL (0.0-0.2) 10/11/21 05:19 Baso # (Auto) 0.2 X10^3/uL (0.0-0.1) H 10/11/21 05:19 Absolute Nucleated RBC 0.1 /100WBC 10/11/21 05:19 Plt Clumps, EDTA Rare 10/11/21 05:19 Plt Morphology Comment Normal (NORMAL) 10/11/21 05:19 RBC Morphology Normal (NORMAL) 10/11/21 05:19 Sodium 134 mmol/L (136-145) L 10/11/21 05:19 Corrected Sodium TNP 10/11/21 05:19 Potassium 3.4 mmol/L (3.5-5.1) L 10/11/21 05:19 Chloride 100 mmol/L (98-107) 10/11/21 05:19 Carbon Dioxide 27.6 mmol/L (21-32) 10/11/21 05:19 BUN 9 mg/dL (7-18) 10/11/21 05:19 Creatinine 0.48 mg/dL (0.55-1.02) L 10/11/21 05:19 Est GFR (MDRD) Af Amer > 60 (>60) 10/11/21 05:19 Est GFR (MDRD) Non-Af > 60 (>60) 10/11/21 05:19 Glucose 110 mg/dL (65-99) H 10/11/21 05:19 POC Glucose (mg/dL) 120 mg/dL (65-99) H 10/11/21 05:16 Calcium 8.4 mg/dL (8.5-10.1) L 10/11/21 05:19 Corrected Calcium 9.4 mg/dL (8.5-10.1) 10/11/21 05:19 Magnesium 1.9 mg/dL (1.7-2.9) 10/09/21 04:15 Total Bilirubin 0.30 mg/dL (0.2-1.0) 10/11/21 05:19 AST 25 Units/L (15-37) 10/11/21 05:19 ALT 23 Units/L (12-78) 10/11/21 05:19 Alkaline Phosphatase 109 Units/L (46-116) 10/11/21 05:19 Total Protein 6.2 g/dL (6.4-8.2) L 10/11/21 05:19 Albumin 2.7 g/dL (3.4-5.0) L 10/11/21 05:19 Globulin 3.5 g/dL (2.5-4.5) 10/11/21 05:19 Albumin/Globulin Ratio 0.8 Ratio (1.1-2.1) L 10/11/21 05:19 Specimen Type Catherized urine 10/08/21 08:20 Urine Color Yellow (YELLOW) 10/08/21 08:20 Urine Appearance Clear (CLEAR) 10/08/21 08:20 Urine pH 7.0 (5.0 - 8.0) 10/08/21 08:20 Ur Specific [place] 1.015 (1.000-1.030) 10/08/21 08:20 Urine Protein Negative (NEGATIVE) 10/08/21 08:20 Urine Glucose (UA) Negative (NEGATIVE) 10/08/21 08:20 Urine Ketones 3+ (NEGATIVE) 10/08/21 08:20 Urine Blood Negative (NEGATIVE) 10/08/21 08:20 Urine Nitrite Positive (NEGATIVE) 10/08/21 08:20 Urine Bilirubin Negative (NEGATIVE) 10/08/21 08:20 Urine Urobilinogen Normal (NORMAL) 10/08/21 08:20 Ur Leukocyte Esterase 2+ (NEGATIVE) 10/08/21 08:20 Urine RBC 0-2 /HPF (0-3) 10/08/21 08:20 Urine WBC 20-30 /HPF (0-5) A 10/08/21 08:20 Ur Squamous Epith Cells Rare /HPF (NEGATIVE) 10/08/21 08:20 Ur Transition Epith Cell Rare /HPF (NEGATIVE) 10/08/21 08:20 Amorphous Sediment Trace /HPF (NEGATIVE) 10/08/21 08:20 Urine Bacteria 2+ /HPF (NEGATIVE) 10/08/21 08:20 Ur Culture Indicated? Yes/culture set up 10/08/21 08:20 SARS-CoV-2 (PCR) Negative (NEGATIVE) 10/08/21 09:00 Plan (1) Hypokalemia: Status: Acute Plan: Replaced potassium with sliding scale. (2) Acute UTI: Status: Acute Plan: Patient's urine culture and sensitivity grew out pseudomonas aeruginosa and it was she was started on Cipro yesterday which is the correct antibiotic of choice for this infection. (3) Pubic ramus fracture: Status: Acute Qualifiers: Encounter type: initial encounter Fracture type: closed Laterality: left Qualified Code(s): S32.592A - Other specified fracture of left pubis, initial encounter for closed fracture (4) Abrasion of scalp: Status: Acute Qualifiers: Encounter type: initial encounter Qualified Code(s): S00.01XA - Abrasion of scalp, initial encounter (5) Frequent falls: Status: Acute (6) Dizziness: Status: Acute (7) Unsteady gait: Status: Acute (8) Diabetes mellitus, type 2: Status: Chronic Qualifiers: Diabetes mellitus complication status: with hyperglycemia Diabetes mellitus intermediate school teacher insulin use: with senior living use Qualified Code(s): E11.65 - Type 2 diabetes mellitus with hyperglycemia; Z79.4 - lobsterman (current) use of insulin (9) Essential hypertension: Status: Chronic (10) Hyperlipidemia: Status: Chronic Qualifiers: Hyperlipidemia type: mixed hyperlipidemia Qualified Code(s): E78.2 - Mixed hyperlipidemia
[2021-10-11] MEDS: CYMBALTA PO SCH (20:56)
[2021-10-11] MEDS: ZYLOPRIM PO SCH (20:56)
[2021-10-11] MEDS: ZOCOR TAB 40 MG PO SCH (20:56)
[2021-10-11] MEDS: NORCO 5/325 MG TAB PO PRN (20:57)
[2021-10-12] MEDS: NS 1,000 ML IV 1,000 ML IV SCH ×4 (02:22→22:51)
[2021-10-12 05:16] LABS: BASOPHILS % (AUTO) 0.5 % (0.2-1.0); EOSINOPHILS # (AUTO) 0.1 x10^3/uL (0.0-0.2); EOSINOPHILS % (AUTO) 1.9 % (0.9-2.9); HEMOGLOBIN 11.7 g/dL (12.0-16.0); LYMPHOCYTES # (AUTO) 1.8 X10^3/uL (1.3-2.9); LYMPHOCYTES % (AUTO) 22.8 % (21.0-51.0); MEAN CORPUSCULAR HGB CONC 34.5 g/dL (33.0-35.0); MEAN CORPUSCULAR VOLUME 95.7 fL (80.0-100.0); MEAN PLATELET VOLUME 8.3 fL (7.4-11.0); MONOCYTES # (AUTO) 0.5 x10^3/uL (0.3-0.8); MONOCYTES % (AUTO) 6.6 % (0.0-13.0); NEUTROPHILS # (AUTO) 5.3 x10^3/uL (2.2-4.8); NEUTROPHILS % (AUTO) 68.2 % (42.0-75.0); RED BLOOD COUNT 3.56 X10^6/uL (3.5-5.4); RED CELL DISTRIBUTION WIDTH 15.2 % (11.6-16.5); WHITE BLOOD COUNT 7.8 X10^3/uL (3.6-10.0)
[2021-10-12 05:19] LABS: ALANINE AMINOTRANSFERASE 19 Units/L (12-78); ALBUMIN 2.4 g/dL (3.4-5.0); ALKALINE PHOSPHATASE 100 Units/L (46-116); ASPARTATE AMINO TRANSFERASE 20 Units/L (15-37); BLOOD UREA NITROGEN 11 mg/dL (7-18); CALCIUM 8.5 mg/dL (8.5-10.1); CARBON DIOXIDE 25.9 mmol/L (21-32); CHLORIDE 100 mmol/L (98-107); COR CA(FOR HYPOALB) 9.8 mg/dL (8.5-10.1); CREATININE 0.52 mg/dL (0.55-1.02); MAGNESIUM 1.9 mg/dL (1.7-2.9); SODIUM 131 mmol/L (136-145); TOTAL PROTEIN 5.8 g/dL (6.4-8.2); eGFR NON BLACK RACES > 60 (>60)
[2021-10-12] MEDS: TAB-A-VITE PO SCH (08:09)
[2021-10-12] MEDS: CIPRO IV 400 MG PREMIX* 400 MG/200 ML IV.SOLN. IV SCH ×2 (08:09→20:46)
[2021-10-12] MEDS: COLACE CAP 100 MG PO SCH ×2 (08:09→20:47)
[2021-10-12] MEDS: ANTIVERT TAB 25 MG PO SCH ×2 (08:09→20:46)
[2021-10-12] MEDS: SINGULAIR TAB 10 MG PO SCH (08:09)
[2021-10-12] MEDS: CYMBALTA PO SCH (20:47)
[2021-10-12] MEDS: ZYLOPRIM PO SCH (20:47)
[2021-10-12] MEDS: ZOCOR TAB 40 MG PO SCH (20:47)
--- NOTE | 2021-10-12 20:56 | PCM.PROG ---
Progress Note Progress Note for Day of Date of Exam: 10/12/21 Subjective Subjective: PT IS A 86 YEAR OLD PATIENT PMH INCLUDES ARTHRITIS, DM II, HTN, CHOLECYSTECTOMY, HYSTERECTOMY, LEFT HIP REPLACEMENT, AND KNEE REPLACEMENT, ADMITTED FOR ACUTE CYSTITIS AND FREQUENT FALLS. The patient is resting this morning the bed but she is alert and awake. I reviewed her urine culture and sensitivity and he grew out pseudomonas aeruginosa. It is sensitive to ciprofloxacin with RADHA of less than 1. She is to go to [facility] in 1 day from now for inpatient rehab rehabilitation. Her potassium has normalized at 4.0 this morning. The family member is present this morning and reports to us that she does get a lot of dizziness with standing so I will plan on checking a carotid Doppler ultrasound tomorrow morning. Past Medical Family Social History Past Med/Fam/Surg Hx: No changes since H&P Allergies: Allergies aspirin Allergy (Verified 01/27/17 11:32) fluconazole [From Diflucan] Allergy (Verified 01/27/17 11:08) rofecoxib [From Vioxx] Allergy (Verified 01/27/17 11:08) tizanidine [From Zanaflex] Allergy (Verified 01/27/17 11:08) Review of Systems ROS: No change since H&P Vital Signs and I&O's Vital Signs: Temperature 98.1 F Pulse Rate [Bilateral Radial] 81 Pulse Rate 88 Respiratory Rate 18 Blood Pressure [Right Calf] 136/67 Blood Pressure [Left Calf] 155/63 Blood Pressure [Left Arm] 123/57 Blood Pressure [Right Arm] 131/70 Blood Pressure 130/75 O2 Sat by Pulse Oximetry 95 Intake and Output: Intake & Output 10/10/21 10/11/21 10/12/21 10/13/21 11:59 11:59 11:59 11:59 Intake Total 1614 / 1614 2845 / 2845 2460 / 2460 840 / 840 Balance 1614 / 1614 2845 / 2845 2460 / 2460 840 / 840 Physical Exam Oriented: Time, Person and Place Eyes: Normal Ear: Normal Nose: Normal Throat: Normal Respiratory: Normal Cardiovascular: Normal : Normal Auscultation: Bowel Sounds: Normal Tenderness: Normal Skin: Bruising Musculoskeletal: Left, Hip, Knee, Leg, Swelling (LEFT ANKLE/FOOT TRACE EDEMA ) and Tender Psychiatric: Normal Mood Description: Calm Affect: Normal Speech Pattern: Clear Laboratory and Diagnostics Result Diagrams: 10/12/21 04:45 10/12/21 04:45 Labs: 10/08/21 08:20 Urine,Catheterized Urine Culture - Final Pseudomonas Aeruginosa Laboratory WBC 7.8 X10^3/uL (3.6-10.0) 10/12/21 04:45 RBC 3.56 X10^6/uL (3.5-5.4) 10/12/21 04:45 Hgb 11.7 g/dL (12.0-16.0) L 10/12/21 04:45 Hct 34.0 % (36.0-47.0) L 10/12/21 04:45 MCV 95.7 fL (80.0-100.0) 10/12/21 04:45 MCH 33.0 pg (27.0-34.0) 10/12/21 04:45 MCHC 34.5 g/dL (33.0-35.0) 10/12/21 04:45 RDW 15.2 % (11.6-16.5) 10/12/21 04:45 Plt Count 287 X10^3/uL (150.0-450.0) 10/12/21 04:45 Plt Count Comment Adequate (ADEQUATE) 10/11/21 05:19 MPV 8.3 fL (7.4-11.0) 10/12/21 04:45 Neut % (Auto) 68.2 % (42.0-75.0) 10/12/21 04:45 Lymph % (Auto) 22.8 % (21.0-51.0) 10/12/21 04:45 [place] % (Auto) 6.6 % (0.0-13.0) 10/12/21 04:45 Eos % (Auto) 1.9 % (0.9-2.9) 10/12/21 04:45 Baso % (Auto) 0.5 % (0.2-1.0) 10/12/21 04:45 Neut # (Auto) 5.3 x10^3/uL (2.2-4.8) H 10/12/21 04:45 Lymph # (Auto) 1.8 X10^3/uL (1.3-2.9) 10/12/21 04:45 [place] # (Auto) 0.5 x10^3/uL (0.3-0.8) 10/12/21 04:45 Eos # (Auto) 0.1 x10^3/uL (0.0-0.2) 10/12/21 04:45 Baso # (Auto) 0.0 X10^3/uL (0.0-0.1) 10/12/21 04:45 Absolute Nucleated RBC 0.0 /100WBC 10/12/21 04:45 Plt Clumps, EDTA Rare 10/11/21 05:19 Plt Morphology Comment Normal (NORMAL) 10/11/21 05:19 RBC Morphology Normal (NORMAL) 10/11/21 05:19 Sodium 131 mmol/L (136-145) L 10/12/21 04:45 Corrected Sodium TNP 10/12/21 04:45 Potassium 4.0 mmol/L (3.5-5.1) 10/12/21 04:45 Chloride 100 mmol/L (98-107) 10/12/21 04:45 Carbon Dioxide 25.9 mmol/L (21-32) 10/12/21 04:45 BUN 11 mg/dL (7-18) 10/12/21 04:45 Creatinine 0.52 mg/dL (0.55-1.02) L 10/12/21 04:45 Est GFR (MDRD) Af Amer > 60 (>60) 10/12/21 04:45 Est GFR (MDRD) Non-Af > 60 (>60) 10/12/21 04:45 Glucose 109 mg/dL (65-99) H 10/12/21 04:45 POC Glucose (mg/dL) 145 mg/dL (65-99) H 10/12/21 19:47 Calcium 8.5 mg/dL (8.5-10.1) 10/12/21 04:45 Corrected Calcium 9.8 mg/dL (8.5-10.1) 10/12/21 04:45 Magnesium 1.9 mg/dL (1.7-2.9) 10/12/21 04:45 Total Bilirubin 0.30 mg/dL (0.2-1.0) 10/12/21 04:45 AST 20 Units/L (15-37) 10/12/21 04:45 ALT 19 Units/L (12-78) 10/12/21 04:45 Alkaline Phosphatase 100 Units/L (46-116) 10/12/21 04:45 Total Protein 5.8 g/dL (6.4-8.2) L 10/12/21 04:45 Albumin 2.4 g/dL (3.4-5.0) L 10/12/21 04:45 Globulin 3.4 g/dL (2.5-4.5) 10/12/21 04:45 Albumin/Globulin Ratio 0.7 Ratio (1.1-2.1) L 10/12/21 04:45 Specimen Type Catherized urine 10/08/21 08:20 Urine Color Yellow (YELLOW) 10/08/21 08:20 Urine Appearance Clear (CLEAR) 10/08/21 08:20 Urine pH 7.0 (5.0 - 8.0) 10/08/21 08:20 Ur Specific [place] 1.015 (1.000-1.030) 10/08/21 08:20 Urine Protein Negative (NEGATIVE) 10/08/21 08:20 Urine Glucose (UA) Negative (NEGATIVE) 10/08/21 08:20 Urine Ketones 3+ (NEGATIVE) 10/08/21 08:20 Urine Blood Negative (NEGATIVE) 10/08/21 08:20 Urine Nitrite Positive (NEGATIVE) 10/08/21 08:20 Urine Bilirubin Negative (NEGATIVE) 10/08/21 08:20 Urine Urobilinogen Normal (NORMAL) 10/08/21 08:20 Ur Leukocyte Esterase 2+ (NEGATIVE) 10/08/21 08:20 Urine RBC 0-2 /HPF (0-3) 10/08/21 08:20 Urine WBC 20-30 /HPF (0-5) A 10/08/21 08:20 Ur Squamous Epith Cells Rare /HPF (NEGATIVE) 10/08/21 08:20 Ur Transition Epith Cell Rare /HPF (NEGATIVE) 10/08/21 08:20 Amorphous Sediment Trace /HPF (NEGATIVE) 10/08/21 08:20 Urine Bacteria 2+ /HPF (NEGATIVE) 10/08/21 08:20 Ur Culture Indicated? Yes/culture set up 10/08/21 08:20 SARS-CoV-2 (PCR) Negative (NEGATIVE) 04/20/22 09:00 Plan (1) Dizziness on standing: Status: Acute Plan: Check bilateral carotid Doppler ultrasound tomorrow morning. (2) Hypokalemia: Status: Acute Plan: Replaced potassium with sliding scale. (3) Acute UTI: Status: Acute Plan: Patient's urine culture and sensitivity grew out pseudomonas aeruginosa and it was she was started on Cipro yesterday which is the correct antibiotic of choice for this infection. (4) Pubic ramus fracture: Status: Acute Qualifiers: Encounter type: initial encounter Fracture type: closed Laterality: left Qualified Code(s): S32.592A - Other specified fracture of left pubis, initial encounter for closed fracture (5) Abrasion of scalp: Status: Acute Qualifiers: Encounter type: initial encounter Qualified Code(s): S00.01XA - Abrasion of scalp, initial encounter (6) Frequent falls: Status: Acute (7) Dizziness: Status: Acute (8) Unsteady gait: Status: Acute (9) Diabetes mellitus, type 2: Status: Chronic Qualifiers: Diabetes mellitus superintendent marine oil terminal insulin use: with prison use Diabetes mellitus complication status: with hyperglycemia Qualified Code(s): E11.65 - Type 2 diabetes mellitus with hyperglycemia; Z79.4 - superintendent marine [employer] (current) use of insulin (10) Essential hypertension: Status: Chronic (11) Hyperlipidemia: Status: Chronic Qualifiers: Hyperlipidemia type: mixed hyperlipidemia Qualified Code(s): E78.2 - Mixed hyperlipidemia
[2021-10-13 05:30] LABS: BASOPHILS % (AUTO) 0.6 % (0.2-1.0); EOSINOPHILS # (AUTO) 0.2 x10^3/uL (0.0-0.2); EOSINOPHILS % (AUTO) 2.7 % (0.9-2.9); HEMATOCRIT 34.6 % (36.0-47.0); HEMOGLOBIN 11.9 g/dL (12.0-16.0); LYMPHOCYTES # (AUTO) 1.7 X10^3/uL (1.3-2.9); LYMPHOCYTES % (AUTO) 23.8 % (21.0-51.0); MEAN CORPUSCULAR HEMOGLOBIN 32.9 pg (27.0-34.0); MEAN CORPUSCULAR HGB CONC 34.3 g/dL (33.0-35.0); MEAN CORPUSCULAR VOLUME 95.9 fL (80.0-100.0); MONOCYTES # (AUTO) 0.6 x10^3/uL (0.3-0.8); MONOCYTES % (AUTO) 8.3 % (0.0-13.0); NEUTROPHILS # (AUTO) 4.5 x10^3/uL (2.2-4.8); NEUTROPHILS % (AUTO) 64.6 % (42.0-75.0); RED BLOOD COUNT 3.61 X10^6/uL (3.5-5.4)
[2021-10-13] MEDS: NS 1,000 ML IV 1,000 ML IV SCH ×2 (05:33→10:07)
[2021-10-13 05:41] LABS: ALANINE AMINOTRANSFERASE 20 Units/L (12-78); ALBUMIN 2.3 g/dL (3.4-5.0); ALKALINE PHOSPHATASE 100 Units/L (46-116); ASPARTATE AMINO TRANSFERASE 21 Units/L (15-37); BLOOD UREA NITROGEN 8 mg/dL (7-18); CALCIUM 8.3 mg/dL (8.5-10.1); CARBON DIOXIDE 24.9 mmol/L (21-32); CHLORIDE 102 mmol/L (98-107); COR CA(FOR HYPOALB) 9.7 mg/dL (8.5-10.1); CREATININE 0.44 mg/dL (0.55-1.02); SODIUM 135 mmol/L (136-145); TOTAL PROTEIN 5.8 g/dL (6.4-8.2); eGFR NON BLACK RACES > 60 (>60)
[2021-10-13 07:55] VITALS: BP 142/68
[2021-10-13] MEDS: COLACE CAP 100 MG PO SCH (08:59)
[2021-10-13] MEDS: ANTIVERT TAB 25 MG PO SCH (08:59)
[2021-10-13] MEDS: TAB-A-VITE PO SCH (08:59)
[2021-10-13] MEDS: CIPRO IV 400 MG PREMIX* 400 MG/200 ML IV.SOLN. IV SCH (08:59)
[2021-10-13] MEDS: SINGULAIR TAB 10 MG PO SCH (08:59)
--- NOTE | 2021-10-13 09:09 | MRI ---
BRAIN W/O CONCLINICAL INDICATION: [place], recent cva, falls, weaknessTECHNIQUE: Pre-contrast T1-w, T2, and diffusion-w sequences of the brain with ADC maps.COMPARISON:CT October 08, 2021FINDINGS:Diffuse patchy and confluent periventricular and subcortical T2/FLAIR signal with associated volume loss . There is no mass or mass-effect, or abnormal extra-axial fluid collection . Diffusion imaging shows no hyperacute, acute, or early subacute infarction . Age-related, ex-vacuo dilatation of the ventricles and sulci . There are normal signal voids in the larger intracranial vessels . The paranasal sinuses and mastoid air cells are predominantly clear . The marrow signal pattern is within normal limits .IMPRESSION:1.No acute intracranial abnormality. Chronic microangiopathic changes and ex vacuo dilatation of the ventricles and sulci.Electronically signed by: KATERYNA MATUTE (Oct 13, 2021 09:09:00)
--- NOTE | 2021-10-13 09:29 | VAS ---
HISTORYCHRONIC DIZZINESSConcern for carotid artery stenosis.EXAM: BILATERAL DOPPLER CAROTID ULTRASOUND EXAMTechnique: Multiple [place] scale and color flow Doppler images of the right and left carotid arterial system were obtained.The vertebral arterial system was evaluated as well.Findings: Nonocclusive color flow Doppler is seen throughout the right and left carotid arterial system. No hemodynamically significant carotid arterial stenosis is seen based on velocity criteria. There is mild bilateral carotid atherosclerosis and mixed atherosclerotic plaque formation of the bilateral carotid bulbs and ICAs with associated intimal thickening but without evidence for high-grade stenosis (>70%) or occlusion of the carotid arteries. The right and left vertebral artery demonstrate antegrade flow.IMPRESSION:Mild bilateral carotid atherosclerosis and mixed atherosclerotic plaque formation of the bilateral carotid bulbs and [in both] ICAs with associated carotid intimal thickening but without evidence for high-grade stenosis or occlusion of the carotid arteries, based on Doppler velocity criteria.Appropriate, antegrade, vertebral arterial flow.Peak right ICA velocity: 55 centimeter/seconds.Peak right CCA velocity: 55 centimeter/seconds.Peak left ICA velocity: 70 centimeter/seconds.Peak left CCA velocity: 70 centimeter/seconds.Right ICA to CCA ratio: 0.9.Left ICA to CCA ratio: 1.0.Electronically signed by: JANETH SON III (Oct 13, 2021 09:28:18)
--- NOTE | 2021-10-20 12:34 | PCM.PROG ---
Progress Note - Progress Note for Day of Date of Exam: 10/09/21 - Subjective Subjective: IS CURRENTLY OBSERVATION STATUS FOR TREATMENT OF ACUTE UTI, PUBIC RAMUS FX, FREQUENT FALLS, DIZZINESS, UNSTEADY GAIT, ABRASION OF SCALP. PMH OF DM II, HTN, HYPERLIPIDEMIA. TODAY, SHE IS ALERT AND ORIENTED, LYING IN BED ON MORNING ROUNDS. SHE CONTINUES WITH COMPLAINTS OF HEADACHE, D IZZINESS, AND GENERALIZED WEAKNESS. ON EXAMINATION, HEART IS REGULAR IN RATE AND RHYTHM. BILATERAL LUNGS NOTED WITH DIMINISHE LUNG SOUNDS THROUGHOUT. ABDOMEN IS ROUND, SOFT, AND NON-TENDER WITH NORMAL BOWEL SOUNDS NOTED IN ALL QUADRANTS. SCATTERED BRUISING NOTED. SUPERFICIAL ABRASION NTOED TO THE LEFT POSTERIOR SCALP. THREE SMALL STAGE 1 ULCERS NOTED TO BUTTOCKS. TENDERNESS TO LEFT HIP NOTED. LEFT LATERAL MALLEOLOUS SWELLING AND TENDERNESS NOTED. HER VITALS THIS MORNING ARE: 97.8-88-20-92%RA-127/60. LABS WERE OBTAINED. WBC 6.3, RBC 3.60, HGB 12.1, HCT 34.6, SODIUM 135, POTASSIUM 3.5, BUN 6, CREATININE 0.53, GLUCOSE 96, CALCIUM 8.2, TOTAL PROTEIN 5.9, ALBUMIN 2.6. URINE CULTURE IS PENDING. SHE IS CURRENTLY RECEIVING NORMAL SALINE AT 75 ML/HR, ROCEPHIN 1G IM DAILY, THE POTASSIUM AND MAGNESIUM PROTOCOLS, MORPHINE 2MG IV Q4H PRN, OTBS ACHS, AND HER HOME MEDICATIONS WERE RESUMED. TODAY, WE WILL OBTAIN A BRAIN MRI WITHOUT CONTRAST TO FURTHER ASSESS FOR CVA. OTHERWISE, WE PLAN TO FOLLOW UP WITH AM LABS AND CONTINUE TO MONITOR. WE WILL HAVE PT EVALUATE PATIENT. TIME SPENT ON CLINICAL ASSESSMENT, REVIEWING LABS AND IMAGING, DECISION MAKING, AND DOCUMENTATION GREATER THAN 45 MINUTES. - Past Medical Family Social History Past Med/Fam/Surg Hx: No changes since H&P Allergies: Allergies aspirin Allergy (Verified 01/27/17 11:32) fluconazole [From Diflucan] Allergy (Verified 01/27/17 11:08) rofecoxib [From Vioxx] Allergy (Verified 01/27/17 11:08) tizanidine [From Zanaflex] Allergy (Verified 01/27/17 11:08) - Review of Systems ROS: No change since H&P - Vital Signs and I&O's Vital Signs: Temperature 98.3 F Pulse Rate [Bilateral Radial] 91 Pulse Rate 88 Respiratory Rate 20 Blood Pressure [Right Calf] 136/67 Blood Pressure [Left Calf] 155/63 Blood Pressure [Left Arm] 142/68 Blood Pressure [Right Arm] 131/70 Blood Pressure 130/75 O2 Sat by Pulse Oximetry 98 - Physical Exam Oriented: Time, Person, Place Eyes: Normal Ear: Normal Nose: Normal Throat: Normal Respiratory: Normal Cardiovascular: Normal : Normal Auscultation: Bowel Sounds: Normal Tenderness: Normal Skin: Bruising Musculoskeletal: Left, Hip, Knee, Leg, Swelling (LEFT ANKLE/FOOT TRACE EDEMA), Tender Psychiatric: Normal Mood Description: Calm Affect: Normal Speech Pattern: Clear - Laboratory and Diagnostics Result Diagrams: 10/13/21 05:07 10/13/21 05:07 Labs: 10/08/21 08:20 Urine,Catheterized Urine Culture - Final Pseudomonas Aeruginosa Laboratory WBC 7.0 X10^3/uL (3.6-10.0) 10/13/21 05:07 RBC 3.61 X10^6/uL (3.5-5.4) 10/13/21 05:07 Hgb 11.9 g/dL (12.0-16.0) L 10/13/21 05:07 Hct 34.6 % (36.0-47.0) L 10/13/21 05:07 MCV 95.9 fL (80.0-100.0) 10/13/21 05:07 MCH 32.9 pg (27.0-34.0) 10/13/21 05:07 MCHC 34.3 g/dL (33.0-35.0) 10/13/21 05:07 RDW 15.0 % (11.6-16.5) 10/13/21 05:07 Plt Count 264 X10^3/uL (150.0-450.0) 10/13/21 05:07 Plt Count Comment Adequate (ADEQUATE) 10/11/21 05:19 MPV 8.0 fL (7.4-11.0) 10/13/21 05:07 Neut % (Auto) 64.6 % (42.0-75.0) 10/13/21 05:07 Lymph % (Auto) 23.8 % (21.0-51.0) 10/13/21 05:07 [place] % (Auto) 8.3 % (0.0-13.0) 10/13/21 05:07 Eos % (Auto) 2.7 % (0.9-2.9) 10/13/21 05:07 Baso % (Auto) 0.6 % (0.2-1.0) 10/13/21 05:07 Neut # (Auto) 4.5 x10^3/uL (2.2-4.8) 10/13/21 05:07 Lymph # (Auto) 1.7 X10^3/uL (1.3-2.9) 10/13/21 05:07 [place] # (Auto) 0.6 x10^3/uL (0.3-0.8) 10/13/21 05:07 Eos # (Auto) 0.2 x10^3/uL (0.0-0.2) 10/13/21 05:07 Baso # (Auto) 0.0 X10^3/uL (0.0-0.1) 10/13/21 05:07 Absolute Nucleated RBC 0.0 /100WBC 10/13/21 05:07 Plt Clumps, EDTA Rare 10/11/21 05:19 Plt Morphology Comment Normal (NORMAL) 10/11/21 05:19 RBC Morphology Normal (NORMAL) 10/11/21 05:19 Sodium 135 mmol/L (136-145) L 10/13/21 05:07 Corrected Sodium TNP 10/13/21 05:07 Potassium 3.6 mmol/L (3.5-5.1) 10/13/21 05:07 Chloride 102 mmol/L (98-107) 10/13/21 05:07 Carbon Dioxide 24.9 mmol/L (21-32) 10/13/21 05:07 BUN 8 mg/dL (7-18) 10/13/21 05:07 Creatinine 0.44 mg/dL (0.55-1.02) L 10/13/21 05:07 Est GFR (MDRD) Af Amer > 60 (>60) 10/13/21 05:07 Est GFR (MDRD) Non-Af > 60 (>60) 10/13/21 05:07 Glucose 104 mg/dL (65-99) H 10/13/21 05:07 POC Glucose (mg/dL) 117 mg/dL (65-99) H 10/13/21 11:19 Calcium 8.3 mg/dL (8.5-10.1) L 10/13/21 05:07 Corrected Calcium 9.7 mg/dL (8.5-10.1) 10/13/21 05:07 Magnesium 1.9 mg/dL (1.7-2.9) 10/12/21 04:45 Total Bilirubin 0.40 mg/dL (0.2-1.0) 10/13/21 05:07 AST 21 Units/L (15-37) 10/13/21 05:07 ALT 20 Units/L (12-78) 10/13/21 05:07 Alkaline Phosphatase 100 Units/L (46-116) 10/13/21 05:07 Total Protein 5.8 g/dL (6.4-8.2) L 10/13/21 05:07 Albumin 2.3 g/dL (3.4-5.0) L 10/13/21 05:07 Globulin 3.5 g/dL (2.5-4.5) 10/13/21 05:07 Albumin/Globulin Ratio 0.7 Ratio (1.1-2.1) L 10/13/21 05:07 Specimen Type Catherized urine 10/08/21 08:20 Urine Color Yellow (YELLOW) 10/08/21 08:20 Urine Appearance Clear (CLEAR) 10/08/21 08:20 Urine pH 7.0 (5.0 - 8.0) 10/08/21 08:20 Ur Specific [place] 1.015 (1.000-1.030) 10/08/21 08:20 Urine Protein Negative (NEGATIVE) 10/08/21 08:20 Urine Glucose (UA) Negative (NEGATIVE) 10/08/21 08:20 Urine Ketones 3+ (NEGATIVE) 10/08/21 08:20 Urine Blood Negative (NEGATIVE) 10/08/21 08:20 Urine Nitrite Positive (NEGATIVE) 10/08/21 08:20 Urine Bilirubin Negative (NEGATIVE) 10/08/21 08:20 Urine Urobilinogen Normal (NORMAL) 10/08/21 08:20 Ur Leukocyte Esterase 2+ (NEGATIVE) 10/08/21 08:20 Urine RBC 0-2 /HPF (0-3) 10/08/21 08:20 Urine WBC 20-30 /HPF (0-5) A 10/08/21 08:20 Ur Squamous Epith Cells Rare /HPF (NEGATIVE) 10/08/21 08:20 Ur Transition Epith Cell Rare /HPF (NEGATIVE) 10/08/21 08:20 Amorphous Sediment Trace /HPF (NEGATIVE) 10/08/21 08:20 Urine Bacteria 2+ /HPF (NEGATIVE) 10/08/21 08:20 Ur Culture Indicated? Yes/culture set up 10/08/21 08:20 SARS-CoV-2 (PCR) Negative (NEGATIVE) 10/08/21 09:00 - Plan (1) Acute UTI Status: Acute Plan: NORMAL SALINE AT 75 ML/HR, ROCEPHIN 1G IM DAILY, THE POTASSIUM AND MA GNESIUM PROTOCOLS, MORPHINE 2MG IV Q4H PRN, OTBS ACHS, AND HER HOME MEDICATIONS WERE RESUMED. URINE CULTURE PENDING (2) Pubic ramus fracture Status: Acute Qualifiers: Encounter type: initial encounter Fracture type: closed Laterality: left Qualified Code(s): S32.592A - Other specified fracture of left pubis, initial encounter for closed fracture Plan: PT/OT, PAIN CONTROL (3) Abrasion of scalp Status: Acute Qualifiers: Encounter type: initial encounter Qualified Code(s): S00.01XA - Abrasion of scalp, initial encounter (4) Frequent falls Status: Acute (5) Dizziness Status: Acute Plan: OBTAIN BRAIN MRI (6) Unsteady gait Status: Acute (7) Diabetes mellitus, type 2 Status: Chronic Qualifiers: Diabetes mellitus usp insulin use: with usp use Diabetes mellitus complication status: with hyperglycemia Qualified Code(s): E11.65 - Type 2 diabetes mellitus with hyperglycemia; Z79.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
== END 2021-10-13 11:50 | DRG 690 ==
LOC: ER 06:45 → MED/SURG 06:45
PROVIDERS: ADMIT Internal Medicine; ATTEND Internal Medicine
DX: Z20.822 Contact with and (suspected) exposure to COVID-19; Z79.4 Long term (current) use of insulin; R26.81 Unsteadiness on feet; R29.6 Repeated falls; I10 Essential (primary) hypertension; M25.562 Pain in left knee; E87.6 Hypokalemia; Y92.9 Unspecified place or not applicable; E11.622 Type 2 diabetes mellitus with other skin ulcer; N39.0 Urinary tract infection, site not specified; S32.592A Other specified fracture of left pubis, initial encounter for closed fracture; E78.2 Mixed hyperlipidemia; L98.419 Non-pressure chronic ulcer of buttock with unspecified severity; N17.8 Other acute kidney failure; Z96.642 Presence of left artificial hip joint; E11.65 Type 2 diabetes mellitus with hyperglycemia; S00.01XA Abrasion of scalp, initial encounter; M25.572 Pain in left ankle and joints of left foot; B96.5 Pseudomonas (aeruginosa) (mallei) (pseudomallei) as the cause of diseases classified elsewhere; Z96.652 Presence of left artificial knee joint; R51.9 Headache, unspecified; R42 Dizziness and giddiness; W18.39XA Other fall on same level, initial encounter

== ENCOUNTER 2023-02-02 12:21 | Inpatient (IN) ==
[2023-02-02 15:23] VITALS: BMI 27.6
[2023-02-02] MEDS ORDERED: NS 1/2 1,000 ML IV 1,000 ML IV ONE (16:05)
[2023-02-02] MEDS: NS 1/2 1,000 ML IV 1,000 ML IV SCH (16:20)
[2023-02-02 16:28] LABS: BASOPHILS # (AUTO) 0.1 X10^3/uL (0.0-0.1); BASOPHILS % (AUTO) 1.3 % (0.2-1.0); EOSINOPHILS # (AUTO) 0.1 x10^3/uL (0.0-0.2); EOSINOPHILS % (AUTO) 1.6 % (0.9-2.9); HEMATOCRIT 35.3 % (36.0-47.0); LYMPHOCYTES # (AUTO) 2.3 X10^3/uL (1.3-2.9); LYMPHOCYTES % (AUTO) 31.6 % (21.0-51.0); MEAN CORPUSCULAR HEMOGLOBIN 32.1 pg (27.0-34.0); MEAN CORPUSCULAR HGB CONC 33.9 g/dL (33.0-35.0); MEAN CORPUSCULAR VOLUME 94.6 fL (80.0-100.0); MEAN PLATELET VOLUME 8.4 fL (7.4-11.0); MONOCYTES # (AUTO) 0.5 x10^3/uL (0.3-0.8); MONOCYTES % (AUTO) 6.9 % (0.0-13.0); NEUTROPHILS # (AUTO) 4.3 x10^3/uL (2.2-4.8); NEUTROPHILS % (AUTO) 58.6 % (42.0-75.0); PLATELET COUNT 304 X10^3/uL (150.0-450.0); RED BLOOD COUNT 3.73 X10^6/uL (3.5-5.4); RED CELL DISTRIBUTION WIDTH 15.8 % (11.6-16.5); WHITE BLOOD COUNT 7.4 X10^3/uL (3.6-10.0)
[2023-02-02 16:34] LABS: ALANINE AMINOTRANSFERASE 20 Units/L (12-78); ALBUMIN 3.3 g/dL (3.4-5.0); ALKALINE PHOSPHATASE 130 Units/L (46-116); ASPARTATE AMINO TRANSFERASE 24 Units/L (15-37); BLOOD UREA NITROGEN 16 mg/dL (7-18); CALCIUM 8.8 mg/dL (8.5-10.1); CARBON DIOXIDE 29.6 mmol/L (21-32); CHLORIDE 100 mmol/L (98-107); COR CA(FOR HYPOALB) 9.4 mg/dL (8.5-10.1); CREATININE 0.71 mg/dL (0.55-1.02); GLUCOSE 105 mg/dL (65-99); POTASSIUM 3.8 mmol/L (3.5-5.1); SODIUM 137 mmol/L (136-145); TOTAL PROTEIN 6.7 g/dL (6.4-8.2); eGFR NON BLACK RACES > 60 (>60)
[2023-02-02] MEDS ORDERED: ZYLOPRIM PO SCH (21:00)
[2023-02-02] MEDS ORDERED: SIMVASTATIN 80 MG PO SCH (21:00)
[2023-02-02] MEDS: CYMBALTA PO SCH (21:37)
[2023-02-02] MEDS: ZOCOR TAB 40 MG PO SCH (21:37)
[2023-02-02] MEDS: COLACE CAP 100 MG PO SCH (21:37)
[2023-02-02] MEDS: ZYLOPRIM PO SCH (21:37)
[2023-02-02 21:58] LABS: BILIRUBIN,URINE NEGATIVE (NEGATIVE); BLOOD/HEMOGLOBIN,URINE 1+ (NEGATIVE); GLUCOSE, URINE NEGATIVE (NEGATIVE); KETONES,URINE NEGATIVE (NEGATIVE); LEUKOCYTE ESTERASE ,URINE 3+ (NEGATIVE); NITRITES,URINE POSITIVE (NEGATIVE); PROTEIN,URINE 1+ (NEGATIVE); UROBILINOGEN,URINE NORMAL (NORMAL)
[2023-02-02 22:08] LABS: APPEARANCE,URINE CLOUDY (CLEAR); BACTERIA,URINE 4+ /HPF (NEGATIVE); COLOR,URINE YELLOW (YELLOW); SQUAMOUS EPITHELIAL CELL,UR MODERATE /HPF (NEGATIVE)
[2023-02-03 06:27] LABS: BASOPHILS # (AUTO) 0.1 X10^3/uL (0.0-0.1); BASOPHILS % (AUTO) 1.1 % (0.2-1.0); EOSINOPHILS # (AUTO) 0.3 x10^3/uL (0.0-0.2); EOSINOPHILS % (AUTO) 4.4 % (0.9-2.9); HEMATOCRIT 33.2 % (36.0-47.0); HEMOGLOBIN 11.1 g/dL (12.0-16.0); LYMPHOCYTES # (AUTO) 2.6 X10^3/uL (1.3-2.9); MEAN CORPUSCULAR HEMOGLOBIN 31.7 pg (27.0-34.0); MEAN CORPUSCULAR HGB CONC 33.5 g/dL (33.0-35.0); MEAN CORPUSCULAR VOLUME 94.6 fL (80.0-100.0); MEAN PLATELET VOLUME 8.5 fL (7.4-11.0); MONOCYTES # (AUTO) 0.6 x10^3/uL (0.3-0.8); MONOCYTES % (AUTO) 9.8 % (0.0-13.0); NEUTROPHILS # (AUTO) 2.8 x10^3/uL (2.2-4.8); NEUTROPHILS % (AUTO) 43.7 % (42.0-75.0); PLATELET COUNT 292 X10^3/uL (150.0-450.0); RED BLOOD COUNT 3.51 X10^6/uL (3.5-5.4); RED CELL DISTRIBUTION WIDTH 15.8 % (11.6-16.5); WHITE BLOOD COUNT 6.4 X10^3/uL (3.6-10.0)
[2023-02-03 06:39] LABS: ALANINE AMINOTRANSFERASE 16 Units/L (12-78); ALBUMIN 2.9 g/dL (3.4-5.0); ALKALINE PHOSPHATASE 115 Units/L (46-116); ASPARTATE AMINO TRANSFERASE 24 Units/L (15-37); BLOOD UREA NITROGEN 18 mg/dL (7-18); CALCIUM 8.6 mg/dL (8.5-10.1); CARBON DIOXIDE 26.5 mmol/L (21-32); CHLORIDE 100 mmol/L (98-107); COR CA(FOR HYPOALB) 9.5 mg/dL (8.5-10.1); CREATININE 0.72 mg/dL (0.55-1.02); GLUCOSE 100 mg/dL (65-99); POTASSIUM 3.9 mmol/L (3.5-5.1); SODIUM 135 mmol/L (136-145); TOTAL PROTEIN 6.1 g/dL (6.4-8.2); eGFR NON BLACK RACES > 60 (>60)
[2023-02-03] MEDS ORDERED: CONSULT PHARMACY - POTASSIUM & MAGNESIUM XX SCH (07:00)
[2023-02-03] MEDS ORDERED: PATIENT'S HOME MEDICATION (Cholecalciferol (Vitamin D3) [Vitamin D3] 50 mcg (2,000 unit) C PO SCH (09:00)
[2023-02-03] MEDS ORDERED: ASCORBATE CALCIUM 500 MG PO SCH (09:00)
[2023-02-03] MEDS ORDERED: MULTIVITAMIN IRON FOLIC ACID PO SCH (09:00)
[2023-02-03] MEDS: LOVENOX INJ 40 MG SYR SC SCH (09:43)
[2023-02-03] MEDS: VITAMIN D3 25 mcg (1,000 UNITS) PO SCH (09:44)
[2023-02-03] MEDS: VITAMIN C PO SCH (09:44)
[2023-02-03] MEDS: NORVASC TAB 10 MG PO SCH (09:44)
[2023-02-03] MEDS: TAB-A-VITE PO SCH (09:44)
[2023-02-03] MEDS: SINGULAIR TAB 10 MG PO SCH (09:44)
[2023-02-03] MEDS: LIORESAL PO SCH ×2 (09:45→16:42)
[2023-02-03] MEDS: COLACE CAP 100 MG PO SCH ×2 (09:45→20:34)
--- NOTE | 2023-02-03 10:47 | DR.H&P ---
H&P History & Physical for Day of: H&P Date: 02/02/23 Chief Complaint Chief Complaint: Unable to ambulate and get around on her own accord. Allergies Allergies Allergy/AdvReac Type Severity Reaction Status Date / Time aspirin Allergy Unknown Verified 11/03/22 09:29 fluconazole [From Diflucan] Allergy Verified 11/03/22 09:29 rofecoxib [From Vioxx] Allergy Verified 11/03/22 09:29 tizanidine [From Zanaflex] Allergy Verified 11/03/22 09:29 History of Present Illness History of Present Illness: This is a pleasant 87-year-old white female well- known to me. Her daughter called yesterday and said that she is at her wits in. She is having great difficulty in taking care of her mother who had a fall last week and strained her right groin. Since then she has been in a fair amount of pain and does not tolerate any opioid pain medicine. We have decided that the patient would benefit from temporary inpatient correction rehabilitation so they can help her get back to where she can help ambulate to the bed and toilet when she is at home. In order to do that we need to keep her in the hospital for 3 days and they will facilitate a transfer to [facility] with inpatient rehab. Currently she is stable and is reporting pain in the right groin. I saw her last week in the office about this however she is no better. Past Medical History Past Medical History: Arthritis, Diabetes and Hypertension Additional Medical History: [place] UTI's Past Surgical History Surgical History: Cholecystectomy, Hysterectomy, Joint Replacement and Ortho Surgery Family History Family Medical History: Diabetes Mellitus, Cancer and Hypertension Social History Does patient currently use any type of tobacco product: No Have you used tobacco products in the last 12 months: No Type of Tobacco Use: None Does any household member use tobacco: No Alcohol Use: None Medications Home Medications: Home Medications Medication Instructions Recorded Confirmed Type allopurinol 300 mg tablet 100 mg PO HS 04/28/18 02/02/23 History amlodipine 10 mg tablet 5 mg PO DAILY 04/28/18 02/02/23 History montelukast 10 mg tablet 10 mg PO DAILY 05/02/18 02/02/23 History gabapentin 300 mg capsule 300 mg PO HS PRN 08/25/21 02/02/23 History ascorbate calcium (vitamin C) 500 500 mg PO DAILY 02/02/23 02/02/23 History mg capsule cholecalciferol (vitamin D3) 50 50 mcg PO DAILY 02/02/23 02/02/23 History mcg (2,000 unit) capsule (Vitamin D3) cranberry 500 mg capsule 500 mg PO WEEKLY 02/02/23 02/02/23 History multivitamin-ferrous 1 tab PO DAILY 02/02/23 02/02/23 History fumarate-folic acid 18 mg-400 mcg tablet ([facility]) vitamin E 100 unit tablet 180 unit PO HS 02/02/23 02/02/23 History Labs 02/03/23 05:16 02/03/23 05:16 Labs: 02/02/23 21:44 Urine,Clean Catch Urine Culture - Preliminary Laboratory WBC 6.4 X10^3/uL (3.6-10.0) 02/03/23 05:16 RBC 3.51 X10^6/uL (3.5-5.4) 02/03/23 05:16 Hgb 11.1 g/dL (12.0-16.0) L 02/03/23 05:16 Hct 33.2 % (36.0-47.0) L 02/03/23 05:16 MCV 94.6 fL (80.0-100.0) 02/03/23 05:16 MCH 31.7 pg (27.0-34.0) 02/03/23 05:16 MCHC 33.5 g/dL (33.0-35.0) 02/03/23 05:16 RDW 15.8 % (11.6-16.5) 02/03/23 05:16 Plt Count 292 X10^3/uL (150.0-450.0) 02/03/23 05:16 MPV 8.5 fL (7.4-11.0) 02/03/23 05:16 Neut % (Auto) 43.7 % (42.0-75.0) 02/03/23 05:16 Lymph % (Auto) 41.0 % (21.0-51.0) 02/03/23 05:16 [place] % (Auto) 9.8 % (0.0-13.0) 02/03/23 05:16 Eos % (Auto) 4.4 % (0.9-2.9) H 02/03/23 05:16 Baso % (Auto) 1.1 % (0.2-1.0) H 02/03/23 05:16 Neut # (Auto) 2.8 x10^3/uL (2.2-4.8) 02/03/23 05:16 Lymph # (Auto) 2.6 X10^3/uL (1.3-2.9) 02/03/23 05:16 [place] # (Auto) 0.6 x10^3/uL (0.3-0.8) 02/03/23 05:16 Eos # (Auto) 0.3 x10^3/uL (0.0-0.2) H 02/03/23 05:16 Baso # (Auto) 0.1 X10^3/uL (0.0-0.1) 02/03/23 05:16 Absolute Nucleated RBC 0.0 /100WBC 02/03/23 05:16 Sodium 135 mmol/L (136-145) L 02/03/23 05:16 Corrected Sodium TNP 02/03/23 05:16 Potassium 3.9 mmol/L (3.5-5.1) 02/03/23 05:16 Chloride 100 mmol/L (98-107) 02/03/23 05:16 Carbon Dioxide 26.5 mmol/L (21-32) 02/03/23 05:16 BUN 18 mg/dL (7-18) 02/03/23 05:16 Creatinine 0.72 mg/dL (0.55-1.02) 02/03/23 05:16 Est GFR (MDRD) Af Amer > 60 (>60) 02/03/23 05:16 Est GFR (MDRD) Non-Af > 60 (>60) 02/03/23 05:16 Glucose 100 mg/dL (65-99) H 02/03/23 05:16 Calcium 8.6 mg/dL (8.5-10.1) 02/03/23 05:16 Corrected Calcium 9.5 mg/dL (8.5-10.1) 02/03/23 05:16 Magnesium 2.0 mg/dL (2.0-2.9) 02/02/23 15:43 Total Bilirubin 0.30 mg/dL (0.2-1.0) 02/03/23 05:16 AST 24 Units/L (15-37) 02/03/23 05:16 ALT 16 Units/L (12-78) 02/03/23 05:16 Alkaline Phosphatase 115 Units/L (46-116) 02/03/23 05:16 Total Protein 6.1 g/dL (6.4-8.2) L 02/03/23 05:16 Albumin 2.9 g/dL (3.4-5.0) L 02/03/23 05:16 Globulin 3.2 g/dL (2.5-4.5) 02/03/23 05:16 Albumin/Globulin Ratio 0.9 Ratio (1.1-2.1) L 02/03/23 05:16 Specimen Type Clean catch urine 02/02/23 21:44 Urine Color Yellow (YELLOW) 02/02/23 21:44 Urine Appearance Cloudy (CLEAR) 02/02/23 21:44 Urine pH 7.0 (5.0 - 8.0) 02/02/23 21:44 Ur Specific [place] 1.015 (1.000-1.030) 02/02/23 21:44 Urine Protein 1+ (NEGATIVE) 02/02/23 21:44 Urine Glucose (UA) Negative (NEGATIVE) 02/02/23 21:44 Urine Ketones Negative (NEGATIVE) 02/02/23 21:44 Urine Blood 1+ (NEGATIVE) 02/02/23 21:44 Urine Nitrite Positive (NEGATIVE) 02/02/23 21:44 Urine Bilirubin Negative (NEGATIVE) 02/02/23 21:44 Urine Urobilinogen Normal (NORMAL) 02/02/23 21:44 Ur Leukocyte Esterase 3+ (NEGATIVE) 02/02/23 21:44 Urine RBC 3-5 /HPF (0-3) A 02/02/23 21:44 Urine WBC 5-10 /HPF (0-5) A 02/02/23 21:44 Ur Squamous Epith Cells Moderate /HPF (NEGATIVE) 02/02/23 21:44 Urine Bacteria 4+ /HPF (NEGATIVE) 02/02/23 21:44 Ur Culture Indicated? Yes/culture set up 02/02/23 21:44 Review of Systems Constitutional: Weakness Eyes: No Symptoms Reported ENT: No Symptoms Reported Respiratory: No Symptoms Reported Cardiovascular: No Symptoms Reported Gastrointestinal: No Symptoms Reported Genitourinary: No Symptoms Reported Musculoskeletal: Other (Right groin pain) Skin: No Symptoms Reported Neurological: No Symptoms Reported Physical Exam Vital Signs: Vital Signs Temperature 98.1 F Temperature 98.7 F Pulse Rate [Bilateral Radial] 79 Pulse Rate [Bilateral Radial] 71 Respiratory Rate 18 Respiratory Rate 20 Blood Pressure [Left Arm] 139/65 Blood Pressure [Left Arm] 123/66 O2 Sat by Pulse Oximetry 98 O2 Sat by Pulse Oximetry 98 Oriented: Normal, Time, Person and Place Eyes: Normal Ear: Normal Nose: Normal Throat: Normal Respiratory: Clear Throughout Cardiovascular: Normal Auscultation: Bowel Sounds: Normal Palpation: Normal Tenderness: Normal Skin: Normal Musculoskeletal: Right and Leg Psychiatric: Normal Mood Description: Calm Affect: Normal Speech Pattern: Clear and Appropriate Assessment/Plan (1) Muscle spasm: Narrative Support Text: Patient has acute groin strain after fall last week. She has become nonambulatory because of this and is having adult failure to thrive syndrome. Patient needs temporary rehab correction stay with physical therapy consultation to help patient get back ambulatory so she can go home with the status of her. Status: Acute Plan: In the meantime I will start the patient on baclofen 5 mg 3 times daily and put in for physical therapy consultation. (2) Difficulty standing: Status: Acute (3) Dependent on walker for ambulation: Status: Acute (4) Poor tolerance for ambulation: Status: Acute (5) Adult failure to thrive: Status: Acute
--- NOTE | 2023-02-03 10:53 | PCM.PROG ---
Progress Note Progress Note for Day of Date of Exam: 02/03/23 Subjective Subjective: Patient is lying in bed comfortably this morning. She reports that she is still having some discomfort in the right groin so I told her I would give some baclofen ordered for her. We will start her on baclofen 5 mg 3 times daily. We have also resumed her regular home medications as before. Labs this morning look good overall with no acute problems there. Past Medical Family Social History Allergies: Allergies aspirin Allergy (Unknown, Verified 11/03/22 09:29) fluconazole [From Diflucan] Allergy (Verified 11/03/22 09:29) rofecoxib [From Vioxx] Allergy (Verified 11/03/22 09:29) tizanidine [From Zanaflex] Allergy (Verified 11/03/22 09:29) Review of Systems ROS: No change since H&P Vital Signs and I&O's Vital Signs: Vital Signs Temperature 98.1 F Temperature 98.7 F Pulse Rate [Bilateral Radial] 79 Pulse Rate [Bilateral Radial] 71 Respiratory Rate 18 Respiratory Rate 20 Blood Pressure [Left Arm] 139/65 Blood Pressure [Left Arm] 123/66 O2 Sat by Pulse Oximetry 98 O2 Sat by Pulse Oximetry 98 Intake and Output: Intake & Output 01/31/23 02/01/23 02/02/23 02/03/23 11:59 11:59 11:59 11:59 Intake Total 1241 / 1241 Balance 1241 / 1241 Physical Exam Oriented: Normal, Time, Person and Place Eyes: Normal Ear: Normal Nose: Normal Throat: Normal Respiratory: Normal Cardiovascular: Normal Auscultation: Bowel Sounds: Normal Tenderness: Normal Skin: Normal Musculoskeletal: Right and Leg Psychiatric: Normal Mood Description: Calm Affect: Normal Speech Pattern: Clear and Appropriate Laboratory and Diagnostics 02/03/23 05:16 02/03/23 05:16 Labs: 02/02/23 21:44 Urine,Clean Catch Urine Culture - Preliminary Laboratory WBC 6.4 X10^3/uL (3.6-10.0) 02/03/23 05:16 RBC 3.51 X10^6/uL (3.5-5.4) 02/03/23 05:16 Hgb 11.1 g/dL (12.0-16.0) L 02/03/23 05:16 Hct 33.2 % (36.0-47.0) L 02/03/23 05:16 MCV 94.6 fL (80.0-100.0) 02/03/23 05:16 MCH 31.7 pg (27.0-34.0) 02/03/23 05:16 MCHC 33.5 g/dL (33.0-35.0) 02/03/23 05:16 RDW 15.8 % (11.6-16.5) 02/03/23 05:16 Plt Count 292 X10^3/uL (150.0-450.0) 02/03/23 05:16 MPV 8.5 fL (7.4-11.0) 02/03/23 05:16 Neut % (Auto) 43.7 % (42.0-75.0) 02/03/23 05:16 Lymph % (Auto) 41.0 % (21.0-51.0) 02/03/23 05:16 [place] % (Auto) 9.8 % (0.0-13.0) 02/03/23 05:16 Eos % (Auto) 4.4 % (0.9-2.9) H 02/03/23 05:16 Baso % (Auto) 1.1 % (0.2-1.0) H 02/03/23 05:16 Neut # (Auto) 2.8 x10^3/uL (2.2-4.8) 02/03/23 05:16 Lymph # (Auto) 2.6 X10^3/uL (1.3-2.9) 02/03/23 05:16 [place] # (Auto) 0.6 x10^3/uL (0.3-0.8) 02/03/23 05:16 Eos # (Auto) 0.3 x10^3/uL (0.0-0.2) H 02/03/23 05:16 Baso # (Auto) 0.1 X10^3/uL (0.0-0.1) 02/03/23 05:16 Absolute Nucleated RBC 0.0 /100WBC 02/03/23 05:16 Sodium 135 mmol/L (136-145) L 02/03/23 05:16 Corrected Sodium TNP 02/03/23 05:16 Potassium 3.9 mmol/L (3.5-5.1) 02/03/23 05:16 Chloride 100 mmol/L (98-107) 02/03/23 05:16 Carbon Dioxide 26.5 mmol/L (21-32) 02/03/23 05:16 BUN 18 mg/dL (7-18) 02/03/23 05:16 Creatinine 0.72 mg/dL (0.55-1.02) 02/03/23 05:16 Est GFR (MDRD) Af Amer > 60 (>60) 02/03/23 05:16 Est GFR (MDRD) Non-Af > 60 (>60) 02/03/23 05:16 Glucose 100 mg/dL (65-99) H 02/03/23 05:16 Calcium 8.6 mg/dL (8.5-10.1) 02/03/23 05:16 Corrected Calcium 9.5 mg/dL (8.5-10.1) 02/03/23 05:16 Magnesium 2.0 mg/dL (2.0-2.9) 02/02/23 15:43 Total Bilirubin 0.30 mg/dL (0.2-1.0) 02/03/23 05:16 AST 24 Units/L (15-37) 02/03/23 05:16 ALT 16 Units/L (12-78) 02/03/23 05:16 Alkaline Phosphatase 115 Units/L (46-116) 02/03/23 05:16 Total Protein 6.1 g/dL (6.4-8.2) L 02/03/23 05:16 Albumin 2.9 g/dL (3.4-5.0) L 02/03/23 05:16 Globulin 3.2 g/dL (2.5-4.5) 02/03/23 05:16 Albumin/Globulin Ratio 0.9 Ratio (1.1-2.1) L 02/03/23 05:16 Specimen Type Clean catch urine 02/02/23 21:44 Urine Color Yellow (YELLOW) 02/02/23 21:44 Urine Appearance Cloudy (CLEAR) 02/02/23 21:44 Urine pH 7.0 (5.0 - 8.0) 02/02/23 21:44 Ur Specific [place] 1.015 (1.000-1.030) 02/02/23 21:44 Urine Protein 1+ (NEGATIVE) 02/02/23 21:44 Urine Glucose (UA) Negative (NEGATIVE) 02/02/23 21:44 Urine Ketones Negative (NEGATIVE) 02/02/23 21:44 Urine Blood 1+ (NEGATIVE) 02/02/23 21:44 Urine Nitrite Positive (NEGATIVE) 02/02/23 21:44 Urine Bilirubin Negative (NEGATIVE) 02/02/23 21:44 Urine Urobilinogen Normal (NORMAL) 02/02/23 21:44 Ur Leukocyte Esterase 3+ (NEGATIVE) 02/02/23 21:44 Urine RBC 3-5 /HPF (0-3) A 02/02/23: Urine WBC 5-10 /HPF (0-5) A 02/02/23 21:44 Ur Squamous Epith Cells Moderate /HPF (NEGATIVE) 02/02/23 21:44 Urine Bacteria 4+ /HPF (NEGATIVE) 02/02/23 21:44 Ur Culture Indicated? Yes/culture set up 02/02/23 21:44 Plan (1) Muscle spasm: Status: Acute Plan: In the meantime I will start the patient on baclofen 5 mg 3 times daily and put in for physical therapy consultation. (2) Difficulty standing: Status: Acute (3) Dependent on walker for ambulation: Status: Acute (4) Poor tolerance for ambulation: Status: Acute (5) Adult failure to thrive: Status: Acute Plan: We are currently working on temporary [facility] rehab for the pa [facility] and wants we get her accepted and she stays in the hospital for 3 days we will transfer to [facility].
[2023-02-03] MEDS: ROCEPHIN VIAL 1 GRAM 1 G in NS 100 ML IV 100 ML IV SCH (14:43)
[2023-02-03] MEDS: NS 1/2 1,000 ML IV 1,000 ML IV SCH (16:16)
[2023-02-03] MEDS: ZYLOPRIM PO SCH (20:34)
[2023-02-03] MEDS: ZOCOR TAB 40 MG PO SCH (20:34)
[2023-02-03] MEDS: CYMBALTA PO SCH (20:34)
[2023-02-04] MEDS: LIORESAL PO SCH ×3 (02:06→17:04)
[2023-02-04 06:19] LABS: BASOPHILS # (AUTO) 0.1 X10^3/uL (0.0-0.1); BASOPHILS % (AUTO) 1.3 % (0.2-1.0); EOSINOPHILS # (AUTO) 0.2 x10^3/uL (0.0-0.2); EOSINOPHILS % (AUTO) 2.8 % (0.9-2.9); HEMATOCRIT 35.6 % (36.0-47.0); HEMOGLOBIN 12.1 g/dL (12.0-16.0); LYMPHOCYTES # (AUTO) 2.2 X10^3/uL (1.3-2.9); LYMPHOCYTES % (AUTO) 30.2 % (21.0-51.0); MEAN CORPUSCULAR VOLUME 94.2 fL (80.0-100.0); MEAN PLATELET VOLUME 8.1 fL (7.4-11.0); MONOCYTES # (AUTO) 0.7 x10^3/uL (0.3-0.8); MONOCYTES % (AUTO) 8.9 % (0.0-13.0); NEUTROPHILS # (AUTO) 4.2 x10^3/uL (2.2-4.8); NEUTROPHILS % (AUTO) 56.8 % (42.0-75.0); PLATELET COUNT 325 X10^3/uL (150.0-450.0); RED BLOOD COUNT 3.78 X10^6/uL (3.5-5.4); RED CELL DISTRIBUTION WIDTH 15.4 % (11.6-16.5); WHITE BLOOD COUNT 7.4 X10^3/uL (3.6-10.0)
[2023-02-04 06:27] LABS: ALANINE AMINOTRANSFERASE 12 Units/L (12-78); ALBUMIN 3.1 g/dL (3.4-5.0); ALKALINE PHOSPHATASE 129 Units/L (46-116); ASPARTATE AMINO TRANSFERASE 25 Units/L (15-37); BLOOD UREA NITROGEN 14 mg/dL (7-18); CALCIUM 9.2 mg/dL (8.5-10.1); CARBON DIOXIDE 24.7 mmol/L (21-32); CHLORIDE 98 mmol/L (98-107); COR CA(FOR HYPOALB) 9.9 mg/dL (8.5-10.1); CREATININE 0.59 mg/dL (0.55-1.02); GLUCOSE 108 mg/dL (65-99); POTASSIUM 4.5 mmol/L (3.5-5.1); SODIUM 134 mmol/L (136-145); TOTAL PROTEIN 6.6 g/dL (6.4-8.2); eGFR NON BLACK RACES > 60 (>60)
[2023-02-04] MEDS: SINGULAIR TAB 10 MG PO SCH (08:59)
[2023-02-04] MEDS: COLACE CAP 100 MG PO SCH ×2 (08:59→20:34)
[2023-02-04] MEDS: ROCEPHIN VIAL 1 GRAM 1 G in NS 100 ML IV 100 ML IV SCH (09:00)
[2023-02-04] MEDS: LOVENOX INJ 40 MG SYR SC SCH (09:00)
[2023-02-04] MEDS: NORVASC TAB 10 MG PO SCH (09:00)
[2023-02-04] MEDS: VITAMIN C PO SCH (09:00)
[2023-02-04] MEDS: VITAMIN D3 25 mcg (1,000 UNITS) PO SCH (09:00)
[2023-02-04] MEDS: TAB-A-VITE PO SCH (09:00)
--- NOTE | 2023-02-04 16:29 | PCM.PROG ---
Progress Note Progress Note for Day of Date of Exam: 02/04/23 Subjective Subjective: Patient is lying in bed comfortably this morning. She reports that her right groin is feeling better with the baclofen. Her urinalysis came back yesterday and showed that she does have a UTI and the culture shows an E. coli. We started her on IV Rocephin yesterday and we will continue that at this time. As far as I know she will be transferred tomorrow to [facility] to start her inpatient rehabilitation. That time we will change her over to p.o. Augmentin 500 mg p.o. twice daily for a week. We will continue her baclofen also for her right groin strain at the time of discharge/transfer to [place] tomorrow. Past Medical Family Social History Allergies: Allergies aspirin Allergy (Unknown, Verified 11/03/22 09:29) fluconazole [From Diflucan] Allergy (Verified 11/03/22 09:29) rofecoxib [From Vioxx] Allergy (Verified 11/03/22 09:29) tizanidine [From Zanaflex] Allergy (Verified 11/03/22 09:29) Review of Systems ROS: No change since H&P Vital Signs and I&O's Vital Signs: Vital Signs Temperature 98.6 F Pulse Rate [Bilateral Radial] 83 Respiratory Rate 18 Blood Pressure [Left Arm] 157/70 O2 Sat by Pulse Oximetry 94 Intake and Output: Intake & Output 02/02/23 02/03/23 02/04/23 02/05/23 11:59 11:59 11:59 11:59 Intake Total 1241 / 1241 2117 / 2117 120 / 120 Balance 1241 / 1241 2117 / 2117 120 / 120 Physical Exam Oriented: Normal, Time, Person and Place Eyes: Normal Ear: Normal Nose: Normal Throat: Normal Respiratory: Normal Cardiovascular: Normal Auscultation: Bowel Sounds: Normal Tenderness: Normal Skin: Normal Musculoskeletal: Right and Leg Psychiatric: Normal Mood Description: Calm Affect: Normal Speech Pattern: Appropriate Laboratory and Diagnostics 02/04/23 05:48 02/04/23 05:48 Labs: 02/02/23 21:44 Urine,Clean Catch Urine Culture - Final Escherichia Coli Laboratory WBC 7.4 X10^3/uL (3.6-10.0) 02/04/23 05:48 RBC 3.78 X10^6/uL (3.5-5.4) 02/04/23 05:48 Hgb 12.1 g/dL (12.0-16.0) 02/04/23 05:48 Hct 35.6 % (36.0-47.0) L 02/04/23 05:48 MCV 94.2 fL (80.0-100.0) 02/04/23 05:48 MCH 32.0 pg (27.0-34.0) 02/04/23 05:48 MCHC 34.0 g/dL (33.0-35.0) 02/04/23 05:48 RDW 15.4 % (11.6-16.5) 02/04/23 05:48 Plt Count 325 X10^3/uL (150.0-450.0) 02/04/23 05:48 MPV 8.1 fL (7.4-11.0) 02/04/23 05:48 Neut % (Auto) 56.8 % (42.0-75.0) 02/04/23 05:48 Lymph % (Auto) 30.2 % (21.0-51.0) 02/04/23 05:48 [place] % (Auto) 8.9 % (0.0-13.0) 02/04/23 05:48 Eos % (Auto) 2.8 % (0.9-2.9) 02/04/23 05:48 Baso % (Auto) 1.3 % (0.2-1.0) H 02/04/23 05:48 Neut # (Auto) 4.2 x10^3/uL (2.2-4.8) 02/04/23 05:48 Lymph # (Auto) 2.2 X10^3/uL (1.3-2.9) 02/04/23 05:48 [place] # (Auto) 0.7 x10^3/uL (0.3-0.8) 02/04/23 05:48 Eos # (Auto) 0.2 x10^3/uL (0.0-0.2) 02/04/23 05:48 Baso # (Auto) 0.1 X10^3/uL (0.0-0.1) 02/04/23 05:48 Absolute Nucleated RBC 0.0 /100WBC 02/04/23 05:48 Sodium 134 mmol/L (136-145) L 02/04/23 05:48 Corrected Sodium TNP 02/04/23 05:48 Potassium 4.5 mmol/L (3.5-5.1) 02/04/23 05:48 Chloride 98 mmol/L (98-107) 02/04/23 05:48 Carbon Dioxide 24.7 mmol/L (21-32) 02/04/23 05:48 BUN 14 mg/dL (7-18) 02/04/23 05:48 Creatinine 0.59 mg/dL (0.55-1.02) 02/04/23 05:48 Est GFR (MDRD) Af Amer > 60 (>60) 02/04/23 05:48 Est GFR (MDRD) Non-Af > 60 (>60) 02/04/23 05:48 Glucose 108 mg/dL (65-99) H 02/04/23 05:48 Calcium 9.2 mg/dL (8.5-10.1) 02/04/23 05:48 Corrected Calcium 9.9 mg/dL (8.5-10.1) 02/04/23 05:48 Magnesium 2.0 mg/dL (2.0-2.9) 02/02/23 15:43 Total Bilirubin 0.40 mg/dL (0.2-1.0) 02/04/23 05:48 AST 25 Units/L (15-37) 02/04/23 05:48 ALT 12 Units/L (12-78) 02/04/23 05:48 Alkaline Phosphatase 129 Units/L (46-116) H 02/04/23 05:48 Total Protein 6.6 g/dL (6.4-8.2) 02/04/23 05:48 Albumin 3.1 g/dL (3.4-5.0) L 02/04/23 05:48 Globulin 3.5 g/dL (2.5-4.5) 02/04/23 05:48 Albumin/Globulin Ratio 0.9 Ratio (1.1-2.1) L 02/04/23 05:48 Specimen Type Clean catch urine 02/02/23 21:44 Urine Color Yellow (YELLOW) 02/02/23:44 Urine Appearance Cloudy (CLEAR) 02/02/23: Urine pH 7.0 (5.0 - 8.0) 02/02/23: Ur Specific [place] 1.015 (1.000-1.030) 02/02/23: Urine Protein 1+ (NEGATIVE) 02/02/23: Urine Glucose (UA) Negative (NEGATIVE) 02/02/23: Urine Ketones Negative (NEGATIVE) 02/02/23: Urine Blood 1+ (NEGATIVE) 02/02/23: Urine Nitrite Positive (NEGATIVE) 02/02/23: Urine Bilirubin Negative (NEGATIVE) 02/02/23: Urine Urobilinogen Normal (NORMAL) 02/02/23: Ur Leukocyte Esterase 3+ (NEGATIVE) 02/02/23: Urine RBC 3-5 /HPF (0-3) A 02/02/23: Urine WBC 5-10 /HPF (0-5) A 02/02/23: Ur Squamous Epith Cells Moderate /HPF (NEGATIVE) 02/02/23: Urine Bacteria 4+ /HPF (NEGATIVE) 02/02/23: Ur Culture Indicated? Yes/culture set up 02/02/23:44 Plan (1) Muscle spasm: Status: Acute Plan: In the meantime I will start the patient on baclofen 5 mg 3 times daily and put in for physical therapy consultation. (2) UTI (urinary tract infection): Status: Acute Qualifiers: Urinary tract infection type: acute cystitis Narrative Support Text: UTI secondary to E. coli. Plan: Continue IV Rocephin at this time. I will plan on changing her over to Augmentin at time of discharge/transfer to his [facility]. (3) Difficulty standing: Status: Acute (4) Dependent on walker for ambulation: Status: Acute (5) Poor tolerance for ambulation: Status: Acute (6) Adult failure to thrive: Status: Acute Plan: We are currently working on temporary half-way rehab for the patient and wants we get her accepted and she stays in the hospital for 3 days we will transfer to [facility].
[2023-02-04] MEDS: NS 1/2 1,000 ML IV 1,000 ML IV SCH (17:04)
[2023-02-04] MEDS: ZYLOPRIM PO SCH (20:33)
[2023-02-04] MEDS: ZOCOR TAB 40 MG PO SCH (20:33)
[2023-02-04] MEDS: CYMBALTA PO SCH (20:34)
[2023-02-05] MEDS: LIORESAL PO SCH ×2 (02:44→09:25)
[2023-02-05 03:52] VITALS: O2SAT 95
[2023-02-05 06:16] LABS: BASOPHILS # (AUTO) 0.1 X10^3/uL (0.0-0.1); BASOPHILS % (AUTO) 0.9 % (0.2-1.0); EOSINOPHILS # (AUTO) 0.3 x10^3/uL (0.0-0.2); EOSINOPHILS % (AUTO) 4.1 % (0.9-2.9); HEMATOCRIT 34.6 % (36.0-47.0); HEMOGLOBIN 11.8 g/dL (12.0-16.0); LYMPHOCYTES # (AUTO) 2.1 X10^3/uL (1.3-2.9); LYMPHOCYTES % (AUTO) 32.5 % (21.0-51.0); MEAN CORPUSCULAR HEMOGLOBIN 32.1 pg (27.0-34.0); MEAN CORPUSCULAR HGB CONC 34.1 g/dL (33.0-35.0); MEAN CORPUSCULAR VOLUME 94.2 fL (80.0-100.0); MEAN PLATELET VOLUME 8.4 fL (7.4-11.0); MONOCYTES # (AUTO) 0.5 x10^3/uL (0.3-0.8); MONOCYTES % (AUTO) 8.3 % (0.0-13.0); NEUTROPHILS # (AUTO) 3.5 x10^3/uL (2.2-4.8); NEUTROPHILS % (AUTO) 54.2 % (42.0-75.0); PLATELET COUNT 294 X10^3/uL (150.0-450.0); RED BLOOD COUNT 3.67 X10^6/uL (3.5-5.4); RED CELL DISTRIBUTION WIDTH 15.4 % (11.6-16.5); WHITE BLOOD COUNT 6.5 X10^3/uL (3.6-10.0)
[2023-02-05 06:44] LABS: ALANINE AMINOTRANSFERASE 15 Units/L (12-78); ALBUMIN 2.9 g/dL (3.4-5.0); ALKALINE PHOSPHATASE 122 Units/L (46-116); ASPARTATE AMINO TRANSFERASE 21 Units/L (15-37); BLOOD UREA NITROGEN 11 mg/dL (7-18); CALCIUM 8.9 mg/dL (8.5-10.1); CARBON DIOXIDE 24.4 mmol/L (21-32); CHLORIDE 99 mmol/L (98-107); COR CA(FOR HYPOALB) 9.8 mg/dL (8.5-10.1); CREATININE 0.59 mg/dL (0.55-1.02); GLUCOSE 100 mg/dL (65-99); POTASSIUM 3.9 mmol/L (3.5-5.1); SODIUM 135 mmol/L (136-145); TOTAL PROTEIN 6.3 g/dL (6.4-8.2); eGFR NON BLACK RACES > 60 (>60)
[2023-02-05] MEDS ORDERED: NS 1/2 1,000 ML IV 1,000 ML IV ONE (06:50)
[2023-02-05] MEDS: NS 1/2 1,000 ML IV 1,000 ML IV SCH (06:59)
[2023-02-05 08:26] VITALS: RESP 18
[2023-02-05] MEDS: ROCEPHIN VIAL 1 GRAM 1 G in NS 100 ML IV 100 ML IV SCH (08:55)
[2023-02-05] MEDS: LOVENOX INJ 40 MG SYR SC SCH (08:55)
[2023-02-05] MEDS: NORVASC TAB 10 MG PO SCH (08:56)
[2023-02-05] MEDS: COLACE CAP 100 MG PO SCH (08:56)
[2023-02-05] MEDS: VITAMIN D3 25 mcg (1,000 UNITS) PO SCH (08:56)
[2023-02-05] MEDS: TAB-A-VITE PO SCH (08:56)
[2023-02-05] MEDS: SINGULAIR TAB 10 MG PO SCH (08:56)
[2023-02-05] MEDS: VITAMIN C PO SCH (08:57)
[2023-02-05 12:17] VITALS: BP 136/77; PULSE 83; TEMP 98.3
== END 2023-02-05 14:04 | DRG 690 ==
LOC: MED/SURG → OBSVTOIN 14:10 → INTOOBSV 14:10
PROVIDERS: ADMIT Family Medicine; ATTEND Family Medicine